=== PATIENT | male | born 1935 | race Caucasian/White ===

== ENCOUNTER → 2016-10-18 | Outpatient (CLI) | payer BC ==
[~2016-10-18] MED LIST: ALLO300T2 PO; ASPI-232 PO; ATOR-54 PO; CALC-220 PO; CHOL400C7 PO; CLOP1TAB15 PO; LISI-461 PO; METO25TA56 PO; NITR0.4S UT; OXYC-57 PO; SILD100T PO; TYLOTC500 PO; [UNRECOGNIZED DRUG - OTHER]
--- NOTE | 2016-10-18 16:36 | ECHOCARDIOGRAM REPORT ---
*NOTICE TO RECEIVING REPUBLICAN AGENCY This information is strictly Confidential and protected under [place] law. [place] law prohibits you from making any further disclosure of this information unless further disclosure is expressly permitted by the written consent of the person to whom it pertains or is authorized by law. A general authorization for the release of medical or other information is not sufficient for this purpose. Hospital accepts no responsibility if the information is made available to any other person, INCLUDING THE PATIENT. Interpretation Summary * Name: AURELIA GOOD Study Date: 10/18/2016 03:12 PM * Patient Location: [facility] HR: 68 * : 1935 (M/d/yyyy) Gender: Male Height: 71 in * Age: 81 yrs Ethnicity: [place] Weight: 200 lb * Ordering Physician: Gil Ambrose MD * Performed By: Autumn Snigh RCS * * Reason For Study: New heart murmur * BSA: 2.1 m2 * Normal biventricular systolic function. * Normal chamber dimensions. * No significant valvular abnormalities. * -- Conclusions -- * Aortic valve sclerosis mild, without significant aortic valvular stenosis. Procedure Details * A complete two-dimensional transthoracic echocardiogram was performed (2D, M-mode, Doppler and color flow Doppler). Left Ventricle * The left ventricle is normal in size. * There is normal left ventricular wall thickness. * Ejection Fraction = 60-65%. * Left ventricular systolic function is normal. * The left ventricular wall motion is normal. Right Ventricle * The right ventricle is normal in size and function. Atria * The left atrial size is normal. * Right atrial size is normal. * No ASD detected; PFO is not assessed. Mitral Valve * There is mild mitral annular calcification. * There is no mitral valve stenosis. * There is trace mitral regurgitation. Tricuspid Valve * The tricuspid valve is normal. * There is no tricuspid stenosis. * There is trace tricuspid regurgitation. Aortic Valve * The aortic valve is trileaflet. * The aortic valve opens well. * Aortic valve sclerosis mild, without significant aortic valvular stenosis. * Aortic stenosis is absent. * No aortic regurgitation is present. Pulmonic Valve * The pulmonic valve is not well visualized. * Trace pulmonic valvular regurgitation. Great Vessels * The aortic root is normal size. Pericardium/Pleural * There is no pericardial effusion. Great Vessels * Normal inferior vena cava diameter and respiratory variation suggests normal central venous pressure. MMode 2D Measurements and Calculations IVSd 1.1 cm LVIDd 4.6 cm LVIDs 3.0 cm LVPWd 1.1 cm IVS/LVPW 1.0 FS 34.3 % EDV(Teich) 95.8 ml ESV(Teich) 35.1 ml EF(Teich) 63.4 % EDV(cubed) 95.4 ml ESV(cubed) 27.1 ml EF(cubed) 71.6 % LV mass(C)d 181.8 grams LV mass(C)dI 86.2 grams/m\S\2 SV(Teich) 60.7 ml SI(Teich) 28.8 ml/m\S\2 SV(cubed) 68.3 ml SI(cubed) 32.4 ml/m\S\2 Ao root diam 3.0 cm Ao root area 7.0 cm\S\2 ACS 1.7 cm LA dimension 3.1 cm asc Aorta Diam 3.4 cm LA/Ao 1.0 LVAd ap4 25.5 cm\S\2 LVLd ap4 7.5 cm EDV(MOD-sp4) 74.1 ml EDV(sp4-el) 73.9 ml LVAs ap4 13.8 cm\S\2 LVLs ap4 6.1 cm ESV(MOD-sp4) 27.6 ml ESV(sp4-el) 26.4 ml EF(MOD-sp4) 62.7 % EF(sp4-el) 64.2 % LVAd ap2 26.4 cm\S\2 LVLd ap2 8.3 cm EDV(MOD-sp2) 70.6 ml EDV(sp2-el) 71.2 ml LVAs ap2 14.2 cm\S\2 LVLs ap2 6.6 cm ESV(MOD-sp2) 27.4 ml ESV(sp2-el) 26.1 ml EF(MOD-sp2) 61.1 % EF(sp2-el) 63.4 % LVLd %diff 10.0 % EDV(MOD-bp) 76.5 ml LVLs %diff 7.3 % ESV(MOD-bp) 28.7 ml EF(MOD-bp) 62.5 % SV(MOD-sp4) 46.5 ml SI(MOD-sp4) 22.1 ml/m\S\2 SV(MOD-sp2) 43.1 ml SI(MOD-sp2) 20.4 ml/m\S\2 SV(MOD-bp) 47.8 ml SI(MOD-bp) 22.7 ml/m\S\2 SV(sp4-el) 47.5 ml SI(sp4-el) 22.5 ml/m\S\2 SV(sp2-el) 45.1 ml SI(sp2-el) 21.4 ml/m\S\2 Doppler Measurements and Calculations MV E max farhan 83.0 cm/sec MV A max farhan 72.3 cm/sec MV E/A 1.1 MV dec time 0.23 sec Ao V2 max 150.7 cm/sec Ao max PG 9.1 mmHg Ao max PG (full) 6.7 mmHg LV V1 max PG 2.4 mmHg LV V1 max 77.6 cm/sec PA V2 max 144.8 cm/sec PA max PG 8.4 mmHg PA acc slope 375.7 cm/sec\S\2 PA acc time 0.14 sec PA pr(Accel) 14.4 mmHg
== END | disposition home or self-care (01) ==
LOC: C.CPL 13:42
PROVIDERS: ATTEND Family Medicine
DX: R01.1 Cardiac murmur, unspecified (principal)

== ENCOUNTER → 2017-05-20 | Outpatient (CLI) | payer BC ==
--- NOTE | 2017-05-20 15:23 | DIAGNOSTIC IMAGING REPORT ---
KUB HISTORY: N20.0 [id number] COMPARISON: KUB 03/17/2016. FINDINGS: The bowel gas pattern is non-obstructive. There is no organomegaly. Large bilateral extensive nephrolithiasis noted without significant change from comparison. No ureteral lithiasis identified. Multiple phleboliths are again seen within the pelvis. There are multiple surgical clips in the pelvis as well. Right hip arthroplasty noted. Moderate degenerative changes about the left hip. No pneumoperitoneum or pneumatosis. No fracture. IMPRESSION: 1. Bilateral nephrolithiasis redemonstrated. No ureteral lithiasis. 2. Nonobstructive bowel gas pattern. Electronically signed by: Stew Goetz M.D. 05/20/2017 3:21 PM Dictated Date/Time: 05/20/2017 3:20 PM
== END | disposition home or self-care (01) ==
LOC: C.RAD 14:35
PROVIDERS: ATTEND Urology
DX: C61 Malignant neoplasm of prostate (principal); N20.0 Calculus of kidney

== ENCOUNTER → 2017-06-28 | Outpatient (CLI) | payer BC ==
[2017-06-28 10:07] LABS: BASO % 0.3 %; BASO ABS # 0.02 K/uL (0-0.2); COMPLETE YES; EOS % 1.7 %; HEMATOCRIT 43.4 % (42-52); IG% 0.5 %; LYMPH % 16.6 %; LYMPH ABS # 1.29 K/uL (1.2-3.4); MEAN CORPUSCULAR HEMOGLOBIN 29.8 pg (25-34); MEAN CORPUSCULAR HGB CONC 32.7 g/dl (32-36); MEAN PLATELET VOLUME 10.2 fL (7.4-10.4); MONO % 11.7 %; NEUT % 69.2 %; PLATELET COUNT 234 K/uL (130-400); RED BLOOD COUNT 4.77 M/uL (4.7-6.1); WHITE BLOOD COUNT 7.77 K/uL (4.8-10.8)
[2017-06-28 10:25] LABS: ALT/SGPT 19 U/L (12-78); AST/SGOT 16 U/L (15-37); BLOOD UREA NITROGEN 14 mg/dl (7-18); BUN/CREATININE RATIO 11.9 (10-20); CALCIUM 9.7 mg/dl (8.5-10.1); CARBON DIOXIDE 29 mmol/L (21-32); CHLORIDE 106 mmol/L (98-107); CHOLESTEROL 84 mg/dl (0-200); GLUCOSE 120 mg/dl (70-99); POTASSIUM 4.2 mmol/L (3.5-5.1); SODIUM 140 mmol/L (136-145); TRIGLYCERIDES 77 mg/dl (0-150); VERY LOW DENSITY LIPOPROT CALC 15 mg/dl
[2017-06-28 10:28] LABS: HDL CHOLESTEROL 42 mg/dl
== END | disposition home or self-care (01) ==
LOC: C.LAB1850 09:03
PROVIDERS: ATTEND Internal Medicine Cardiovascular Disease
DX: E78.5 Hyperlipidemia, unspecified (principal); I25.10 Atherosclerotic heart disease of native coronary artery without angina pectoris; I10 Essential (primary) hypertension

== ENCOUNTER → 2017-08-31 | Outpatient (CLI) | payer BC ==
--- NOTE | 2017-08-31 09:39 | DIAGNOSTIC IMAGING REPORT ---
ABDOMEN COMPLETE (US) CLINICAL HISTORY: Blood in stool. Elevated LFTs. COMPARISON STUDY: Noncontrast CT scan performed June 2015 FINDINGS: There is a 15 mm right lobe hepatic cyst. There is intra and extrahepatic biliary ductal dilatation. The common bile duct measures 14 mm. There is a 3 cm hypoechoic lesion in the region the pancreatic head. This could represent a lymph node or pancreatic head mass. The gallbladder surgically absent The spleen measures 10.7 cm in length. The left kidney measures 10.4 cm in length. The right kidney measures 10 cm in length. There is bilateral nephrolithiasis. There is no evidence of abdominal aortic dilatation.. IMPRESSION: 1. Intra and extrahepatic biliary ductal dilatation. 2. Possible 3 cm mass in the pancreatic head region. CT scanning is recommended in follow-up. 3. Bilateral nephrolithiasis Electronically signed by: Loyd Valle M.D. 08/31/2017 9:38 AM Dictated Date/Time: 08/31/2017 9:34 AM
== END | disposition home or self-care (01) ==
LOC: C.ULTRBC 08:31
PROVIDERS: ATTEND Nurse Practitioner
DX: R79.89 Other specified abnormal findings of blood chemistry (principal); R19.7 Diarrhea, unspecified; K92.1 Melena

== ENCOUNTER → 2017-09-07 | Outpatient (CLI) | payer BC ==
[~2017-09-07] MED LIST changes: +OPTIRAY 320 IV PRN
--- NOTE | 2017-09-07 12:18 | DIAGNOSTIC IMAGING REPORT ---
CT OF THE ABDOMEN AND PELVIS WITH AND WITHOUT CONTRAST PANCREAS PROTOCOL CLINICAL HISTORY: JAUNDICE, PANCREATIC MASS. COMPARISON STUDY: CT of the abdomen and pelvis June 20, 2015 and abdominal ultrasound August 21, 2017. TECHNIQUE: Unenhanced, arterial and venous phase imaging was performed. Injection of 93 cc of Optiray 320 IV was uneventful. A dose lowering technique was utilized adhering to the principles of ALARA. Oral contrast was administered. FINDINGS: Visualized portions of the lung bases demonstrate multiple pulmonary nodules which are unchanged since CT of June 20, 2015. These are benign given stability. Several hepatic cysts are noted. No new hepatic lesions are present. Moderate pancreatic and biliary ductal dilatation is noted with abrupt cut off of the common bile duct and the main pancreatic duct. The main pancreatic duct cut off is within the pancreatic neck. There is a hypodense 4.4 x 2.3 cm pancreatic head and neck mass. There is pancreatic glandular atrophy. The mass results in severe narrowing of the portosplenic venous confluence. The main, left and right portal veins are patent. There is a minimally enlarged hepatic lymph node shown on axial image 104 of 511. This measures 1 cm in short axis diameter. A mildly enlarged portacaval lymph node measures 1.1 cm in short axis diameter. The superior mesenteric artery is patent. There is suspected narrowing of the gastroduodenal artery. There is no evidence for a bowel obstruction. Multiple bilateral renal calculi are noted. There are no ureteral calculi and there is no hydronephrosis. There are several renal cysts. The spleen and adrenal glands are unremarkable. No omental nodules are noted. The appendix is normal. Caliber and wall thickness of small and large bowel are normal. Prostate is surgically absent. There is a right hip arthroplasty. There are no suspicious osseous lesions. There is moderate atherosclerotic plaque of the abdominal aorta. IMPRESSION: 1. 4.4 x 2.3 cm pancreatic head and neck mass with resultant biliary and pancreatic ductal dilatation. 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 No involvement of the superior mesenteric artery. Mildly enlarged marika hepatis and aortocaval lymph nodes raise the possibility of shannon spread of disease. No evidence for distant metastatic disease within the abdomen or pelvis by CT. 2. Bilateral nephrolithiasis. 3. Several pulmonary nodules within the lung bases which are unchanged since CT of June 20, 2015 and are benign. Electronically signed by: Kevin Thomason M.D. 09/07/2017 12:17 PM Dictated Date/Time: 09/07/2017 11:31 AM
== END | disposition home or self-care (01) ==
LOC: C.CTS 11:03
PROVIDERS: ATTEND Family Medicine
DX: K86.9 Disease of pancreas, unspecified (principal); R17 Unspecified jaundice; N20.0 Calculus of kidney; R91.8 Other nonspecific abnormal finding of lung field; K83.8 Other specified diseases of biliary tract

== ENCOUNTER 2017-09-23 06:12 | Day surgery (SDC) | payer BC ==
[2017-09-22 15:10] VITALS: BMI 26.0
[~2017-09-23] VITALS: Ht 177.8 cm; Wt 80.5 kg
[~2017-09-23 06:12] MED LIST changes: -CALC-220 PO; +CALC600T9 PO; -NITR0.4S UT; +NTRGSL/4 UT; -OPTIRAY 320 IV PRN; -OXYC-57 PO; -SILD100T PO; -TYLOTC500 PO; -[UNRECOGNIZED DRUG - OTHER]
[2017-09-23] MEDS ORDERED: ZNTT/150 PO (06:41)
[2017-09-23] MEDS ORDERED: DIPH25CA65 PO (06:42)
[2017-09-23] MEDS ORDERED: KETO2SHA TOP (06:43)
[2017-09-23] MEDS ORDERED: ATOR-22 PO (06:44)
[2017-09-23] MEDS ORDERED: ACET-1311 PO (06:49)
[2017-09-23] MEDS ORDERED: PROPOFOL IV EMULSION 10 MG/ML 20 ML VIAL IV ONE (06:52)
[2017-09-23] MEDS ORDERED: LIDOCAINE HCL 2% 2 ML VIAL (20MG/ML) ONE (06:52)
[2017-09-23] MEDS ORDERED: FENTANYL CITRATE INJ 50 MCG/1 ML 2 ML VIAL ONE (06:52)
[2017-09-23] MEDS ORDERED: ONDANSETRON INJ 2 MG/ML 2 ML VIAL ONE (06:52)
[2017-09-23 06:58] VITALS: BP 100/56; PULSE 72; TEMP 36.6; O2SAT 95; Ht 177.8 cm; Wt 80.5 kg
[2017-09-23 07:18] LABS: BASO % 0.6 %; BASO ABS # 0.06 K/uL (0-0.2); EOS % 0.9 %; EOS ABS # 0.09 K/uL (0-0.5); HEMATOCRIT 32.7 % (42-52); HEMOGLOBIN 11.3 g/dL (14.0-18.0); IG# 0.22 K/uL (0.00-0.02); LYMPH % 13.2 %; LYMPH ABS # 1.29 K/uL (1.2-3.4); MEAN CELL VOLUME 86.3 fL (80-100); MEAN CORPUSCULAR HEMOGLOBIN 29.8 pg (25-34); MEAN PLATELET VOLUME 10.8 fL (7.4-10.4); MONO % 11.5 %; MONO ABS # 1.13 K/uL (0.11-0.59); NEUT % 71.6 %; NEUT ABS # 7.01 K/uL (1.4-6.5); PLATELET COUNT 282 K/uL (130-400); RED CELL DISTRIBUTION WIDTH CV 17.7 % (11.5-14.5); RED CELL DISTRIBUTION WIDTH SD 55.3 fL (36.4-46.3)
[2017-09-23 07:28] LABS: MEAN CORPUSCULAR HGB CONC 34.6 g/dl (32-36)
--- NOTE | 2017-09-23 07:36 | Endo History and Physical ---
History & Physical Date of Service: Sep 23, 2017. Chief Complaint: obstructive jaundice Referring Physician: Dr Ambrose History of Present Illness 1 month progressive painless jaundice Past Medical History Angioplasty/Stent, Arthritis, Male Genitourinary Prob., Cancer, High Cholesterol , Hypertension Past Surgical History Hx Cardiac Surgery: Yes (CARDIAC CATH WITH 2 STENTS-2008) Hx Abdominal Surgery: Yes (GALL BLADDER, LT INGUINAL HERNIA REPAIR) Hx Post-Op Nausea and Vomiting: No Hx Cancer Surgery: Yes (OPEN PROSTATECTOMY) Hx Thoracic Surgery: No Hx Orthopedic: Yes ( RT THR) Hx Urinary Tract Surgery: Yes (OPEN PROSTATECTOMY) Social History Smoking Status: Never Smoker Hx Substance Use: No Hx Alcohol Use: No Allergies Coded Allergies: Amoxicillin (Verified Allergy, Mild, ITCHINESS,RASH, 09/23/17) Penicillins (Verified Allergy, Mild, ITCHINESS, rash, 09/23/17) Current Medications Reported Home Medications Medications Dose Route/Sig Max Daily Dose Days Date Category Dose Instructions Tylenol (Acetaminophen) 325 Mg Tab 325 Mg PO Q6 PRN 09/23/17 Reported Ketoconazole (Ketoconazole (Topical)) 2 % Sha 1 Appln TOP 2XWK 30 09/23/17 Reported Benadryl Allergy (Diphenhydramine Hcl) 25 Mg Cap 1 Cap PO HS 30 09/23/17 Reported Zantac (Ranitidine HCl) 150 Mg Tab 75 Mg PO DAILY 09/23/17 Reported Nitrostat (Nitroglycerin) 0.4 Mg Tab 0.4 Mg UT PRN 09/22/17 Reported Calcium + D (Calcium Carbonate-Vitamin D) 1 Tab Tab 1 Tab PO QPM 09/22/17 Reported Vitamin D 400 Iu (Cholecalciferol) 400 Unit Cap 400 Inter.unit PO QAM 08/07/14 Reported Plavix (Clopidogrel Bisulfate) 75 Mg Tab 75 Mg PO QPM 07/26/14 Reported INSTRUCTED BY SURGEON PER DAUGHTER Lopressor (Metoprolol Tartrate) 25 Mg Tab 12.5 Mg PO BID 07/26/14 Reported Lipitor (Atorvastatin) 20 Mg Tab 20 Mg PO HS 04/27/13 Reported Aspir-81 (Aspirin) 81 Mg Tab 81 Mg PO QPM 04/27/13 Reported INSTRUCTED BY SURGEON PER DAUGHTER Zyloprim (Allopurinol) 300 Mg Tab 300 Mg PO QPM 04/27/13 Reported WITH SUPPER Zestril (Lisinopril) 10 Mg Tab 10 Mg PO QAM 04/27/13 Reported Vital Signs Weight (Kilograms): 80.5 Height (Feet): 5 Height (Inches): 10 Date Time Temp Pulse Resp B/P (MAP) Pulse Ox O2 Delivery O2 Flow Rate FiO2 09/23/17 06:58 36.6 72 18 100/56 (71) 95 Room Air Physical Exam General Appearance: WD/WN, no apparent distress Respiratory/Chest: Auscultation: breath sounds normal Cardiovascular: Heart Auscultation: RRR Abdomen: Bowel Sounds: normal Inspection & Palpation: soft, non-distended, no tenderness, guarding & rebound Assessment and Plan plan for EUS/FNA and ERCP with stent placement consent obtained pt agrees to proceed bart
[2017-09-23 07:39] LABS: BLOOD UREA NITROGEN 36 mg/dl (7-18); CARBON DIOXIDE 24 mmol/L (21-32); GLUCOSE 122 mg/dl (70-99); POTASSIUM 4.1 mmol/L (3.5-5.1); SODIUM 135 mmol/L (136-145)
[2017-09-23] MEDS ORDERED: EpHEDrine SULFATE INJ 50 MG/ML AMP IV PRN (07:45)
[2017-09-23] MEDS ORDERED: NALOXONE HCL 0.4 MG/1 ML VIAL/CARP IV PRN (07:45)
[2017-09-23] MEDS ORDERED: PHENYLEPHRINE 100MCG/ML 5ML SYR IV PRN (07:45)
[2017-09-23] MEDS ORDERED: HYDROmorphone INJ 1 MG/ML SYR IV PRN (07:45)
[2017-09-23] MEDS ORDERED: ONDANSETRON INJ 2 MG/ML 2 ML VIAL IV PRN (07:45)
[2017-09-23] MEDS ORDERED: FENTANYL CITRATE INJ 50 MCG/1 ML 2 ML VIAL IV PRN (07:45)
[2017-09-23] MEDS ORDERED: ATROPINE SULFATE 0.1 MG/ML 5ML SYR IV PRN (07:45)
[2017-09-23] MEDS ORDERED: FLUMAZENIL 0.1 MG/1 ML 10 ML VIAL IV PRN (07:45)
[2017-09-23] MEDS ORDERED: LABETALOL HCL IV 5 MG/ML 20ML IV PRN (07:45)
[2017-09-23] MEDS ORDERED: MEPERIDINE HCL 25 MG/ML CARP IV PRN (07:45)
[2017-09-23] MEDS ORDERED: SUCCINYLCHOLINE CHLORIDE 20 MG/ML 10 ML VIAL IV ONE (08:16)
[2017-09-23] MEDS ORDERED: EpHEDrine SULFATE 50MG/5ML SYR ONE (08:16)
[2017-09-23] MEDS ORDERED: PHENYLEPHRINE 100MCG/ML 5ML SYR ONE (09:09)
[2017-09-23] MEDS ORDERED: CIPROFLOXACIN / D5W 400 MG IV SCH (09:50)
[2017-09-23] MEDS ORDERED: CIPROFLOXACIN 400MG / 200ML D5W ONE (09:51)
--- NOTE | 2017-09-23 10:11 | DIAGNOSTIC IMAGING REPORT ---
ERCP BILIARY DUCTAL CLINICAL HISTORY: ERCP COMPARISON STUDY: CT abdomen and pelvis 09/07/2017 FLUOROSCOPY TIME: 3 minutes 53 seconds. FINDINGS: Dilatation of the biliary and most likely pancreatic ductal systems. This is followed by balloon sweeping of the common duct and placement of a common duct stent. Stent appears to be in good position. IMPRESSION: ERCP with stent placement of the common bile duct The above report was generated using voice recognition software. It may contain grammatical, syntax or spelling errors. Electronically signed by: Jose Marinelli M.D. 09/23/2017 10:10 AM Dictated Date/Time: 09/23/2017 10:08 AM
--- NOTE | 2017-09-23 10:14 | Discharge Instructions ---
Endoscopy Patient Instructions Date / Procedure(s) Performed Sep 23, 2017. ERCP, EGD, Other Allergy Information Coded Allergies: Amoxicillin (Verified Allergy, Mild, ITCHINESS,RASH, 09/23/17) Penicillins (Verified Allergy, Mild, ITCHINESS, rash, 09/23/17) Discharge Date / Findings Sep 23, 2017. Pancreatic mass CBD onstruction EUS with FNA- path pending EGD with bx- duodenitis ERC with stent placement Medication Instructions Restart Stopped Medication(s): Reported Home Medications Medications Dose Route/Sig Max Daily Dose Days Date Category Dose Instructions Tylenol (Acetaminophen) 325 Mg Tab 325 Mg PO Q6 PRN 09/23/17 Reported Ketoconazole (Ketoconazole (Topical)) 2 % Sha 1 Appln TOP 2XWK 30 09/23/17 Reported Benadryl Allergy (Diphenhydramine Hcl) 25 Mg Cap 1 Cap PO HS 30 09/23/17 Reported Zantac (Ranitidine HCl) 150 Mg Tab 75 Mg PO DAILY 09/23/17 Reported Nitrostat (Nitroglycerin) 0.4 Mg Tab 0.4 Mg UT PRN 09/22/17 Reported Calcium + D (Calcium Carbonate-Vitamin D) 1 Tab Tab 1 Tab PO QPM 09/22/17 Reported Vitamin D 400 Iu (Cholecalciferol) 400 Unit Cap 400 Inter.unit PO QAM 08/07/14 Reported Plavix (Clopidogrel Bisulfate) 75 Mg Tab 75 Mg PO QPM 07/26/14 Reported INSTRUCTED BY SURGEON PER DAUGHTER Lopressor (Metoprolol Tartrate) 25 Mg Tab 12.5 Mg PO BID 07/26/14 Reported Lipitor (Atorvastatin) 20 Mg Tab 20 Mg PO HS 04/27/13 Reported Aspir-81 (Aspirin) 81 Mg Tab 81 Mg PO QPM 04/27/13 Reported INSTRUCTED BY SURGEON PER DAUGHTER Zyloprim (Allopurinol) 300 Mg Tab 300 Mg PO QPM 04/27/13 Reported WITH SUPPER Zestril (Lisinopril) 10 Mg Tab 10 Mg PO QAM 04/27/13 Reported Cipro 500mg BID x 5 days Continue meds Oncology consult path pending Cipro 500mg BID x 5 days Continue meds Oncology consult path pending Reported Home Medications Medications Dose Route/Sig Max Daily Dose Days Date Category Dose Instructions Tylenol (Acetaminophen) 325 Mg Tab 325 Mg PO Q6 PRN 09/23/17 Reported Ketoconazole (Ketoconazole (Topical)) 2 % Sha 1 Appln TOP 2XWK 30 09/23/17 Reported Benadryl Allergy (Diphenhydramine Hcl) 25 Mg Cap 1 Cap PO HS 30 09/23/17 Reported Zantac (Ranitidine HCl) 150 Mg Tab 75 Mg PO DAILY 09/23/17 Reported Nitrostat (Nitroglycerin) 0.4 Mg Tab 0.4 Mg UT PRN 09/22/17 Reported Calcium + D (Calcium Carbonate-Vitamin D) 1 Tab Tab 1 Tab PO QPM 09/22/17 Reported Vitamin D 400 Iu (Cholecalciferol) 400 Unit Cap 400 Inter.unit PO QAM 08/07/14 Reported Plavix (Clopidogrel Bisulfate) 75 Mg Tab 75 Mg PO QPM 07/26/14 Reported INSTRUCTED BY SURGEON PER DAUGHTER Lopressor (Metoprolol Tartrate) 25 Mg Tab 12.5 Mg PO BID 07/26/14 Reported Lipitor (Atorvastatin) 20 Mg Tab 20 Mg PO HS 04/27/13 Reported Aspir-81 (Aspirin) 81 Mg Tab 81 Mg PO QPM 04/27/13 Reported INSTRUCTED BY SURGEON PER DAUGHTER Zyloprim (Allopurinol) 300 Mg Tab 300 Mg PO QPM 04/27/13 Reported WITH SUPPER Zestril (Lisinopril) 10 Mg Tab 10 Mg PO QAM 04/27/13 Reported Provider Instructions Activity Restrictions - No exercising or heavy lifting for 24 hours. - Do not drink alcohol the day of the procedure. - Do not drive a car or operate machinery until the day after the procedure. - Do not make any important decisions or sign important papers in 24 hours after the procedure. Following Day: - Return to full activity which may include returning to work/school. Diet Start your diet with liquids and light foods (jello, soup, juice, toast). Then eat your usual diet if not nauseated. Treatment For Common After Affects For mild abdominal pain, bloating, or excessive gas: - Rest - Eat lightly - Lie on right side Follow-Up Information Follow-up with as scheduled Anesthesia Information What You Should Know You have had a procedure that required some medicine to reduce anxiety and discomfort. This treatment is called moderate sedation. After receiving the treatment, you may be sleepy, but you will be able to breathe on your own. The effects of the treatment may last for several hours. Follow these instructions along with Activity/Diet recommendations noted above: * Do NOT do anything where dizziness or clumsiness would be dangerous. * Rest quietly at home today, then you can be up and about tomorrow. * Have a responsible person stay with you the rest of today. * You may have had an I.V. today. If so, you may take the dressing off later today. Recommendations Call your doctor if: * Trouble breathing * Continuous vomiting for more than 24 hours * Temperature above 101 degrees * Severe abdominal pain or bloating * Pain not relieved by pain medicine ordered * There is increased drainage or redness from any incision * A large amount of rectal bleeding greater than 2-3 tablespoons. (If you had a polyp/s removed or have hemorrhoids, a small amount of blood - from the rectum is to be expected.) * You have any unanswered questions or concerns. IN THE EVENT OF A SERIOUS EMERGENCY, GO TO THE NEAREST EMERGENCY ROOM Your discharge instructions were prepared by provider Wang Ordoñez. Patient Instructions Signature Page Francisco Desir Patient (or Guardian) Signature/Date: I have read and understand the instructions given to me by my caregivers. Caregiver/RN/Doctor Signature/Date: The above-named patient and/or guardian has received patient instructions on this date. + Original Patient Signature Page (only) stays with chart. Please make copy for patient.
--- NOTE | 2017-09-23 10:26 | GI REPORT ---
Procedure Date: 09/23/2017 7:57 AM Procedure: Upper GI endoscopy Indications: Abnormal CT of the GI tract, Weight loss Medicines: General Anesthesia Complications: No immediate complications. Estimated blood loss: Minimal. Estimated Blood Loss: Estimated blood loss was minimal. Procedure: Pre-Anesthesia Assessment: - Prior to the procedure, a History and Physical was performed, and patient medications and allergies were reviewed. The patient's tolerance of previous anesthesia was also reviewed. The risks and benefits of the procedure and the sedation options and risks were discussed with the patient. All questions were answered, and informed consent was obtained. Prior Anticoagulants: The patient has taken no previous anticoagulant or antiplatelet agents. ASA Grade Assessment: II - A patient with mild systemic disease. After reviewing the risks and benefits, the patient was deemed in satisfactory condition to undergo the procedure. After obtaining informed consent, the endoscope was passed under direct vision. Throughout the procedure, the patient's blood pressure, pulse, and oxygen saturations were monitored continuously. The scope was introduced through the mouth, and advanced to the second part of duodenum. The upper GI endoscopy was accomplished without difficulty. The patient tolerated the procedure well. Findings: The examined esophagus was normal. The entire examined stomach was normal. Retained gastric contents are not identified on this exam. Patchy moderate inflammation characterized by congestion (edema), erosions and erythema was found in the duodenal bulb. The ampulla, first portion of the duodenum, second portion of the duodenum and area of the papilla were normal. The cardia and gastric fundus were normal on retroflexion. The gastric body and gastric antrum were normal. Biopsies were taken with a cold forceps for histology. Estimated blood loss was minimal. Verification of patient identification for the specimen was done by the physician and graphic technician using the patient's name and medical record number. Impression: - Normal esophagus. - Normal stomach. - Duodenitis. - Normal ampulla, first portion of the duodenum, second portion of the duodenum and area of the papilla. - Normal gastric body and antrum. Biopsied. Recommendation: - Discharge patient to home (ambulatory). - Advance diet as tolerated. - Continue present medications. - Await pathology results. - Perform an ERCP today. - Perform an upper endoscopic ultrasound (UEUS) today. - Return to GI clinic as previously scheduled. - Return to referring physician as previously scheduled. MD Wang Valle MD 09/23/2017 10:26:47 AM This report has been signed electronically. Note Initiated On: 09/23/2017 7:57 AM I attest to the content of the Intraoperative Record and orders documented therein, exceptions below
--- NOTE | 2017-09-23 10:35 | GI REPORT ---
Procedure Date: 09/23/2017 7:58 AM Procedure: ERCP Indications: Abnormal abdominal CT, Jaundice, Elevated liver enzymes Medicines: General Anesthesia Complications: No immediate complications. Estimated blood loss: None Estimated Blood Loss: Estimated blood loss: none. Procedure: Pre-Anesthesia Assessment: - Prior to the procedure, a History and Physical was performed, and patient medications and allergies were reviewed. The patient's tolerance of previous anesthesia was also reviewed. The risks and benefits of the procedure and the sedation options and risks were discussed with the patient. All questions were answered, and informed consent was obtained. Prior Anticoagulants: The patient has taken no previous anticoagulant or antiplatelet agents. ASA Grade Assessment: II - A patient with mild systemic disease. After reviewing the risks and benefits, the patient was deemed in satisfactory condition to undergo the procedure. After obtaining informed consent, the scope was passed under direct vision. Throughout the procedure, the patient's blood pressure, pulse, and oxygen saturations were monitored continuously. The Scope was introduced through the mouth, and advanced to the duodenum and used to inject contrast into the bile duct. The ERCP was accomplished without difficulty. The patient tolerated the procedure well. Findings: A executive steward film of the abdomen was obtained. Surgical clips, consistent with a previous cholecystectomy, were seen in the area of the right upper quadrant of the abdomen. The esophagus was successfully intubated under direct vision. The scope was advanced to a normal major papilla in the descending duodenum without detailed examination of the pharynx, larynx and associated structures, and upper GI tract. The upper GI tract was grossly normal. A 0.035 inch straight standard wire was passed into the biliary tree. The short-nosed traction sphincterotome was passed over the guidewire and the bile duct was then deeply cannulated. Contrast was injected. I personally interpreted the bile duct images. Ductal flow of contrast was adequate. Image quality was adequate. Contrast extended to the entire biliary tree. Opacification of the entire biliary tree was successful. The maximum diameter of the ducts was 15 mm. The middle third of the main bile duct contained a single localized stenosis 20 mm in length. The upper third of the main bile duct, left main hepatic duct and right main hepatic duct were moderately dilated and diffusely dilated, secondary to a stricture. The largest diameter was 15 mm. A 3 mm biliary sphincterotomy was made with a traction (standard) sphincterotome using ERBE electrocautery. There was no post-sphincterotomy bleeding. One 10 Fr by 10 cm temporary plastic biliary stent with a single external flap and a single internal flap was placed 9 cm into the common bile duct. Bile flowed through the stent. The stent was in good position. 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 - The upper third of the main bile duct, left main hepatic duct and right main hepatic duct were moderately dilated, secondary to a stricture. - A biliary sphincterotomy was performed. - One temporary plastic biliary stent was placed into the common bile duct. Recommendation: - Discharge patient to home (ambulatory). - Advance diet as tolerated. - Cipro (ciprofloxacin) 500 mg PO BID for 5 days. - Refer to an oncologist. - Refer to a surgeon. - Return to GI clinic as previously scheduled. - Check liver enzymes (AST, ALT, alkaline phosphatase, bilirubin) in 5 days. MD Wang Valle MD 09/23/2017 10:34:48 AM This report has been signed electronically. Note Initiated On: 09/23/2017 7:58 AM I attest to the content of the Intraoperative Record and orders documented therein, exceptions below
--- NOTE | 2017-09-23 10:44 | Anesthesiology Progress Note ---
Anesthesia Post Op Note Date & Time Sep 23, 2017 at 10:44 Vital Signs Pain Intensity: 0 Vital Signs Past 12 Hours Date Time Temp Pulse Resp B/P (MAP) Pulse Ox O2 Delivery O2 Flow Rate FiO2 09/23/17 10:36 74 15 100 09/23/17 10:36 73 15 113/79 100 09/23/17 10:31 125/60 09/23/17 10:26 75 16 115/62 100 09/23/17 10:26 74 16 09/23/17 10:25 76 16 09/23/17 10:25 76 16 100 09/23/17 10:23 77 16 100 09/23/17 10:23 77 16 100 09/23/17 10:21 110/86 09/23/17 10:16 100/66 09/23/17 10:14 141/69 09/23/17 10:13 84 16 09/23/17 10:13 36.0 84 15 141/69 100 Oxymask 10 09/23/17 10:13 84 16 100 09/23/17 06:58 36.6 72 18 100/56 (71) 95 Room Air Notes Mental Status: alert / awake / arousable, participated in evaluation Pt Amnestic to Procedure: Yes Nausea / Vomiting: adequately controlled Pain: adequately controlled Airway Patency, RR, SpO2: stable & adequate BP & HR: stable & adequate Hydration State: stable & adequate Anesthetic Complications: no major complications apparent
--- NOTE | 2017-09-23 10:53 | GI REPORT ---
Procedure Date: 09/23/2017 7:58 AM Procedure: Upper EUS Indications: Common bile duct dilation (acquired) seen on CT scan, Suspected mass in pancreas on CT scan, Obstruction of bile duct on CT, Jaundice, Weight loss Medicines: General Anesthesia, Cipro 400 mg IV Complications: No immediate complications. Estimated blood loss: Minimal. Estimated Blood Loss: Estimated blood loss was minimal. Procedure: Pre-Anesthesia Assessment: - Prior to the procedure, a History and Physical was performed, and patient medications and allergies were reviewed. The patient's tolerance of previous anesthesia was also reviewed. The risks and benefits of the procedure and the sedation options and risks were discussed with the patient. All questions were answered, and informed consent was obtained. Prior Anticoagulants: The patient has taken Plavix (clopidogrel), last dose was 1 day prior to procedure. ASA Grade Assessment: II - A patient with mild systemic disease. After reviewing the risks and benefits, the patient was deemed in satisfactory condition to undergo the procedure. After obtaining informed consent, the endoscope was passed under direct vision. Throughout the procedure, the patient's blood pressure, pulse, and oxygen saturations were monitored continuously. The Endosonoscope was introduced through the mouth, and advanced to the duodenum for ultrasound examination from the esophagus, stomach and duodenum. The upper EUS was accomplished without difficulty. The patient tolerated the procedure well. Findings: Endoscopic Finding : The examined esophagus was normal. The entire examined stomach was normal. A single localized erosion without bleeding was found in the duodenal bulb. The second portion of the duodenum was normal. Endosonographic Finding : There was no sign of significant endosonographic abnormality in the ampulla. No pathologic lymphadenopathy and no masses were identified. There was dilation in the middle third of the main bile duct and in the upper third of the main bile duct which measured up to 15 mm. There was no sign of significant endosonographic abnormality in the entire examined liver. Homogeneous parenchyma, no focal pathology, no pathologic lymphadenopathy and no masses were identified. A round mass was identified in the pancreatic head and pancreatic neck. The mass was hypoechoic and heterogenous. The mass measured 30 mm by 26 mm in maximal cross-sectional diameter. The endosonographic borders were poorly-defined. There was sonographic evidence suggesting invasion into the splenic vein (manifested by abutment). The remainder of the pancreas was examined. The endosonographic appearance of parenchyma and the upstream pancreatic duct indicated duct dilation. Fine needle aspiration for cytology was performed. Color Doppler imaging was utilized prior to needle puncture to confirm a lack of significant vascular structures within the needle path. Four passes were made with the 22 gauge needle using a transduodenal approach. A stylet was used. A band log mill and carriage operator was present to evaluate the adequacy of the specimen. The cellularity of the specimen was adequate. Final cytology results are pending. Verification of patient identification for the specimen was done by the physician and biometric technician using the patient's name and medical record number. An irregular mass was identified in the pancreatic body and pancreatic neck. The mass was hypoechoic and heterogenous. The mass measured 22 mm by 24 mm in maximal cross-sectional diameter. The endosonographic borders were poorly-defined. Fine needle aspiration for cytology was performed. Color Doppler imaging was utilized prior to needle puncture to confirm a lack of significant vascular structures within the needle path. Two passes were made with the 22 gauge needle using a transgastric approach. A stylet was used. A band log mill and carriage operator was present to evaluate the adequacy of the specimen. Final cytology results are pending. No lymphadenopathy seen. Impression: - Normal esophagus. - Normal stomach. - Duodenal erosion without bleeding. - Normal second portion of the duodenum. - There was no sign of significant pathology in the ampulla. - There was dilation in the middle third of the main bile duct and in the upper third of the main bile duct which measured up to 15 mm. - There was no evidence of significant pathology in the entire examined liver. - A mass was identified in the pancreatic head and pancreatic neck. Fine needle aspiration performed. - A mass was identified in the pancreatic body and pancreatic neck. Fine needle aspiration performed. Recommendation: - Discharge patient to home (ambulatory). - Advance diet as tolerated. - Perform an ERCP today. - Await cytology results. - Return to GI clinic as previously scheduled. - Refer to an oncologist. - Refer to a surgeon. - Return to referring physician as previously scheduled. - Cipro (ciprofloxacin) 500 mg PO BID for 5 weeks. - Resume aspirin in 3 days and Plavix (clopidogrel) in 3 days at prior doses. MD Wang Valle MD 09/23/2017 10:52:50 AM This report has been signed electronically. Note Initiated On: 09/23/2017 7:58 AM I attest to the content of the Intraoperative Record and orders documented therein, exceptions below
[2017-09-23 11:00] VITALS: BP 116/63; PULSE 72; TEMP 36.4; O2SAT 100
[2017-09-23 11:30] VITALS: BP 118/67; PULSE 69; TEMP 36.4; O2SAT 100
[2017-09-23 12:00] VITALS: BP 112/64; PULSE 70; TEMP 36.4; O2SAT 100
== END 2017-09-23 12:31 | disposition home or self-care (01) ==
LOC: C.ACU 06:12
PROVIDERS: ATTEND Internal Medicine Gastroenterology
DX: K29.50 Unspecified chronic gastritis without bleeding (principal); C25.9 Malignant neoplasm of pancreas, unspecified; K83.1 Obstruction of bile duct; R93.3 Abnormal findings on diagnostic imaging of other parts of digestive tract; R63.4 Abnormal weight loss; K29.80 Duodenitis without bleeding; Z88.0 Allergy status to penicillin; Z88.1 Allergy status to other antibiotic agents; I10 Essential (primary) hypertension; E78.00 Pure hypercholesterolemia, unspecified; Z90.89 Acquired absence of other organs; Z96.641 Presence of right artificial hip joint; Z79.01 Long term (current) use of anticoagulants; Z79.899 Other long term (current) drug therapy; Z79.82 Long term (current) use of aspirin; Z90.49 Acquired absence of other specified parts of digestive tract

== ENCOUNTER 2017-10-10 14:21 | Day surgery (SDC) | payer BC ==
[2017-10-03 16:02] VITALS: BMI 26.0
[~2017-10-10] VITALS: Ht 177.8 cm; Wt 83.0 kg
[~2017-10-10 14:21] MED LIST changes: +ACET-1311 PO; +DIPH25CA65 PO; +KETO2SHA TOP; +LACTATED RINGER'S 1000ML 1,000 ML IV SCH; +ZNTT/150 PO
[2017-10-10] MEDS ORDERED: PRED-301 PO (15:07)
[2017-10-10] MEDS ORDERED: CHOL4POW11 PO (15:08)
[2017-10-10 15:09] VITALS: BP 127/61; PULSE 64; TEMP 36.8; O2SAT 100; Ht 177.8 cm; Wt 83.0 kg
[2017-10-10] MEDS ORDERED: ONDA4TAB46 PO (15:37)
[2017-10-10] MEDS ORDERED: GEMC1INJ IV (15:37)
[2017-10-10] MEDS ORDERED: PROPOFOL IV EMULSION 10 MG/ML 20 ML VIAL IV ONE (16:16)
[2017-10-10] MEDS ORDERED: NEOSTIGMINE METHYLSULFATE 5 MG/5 ML SYR ONE (16:16)
[2017-10-10] MEDS ORDERED: LIDOCAINE HCL 2% 2 ML VIAL (20MG/ML) ONE (16:16)
[2017-10-10] MEDS ORDERED: ONDANSETRON INJ 2 MG/ML 2 ML VIAL ONE (16:16)
[2017-10-10] MEDS ORDERED: GLYCOPYRROLATE INJ 0.2 MG/ML VIAL ONE (16:16)
[2017-10-10] MEDS ORDERED: FENTANYL CITRATE INJ 50 MCG/1 ML 2 ML VIAL ONE ×2 (16:16→17:46)
[2017-10-10] MEDS ORDERED: DEXAMETHASONE SOD INJ 4 MG/ML VIAL ONE (16:16)
[2017-10-10] MEDS ORDERED: SUCCINYLCHOLINE CHLORIDE 20 MG/ML 10 ML VIAL IV ONE (16:20)
[2017-10-10] MEDS ORDERED: PROMETHAZINE HCL INJ 6.25 MG in SODIUM CHLORIDE 0.9% 50ML 50 ML IV PRN (16:45)
[2017-10-10] MEDS ORDERED: ATROPINE SULFATE 0.1 MG/ML 5ML SYR IV PRN (16:45)
[2017-10-10] MEDS ORDERED: EpHEDrine SULFATE INJ 50 MG/ML AMP IV PRN (16:45)
[2017-10-10] MEDS ORDERED: FENTANYL CITRATE INJ 50 MCG/1 ML 2 ML VIAL IV PRN (16:45)
[2017-10-10] MEDS ORDERED: ONDANSETRON INJ 2 MG/ML 2 ML VIAL IV PRN (16:45)
--- NOTE | 2017-10-10 17:08 | Endo History and Physical ---
History & Physical Date of Service: Oct 10, 2017. Chief Complaint: obstructive jaundice Referring Physician: History of Present Illness stent change/ jaundice Past Medical History Angioplasty/Stent, Arthritis, Male Genitourinary Prob., Cancer, High Cholesterol , Hypertension Past Surgical History Hx Cardiac Surgery: Yes (CARDIAC CATH WITH 2 STENTS-2008) Hx Abdominal Surgery: Yes (GALL BLADDER, LT INGUINAL HERNIA REPAIR) Hx Post-Op Nausea and Vomiting: No Hx Cancer Surgery: Yes (OPEN PROSTATECTOMY) Hx Thoracic Surgery: No Hx Orthopedic: Yes ( RT THR) Hx Urinary Tract Surgery: Yes (OPEN PROSTATECTOMY) Social History Smoking Status: Never Smoker Hx Substance Use: No Hx Alcohol Use: No Allergies Coded Allergies: Amoxicillin (Verified Allergy, Mild, ITCHINESS,RASH, 10/10/17) Penicillins (Verified Allergy, Mild, ITCHINESS, rash, 10/10/17) Current Medications Reported Home Medications Medications Dose Route/Sig Max Daily Dose Days Date Category Dose Instructions Zofran (Ondansetron HCl) 4 Mg Tab Unknown Dose PO Q8 PRN 10/10/17 Reported Gemzar (Gemcitabine Hcl) 1 Gm Inj Unknown Dose IV WK 10/10/17 Reported Questran (Cholestyramine) 4 Gm Pow 4 Gm PO DAILY 10/10/17 Reported Prednisone 5 Mg Tab 5 Mg PO QAM 10/10/17 Reported Tylenol (Acetaminophen) 325 Mg Tab 325 Mg PO Q6 PRN 09/23/17 Reported Ketoconazole (Ketoconazole (Topical)) 2 % Sha 1 Appln TOP 2XWK 30 09/23/17 Reported Nitrostat (Nitroglycerin) 0.4 Mg Tab 0.4 Mg UT PRN 09/22/17 Reported Calcium + D (Calcium Carbonate-Vitamin D) 1 Tab Tab 1 Tab PO QAM 09/22/17 Reported Vitamin D 400 Iu (Cholecalciferol) 400 Unit Cap 400 Inter.unit PO QAM 08/07/14 Reported Plavix (Clopidogrel Bisulfate) 75 Mg Tab 75 Mg PO QPM 07/26/14 Reported INSTRUCTED BY SURGEON PER DAUGHTER Lopressor (Metoprolol Tartrate) 25 Mg Tab 12.5 Mg PO QPM 07/26/14 Reported Lipitor (Atorvastatin) 20 Mg Tab 20 Mg PO HS 04/27/13 Reported Aspir-81 (Aspirin) 81 Mg Tab 81 Mg PO QAM 04/27/13 Reported INSTRUCTED BY SURGEON PER DAUGHTER Zyloprim (Allopurinol) 300 Mg Tab 300 Mg PO QPM 04/27/13 Reported WITH SUPPER Vital Signs Weight (Kilograms): 83.01 Height (Feet): 5 Height (Inches): 10 Date Time Temp Pulse Resp B/P (MAP) Pulse Ox O2 Delivery O2 Flow Rate FiO2 10/10/17 15:09 36.8 64 20 127/61 (83) 100 Room Air Physical Exam General Appearance: WD/WN, no apparent distress Respiratory/Chest: Auscultation: breath sounds normal Cardiovascular: Heart Auscultation: RRR Abdomen: Bowel Sounds: normal Inspection & Palpation: soft, non-distended, no tenderness, guarding & rebound Assessment and Plan ERCP for stent change consent obtained risk/benefit alternaitve d/w pt including 55 pancreatitis pt/daughter agrees to proceed
[2017-10-10] MEDS ORDERED: SODIUM CHLORIDE 0.9% 500ML 500 ML IV ONE (17:15)
[2017-10-10] MEDS ORDERED: NURSING VERBAL MED ORDER ONE (17:15)
[2017-10-10] MEDS ORDERED: CIPROFLOXACIN / D5W 400 MG IV SCH (17:15)
[2017-10-10] MEDS ORDERED: EpHEDrine SULFATE 50MG/5ML SYR ONE (17:53)
--- NOTE | 2017-10-10 18:30 | GI REPORT ---
Procedure Date: 10/10/2017 4:25 PM Procedure: ERCP Indications: Jaundice, Stent change Medicines: General Anesthesia Complications: No immediate complications. Estimated blood loss: None Estimated Blood Loss: Estimated blood loss: none. Procedure: Pre-Anesthesia Assessment: - Prior to the procedure, a History and Physical was performed, and patient medications and allergies were reviewed. The patient's tolerance of previous anesthesia was also reviewed. The risks and benefits of the procedure and the sedation options and risks were discussed with the patient. All questions were answered, and informed consent was obtained. Prior Anticoagulants: The patient has taken no previous anticoagulant or antiplatelet agents. ASA Grade Assessment: II - A patient with mild systemic disease. After reviewing the risks and benefits, the patient was deemed in satisfactory condition to undergo the procedure. After obtaining informed consent, the scope was passed under direct vision. Throughout the procedure, the patient's blood pressure, pulse, and oxygen saturations were monitored continuously. The Scope was introduced through the mouth, and advanced to the duodenum and used to inject contrast into the bile duct. The ERCP was accomplished without difficulty. The patient tolerated the procedure well. Findings: A music therapy specialist film of the abdomen was obtained. Surgical clips, consistent with a previous cholecystectomy, were seen in the area of the right upper quadrant of the abdomen. A biliary stent was visible on the music therapy specialist film. One stent was removed from the biliary tree using a snare. The esophagus was successfully intubated under direct vision. The scope was advanced to a normal major papilla in the descending duodenum without detailed examination of the pharynx, larynx and associated structures, and upper GI tract. The upper GI tract was grossly normal. A 0.035 inch straight standard wire was passed into the biliary tree. The 12 mm balloon was passed over the guidewire and the bile duct was then deeply cannulated. Contrast was injected. I personally interpreted the bile duct images. Ductal flow of contrast was adequate. Image quality was adequate. Contrast extended to the entire biliary tree. Opacification of the middle third of the main bile duct was successful. The maximum diameter of the ducts was 11 mm. The middle third of the main bile duct contained a single moderate stenosis 10 mm in length. One 10 mm by 6 cm covered metal stent was placed 5.5 cm into the common bile duct. Bile flowed through the stent. The stent was in good position. Occlusion cholangiogram before and after metal stent placement reveals only an extrahepatic stricture. The intrahepatic are mildly prominent, however no focal stenosis is identified in the left or right main ducts. -Following stent replacement there is prompt drainage of all contrast from the biliary system -The PD was neither instrumented nor opacified. No samples taken. Bile was noted in the duodenum prior to removal of previously placed stent. Upon removal, plastic stent was inspected and is intact. Impression: - A moderate biliary stricture was found. The stricture was malignant appearing. - One stent was removed from the biliary tree. - One covered metal stent was placed into the common bile duct. Recommendation: - Discharge patient to home (ambulatory). - Advance diet as tolerated. - Cipro (ciprofloxacin) 500 mg PO BID for 5 days. - Check liver enzymes (AST, ALT, alkaline phosphatase, bilirubin) in 1 week. - Return to GI clinic as previously scheduled. - Repeat ERCP to be determined based on CTX response and/or plans for surgery. This should be removed no longer than 4 months. MD Wang Valle MD 10/10/2017 6:30:09 PM This report has been signed electronically. Note Initiated On: 10/10/2017 4:25 PM I attest to the content of the Intraoperative Record and orders documented therein, exceptions below
--- NOTE | 2017-10-10 18:33 | Discharge Instructions ---
Endoscopy Patient Instructions Date / Procedure(s) Performed Oct 10, 2017. ERCP Allergy Information Coded Allergies: Amoxicillin (Verified Allergy, Mild, ITCHINESS,RASH, 10/10/17) Penicillins (Verified Allergy, Mild, ITCHINESS, rash, 10/10/17) Discharge Date / Findings Oct 10, 2017. stent replaced with metal stent Medication Instructions Restart Stopped Medication(s): Reported Home Medications Medications Dose Route/Sig Max Daily Dose Days Date Category Dose Instructions Zofran (Ondansetron HCl) 4 Mg Tab Unknown Dose PO Q8 PRN 10/10/17 Reported Gemzar (Gemcitabine Hcl) 1 Gm Inj Unknown Dose IV WK 10/10/17 Reported Questran (Cholestyramine) 4 Gm Pow 4 Gm PO DAILY 10/10/17 Reported Prednisone 5 Mg Tab 5 Mg PO QAM 10/10/17 Reported Tylenol (Acetaminophen) 325 Mg Tab 325 Mg PO Q6 PRN 09/23/17 Reported Ketoconazole (Ketoconazole (Topical)) 2 % Sha 1 Appln TOP 2XWK 30 09/23/17 Reported Nitrostat (Nitroglycerin) 0.4 Mg Tab 0.4 Mg UT PRN 09/22/17 Reported Calcium + D (Calcium Carbonate-Vitamin D) 1 Tab Tab 1 Tab PO QAM 09/22/17 Reported Vitamin D 400 Iu (Cholecalciferol) 400 Unit Cap 400 Inter.unit PO QAM 08/07/14 Reported Plavix (Clopidogrel Bisulfate) 75 Mg Tab 75 Mg PO QPM 07/26/14 Reported INSTRUCTED BY SURGEON PER DAUGHTER Lopressor (Metoprolol Tartrate) 25 Mg Tab 12.5 Mg PO QPM 07/26/14 Reported Lipitor (Atorvastatin) 20 Mg Tab 20 Mg PO HS 04/27/13 Reported Aspir-81 (Aspirin) 81 Mg Tab 81 Mg PO QAM 04/27/13 Reported INSTRUCTED BY SURGEON PER DAUGHTER Zyloprim (Allopurinol) 300 Mg Tab 300 Mg PO QPM 04/27/13 Reported WITH SUPPER Cipro 500mg twice daily x 5 days Provider Instructions Activity Restrictions - No exercising or heavy lifting for 24 hours. - Do not drink alcohol the day of the procedure. - Do not drive a car or operate machinery until the day after the procedure. - Do not make any important decisions or sign important papers in 24 hours after the procedure. Following Day: - Return to full activity which may include returning to work/school. Diet Start your diet with liquids and light foods (jello, soup, juice, toast). Then eat your usual diet if not nauseated. Treatment For Common After Affects For mild abdominal pain, bloating, or excessive gas: - Rest - Eat lightly - Lie on right side Reported Home Medications Medications Dose Route/Sig Max Daily Dose Days Date Category Dose Instructions Zofran (Ondansetron HCl) 4 Mg Tab Unknown Dose PO Q8 PRN 10/10/17 Reported Gemzar (Gemcitabine Hcl) 1 Gm Inj Unknown Dose IV WK 10/10/17 Reported Questran (Cholestyramine) 4 Gm Pow 4 Gm PO DAILY 10/10/17 Reported Prednisone 5 Mg Tab 5 Mg PO QAM 10/10/17 Reported Tylenol (Acetaminophen) 325 Mg Tab 325 Mg PO Q6 PRN 09/23/17 Reported Ketoconazole (Ketoconazole (Topical)) 2 % Sha 1 Appln TOP 2XWK 30 09/23/17 Reported Nitrostat (Nitroglycerin) 0.4 Mg Tab 0.4 Mg UT PRN 09/22/17 Reported Calcium + D (Calcium Carbonate-Vitamin D) 1 Tab Tab 1 Tab PO QAM 09/22/17 Reported Vitamin D 400 Iu (Cholecalciferol) 400 Unit Cap 400 Inter.unit PO QAM 08/07/14 Reported Plavix (Clopidogrel Bisulfate) 75 Mg Tab 75 Mg PO QPM 07/26/14 Reported INSTRUCTED BY SURGEON PER DAUGHTER Lopressor (Metoprolol Tartrate) 25 Mg Tab 12.5 Mg PO QPM 07/26/14 Reported Lipitor (Atorvastatin) 20 Mg Tab 20 Mg PO HS 04/27/13 Reported Aspir-81 (Aspirin) 81 Mg Tab 81 Mg PO QAM 04/27/13 Reported INSTRUCTED BY SURGEON PER DAUGHTER Zyloprim (Allopurinol) 300 Mg Tab 300 Mg PO QPM 04/27/13 Reported WITH SUPPER Cipro 500mg twice daily x 5 days Follow-Up Information Follow-up with as scheduled Anesthesia Information What You Should Know You have had a procedure that required some medicine to reduce anxiety and discomfort. This treatment is called moderate sedation. After receiving the treatment, you may be sleepy, but you will be able to breathe on your own. The effects of the treatment may last for several hours. Follow these instructions along with Activity/Diet recommendations noted above: * Do NOT do anything where dizziness or clumsiness would be dangerous. * Rest quietly at home today, then you can be up and about tomorrow. * Have a responsible person stay with you the rest of today. * You may have had an I.V. today. If so, you may take the dressing off later today. Recommendations Call your doctor if: * Trouble breathing * Continuous vomiting for more than 24 hours * Temperature above 101 degrees * Severe abdominal pain or bloating * Pain not relieved by pain medicine ordered * There is increased drainage or redness from any incision * A large amount of rectal bleeding greater than 2-3 tablespoons. (If you had a polyp/s removed or have hemorrhoids, a small amount of blood - from the rectum is to be expected.) * You have any unanswered questions or concerns. IN THE EVENT OF A SERIOUS EMERGENCY, GO TO THE NEAREST EMERGENCY ROOM Your discharge instructions were prepared by provider Wang Ordoñez. Patient Instructions Signature Page Francisco Desir Patient (or Guardian) Signature/Date: I have read and understand the instructions given to me by my caregivers. Caregiver/RN/Doctor Signature/Date: The above-named patient and/or guardian has received patient instructions on this date. + Original Patient Signature Page (only) stays with chart. Please make copy for patient.
--- NOTE | 2017-10-10 18:35 | DIAGNOSTIC IMAGING REPORT ---
ERCP BILIARY DUCTAL CLINICAL HISTORY: ERCP IN OR COMPARISON STUDY: 09/23/2017 FLUOROSCOPY TIME: 2 minutes 30 seconds. FINDINGS: Persistent distention of the biliary duct system. This is followed by stent removal and placement of a wire mesh stent. IMPRESSION: Successful placement of a wire mesh stent. The above report was generated using voice recognition software. It may contain grammatical, syntax or spelling errors. Electronically signed by: Jose Marinelli M.D. 10/10/2017 6:34 PM Dictated Date/Time: 10/10/2017 6:32 PM
--- NOTE | 2017-10-10 19:06 | Anesthesiology Progress Note ---
Anesthesia Post Op Note Date & Time Oct 10, 2017 at 19:06 Vital Signs Pain Intensity: 0 Vital Signs Past 12 Hours Date Time Temp Pulse Resp B/P (MAP) Pulse Ox O2 Delivery O2 Flow Rate FiO2 10/10/17 19:00 36.2 70 12 155/81 99 Room Air 10/10/17 18:50 77 17 158/88 100 Oxymask 10 10/10/17 18:40 72 12 161/84 100 Oxymask 10 10/10/17 18:30 36.0 81 12 168/80 100 Oxymask 10 10/10/17 15:09 36.8 64 20 127/61 (83) 100 Room Air Notes Mental Status: alert / awake / arousable, participated in evaluation Pt Amnestic to Procedure: Yes Nausea / Vomiting: adequately controlled Pain: adequately controlled Airway Patency, RR, SpO2: stable & adequate BP & HR: stable & adequate Hydration State: stable & adequate Anesthetic Complications: no major complications apparent
[2017-10-10 19:12] VITALS: BP 157/78; PULSE 84; TEMP 36.6; O2SAT 100
[2017-10-10 19:45] VITALS: BP 143/72; PULSE 98; TEMP 36.7; O2SAT 96
== END 2017-10-10 19:55 | disposition home or self-care (01) ==
LOC: C.ACU 14:21
PROVIDERS: ATTEND Internal Medicine Gastroenterology
DX: K83.1 Obstruction of bile duct (principal); I25.10 Atherosclerotic heart disease of native coronary artery without angina pectoris; I10 Essential (primary) hypertension; M19.90 Unspecified osteoarthritis, unspecified site; E78.00 Pure hypercholesterolemia, unspecified; Z79.52 Long term (current) use of systemic steroids; Z79.82 Long term (current) use of aspirin; Z98.61 Coronary angioplasty status; Z90.49 Acquired absence of other specified parts of digestive tract; Z90.79 Acquired absence of other genital organ(s); Z96.641 Presence of right artificial hip joint; Z85.07 Personal history of malignant neoplasm of pancreas

== ENCOUNTER → 2017-11-02 | Outpatient (CLI) | payer BC ==
[~2017-11-02] MED LIST changes: +ABRI INJ; +ALLO100T PO; +CHOL4POW11 PO; -DIPH25CA65 PO; +GEMC1INJ IV; +HYDR-5688 PO; -LACTATED RINGER'S 1000ML 1,000 ML IV SCH; -LISI-461 PO; +ONDA4TAB46 PO; +PRED-301 PO; -ZNTT/150 PO
== END | disposition home or self-care (01) ==
LOC: C.LAB 09:46
PROVIDERS: ATTEND Internal Medicine Hematology & Oncology
DX: C25.9 Malignant neoplasm of pancreas, unspecified (principal)

== ENCOUNTER 2017-12-19 06:28 | Day surgery (SDC) | payer BC ==
[2017-12-15 15:59] VITALS: Ht 177.8 cm; Wt 79.5 kg
[~2017-12-19] VITALS: Ht 177.8 cm; Wt 79.5 kg
[~2017-12-19 06:28] MED LIST changes: -ALLO300T2 PO; -ATOR-54 PO; -CHOL4POW11 PO; +CLINDAMYCIN IV 900 MG in DEXTROSE 5% 50ML IV SCH; -CLOP1TAB15 PO; -HYDR-5688 PO; +LACTATED RINGER'S 1000ML 1,000 ML IV SCH
[2017-12-19] MEDS ORDERED: LABETALOL HCL IV 5 MG/ML 20ML IV PRN (06:30)
[2017-12-19] MEDS ORDERED: PHENYLEPHRINE 100MCG/ML 5ML SYR IV PRN (06:30)
[2017-12-19] MEDS ORDERED: FENTANYL CITRATE INJ 50 MCG/1 ML 2 ML VIAL IV PRN (06:30)
[2017-12-19] MEDS ORDERED: EpHEDrine SULFATE INJ 50 MG/ML AMP IV PRN (06:30)
[2017-12-19] MEDS ORDERED: ONDANSETRON INJ 2 MG/ML 2 ML VIAL IV PRN ×2 (06:30→08:45)
[2017-12-19] MEDS ORDERED: ATROPINE SULFATE 0.1 MG/ML 5ML SYR IV PRN (06:30)
[2017-12-19 07:03] VITALS: BP 153/78; PULSE 93; TEMP 36.6; O2SAT 99
[2017-12-19] MEDS ORDERED: LIDOCAINE HCL 2% 2 ML VIAL (20MG/ML) ONE (07:29)
[2017-12-19] MEDS ORDERED: MIDAZOLAM HCL 1 MG/ML 2ML VIAL ONE (07:29)
[2017-12-19] MEDS ORDERED: PROPOFOL IV EMULSION 10 MG/ML 20 ML VIAL IV ONE ×2 (07:29→08:43)
[2017-12-19] MEDS ORDERED: THROMBIN FOR SOLN 20000 UNIT KIT ONE (07:41)
[2017-12-19] MEDS ORDERED: CEFAZOLIN SOD 1 GM VIAL ONE (07:42)
[2017-12-19] MEDS ORDERED: HEPARIN SOD (PORCINE) 1000 UNIT/ML 10 ML VIAL ONE (07:42)
[2017-12-19] MEDS ORDERED: LIDOCAINE HCL 1% 20 ML VIAL ONE (07:42)
--- NOTE | 2017-12-19 07:46 | History & Physical Bridge Note ---
H&P Re-Evaluation Bridge Note: I have examined the patient, reviewed the History & Physical and in the interval since the performance of the History & Physical I have noted the following changes of clinical significance: No changes noted
[2017-12-19] MEDS ORDERED: FENTANYL CITRATE INJ 50 MCG/1 ML 2 ML VIAL ONE (08:05)
[2017-12-19] MEDS ORDERED: HYDR-5688 PO (08:42)
--- NOTE | 2017-12-19 08:43 | Discharge Instructions ---
Discharge Instructions Date of Service Dec 19, 2017. Visit Reason for Visit: Pancreatic Cancer Discharge Discharge Diagnosis / Problem: A-port Discharge Goals Goal(s): Therapeutic intervention Activity Recommendations Activity Limitations: resume your previous activity Shower/Bathe: keep incision dry (for 2 days) Anesthesia . Post Anesthesia Instructions: If you have had General Anesthesia or IV Sedation: * Do not drive today. * Resume driving when surgeon permits. * Do not make important decisions or sign legal documents today. * Call surgeon for: 1. Temperature elevations greater than 101 degrees F. 2. Uncontrollable pain. 3. Excessive bleeding. 4. Persistent nausea and vomiting. 5. Medication intolerance (nausea, vomiting or rash). * For nausea and vomiting use only clear liquids such as: tea, soda, bouillon until nausea subsides, then gradually increase diet as tolerated. * If you have any concerns or questions, call your surgeon's office. If physician is unavailable and it is an emergency, call 911 or go to the nearest emergency room. . Instructions / Follow-Up Instructions / Follow-Up Dr. Berry in 2 weeks as planned, call [phone] for any questions OK for port to be used Diet Recommendations Recommended Home Diet: no limitations Procedures Procedures Performed: Insertion of A-Port into left cephalic vein Pending Studies Studies pending at discharge: no Medical Emergencies . Who to Call and When: Medical Emergencies: If at any time you feel your situation is an emergency, please call 911 immediately. . Non-Emergent Contact Non-Emergency issues call your: Surgeon Call Non-Emergent contact if: you have a fever, temperature is above 101.5, your pain is not controlled, wound has increased redness, you have any medication questions . . "Provider Documentation" section prepared by Justo Evans. .
--- NOTE | 2017-12-19 08:43 | [facility] Operative Report ---
Operative Report Operative Date Dec 19, 2017. Pre-Operative Diagnosis Pancreatic cancer, need for IV access Post-Operative Diagnosis Same as preop Procedure(s) Performed Insertion of A-Port into left cephalic vein Surgeon Dr. Berry Scale Agent Surgeon(s) none Estimated Blood Loss 5 cc Specimens none, as per surgeon Drains None Anesthesia Type MAC Complication(s) none Disposition Recovery Room / PACU I attest to the content of the Intraoperative Record and any orders documented therein. Any exceptions are noted below.
--- NOTE | 2017-12-19 08:43 | [facility] Operative Report ---
Operative Report Operative Date Dec 19, 2017. Pre-Operative Diagnosis Pancreatic cancer, need for IV access Post-Operative Diagnosis Same as preop Procedure(s) Performed Insertion of A-Port into left cephalic vein Surgeon Dr. Berry Manual Arts Therapist Surgeon(s) none Estimated Blood Loss 5 cc Findings placed via Lt cephalic vein Specimens none, as per surgeon Drains None Anesthesia Type MAC Complication(s) none Disposition Recovery Room / PACU I attest to the content of the Intraoperative Record and any orders documented therein. Any exceptions are noted below.
[2017-12-19] MEDS ORDERED: HYDROCODONE/ACETAMIN 5/325MG TAB PO PRN ×2 (08:45)
[2017-12-19 09:15] VITALS: BP 114/62; PULSE 70; TEMP 36.8; O2SAT 100
--- NOTE | 2017-12-19 09:20 | DIAGNOSTIC IMAGING REPORT ---
CHEST ONE VIEW PORTABLE CLINICAL HISTORY: 82 years-old Male presenting with port placement. TECHNIQUE: Portable upright AP view of the chest was obtained. COMPARISON: 03/28/2013. FINDINGS: Interval placement of a left subclavian Mediport, which terminates in the lower SVC. Atherosclerosis of aortic arch. Cardiac silhouette normal in size. No focal opacity. No large effusion or pneumothorax. Degenerative changes of the thoracic spine. Upper abdomen normal. IMPRESSION: 1. Appropriately positioned left subclavian Mediport. No pneumothorax. Electronically signed by: Jaret Garcia M.D. 12/19/2017 9:19 AM Dictated Date/Time: 12/19/2017 9:17 AM
--- NOTE | 2017-12-19 09:23 | Anesthesiology Progress Note ---
Anesthesia Post Op Note Date & Time Dec 19, 2017 at 09:23 Vital Signs Pain Intensity: 0 Vital Signs Past 12 Hours Date Time Temp Pulse Resp B/P (MAP) Pulse Ox O2 Delivery O2 Flow Rate FiO2 12/19/17 09:10 36.7 68 16 120/69 100 Room Air 12/19/17 09:00 74 16 114/68 98 Room Air 12/19/17 08:51 36.4 78 16 116/70 99 Room Air 12/19/17 07:03 36.6 93 18 153/78 (103) 99 Room Air Notes Mental Status: alert / awake / arousable, participated in evaluation Pt Amnestic to Procedure: Yes Nausea / Vomiting: adequately controlled Pain: adequately controlled Airway Patency, RR, SpO2: stable & adequate BP & HR: stable & adequate Hydration State: stable & adequate Anesthetic Complications: no major complications apparent
--- NOTE | 2017-12-19 09:25 | OPERATIVE REPORT ---
DATE OF OPERATION: 12/19/2017 NAME OF OPERATION: Access port placement. PREOPERATIVE DIAGNOSIS: Pancreatic cancer. POSTOPERATIVE DIAGNOSIS: Same. STAFF SURGEON: Jean Paul Berry MD. ANESTHESIA: 1% plain lidocaine with sedation. DESCRIPTION OF THE PROCEDURE: The patient was brought in the operating room and placed on the operating table in supine position. His chest was prepped and draped in usual fashion. Skin and subcutaneous tissue over the left deltopectoral groove were anesthetized. Incision made carrying dissection down identifying the cephalic vein in the left side. The vein was ligated distally using 2-0 silk suture then opened. Under fluoroscopy, a catheter was passed into the superior vena cava. It was aspirated and flushed with heparinized solution. A pocket was fashioned in the chest wall. The port was attached to the catheter, placed into the pocket and secured to the chest wall using 3-0 Prolene suture. Port was aspirated and flushed with heparinized solution. At this point, the wound was irrigated. Then the subcutaneous tissue reapproximated using 2-0 chromic suture and the skin reapproximated using 4-0 nylon suture. Dressing applied and patient transferred to recovery room in stable condition. I attest to the content of the Intraoperative Record and any orders documented therein. Any exception s are noted below.
[2017-12-19 09:45] VITALS: BP 127/65; PULSE 72; TEMP 36.5; O2SAT 99
== END 2017-12-19 10:10 | disposition home or self-care (01) ==
LOC: C.ACU 06:28
PROVIDERS: ATTEND Surgery
DX: C25.9 Malignant neoplasm of pancreas, unspecified (principal); E78.5 Hyperlipidemia, unspecified; Z88.0 Allergy status to penicillin; Z88.1 Allergy status to other antibiotic agents; Z79.82 Long term (current) use of aspirin; Z90.49 Acquired absence of other specified parts of digestive tract; Z85.46 Personal history of malignant neoplasm of prostate; Z90.79 Acquired absence of other genital organ(s); Z85.828 Personal history of other malignant neoplasm of skin; Z96.649 Presence of unspecified artificial hip joint; Z82.49 Family history of ischemic heart disease and other diseases of the circulatory system; Z82.5 Family history of asthma and other chronic lower respiratory diseases

== ENCOUNTER → 2018-01-12 | Outpatient (CLI) | payer BC ==
[~2018-01-12] MED LIST changes: -CLINDAMYCIN IV 900 MG in DEXTROSE 5% 50ML IV SCH; +HYDR-5688 PO; -LACTATED RINGER'S 1000ML 1,000 ML IV SCH
== END | disposition home or self-care (01) ==
LOC: C.PATHSPEC 16:18
PROVIDERS: ATTEND Urology
DX: C61 Malignant neoplasm of prostate (principal); N30.40 Irradiation cystitis without hematuria; N20.0 Calculus of kidney

== ENCOUNTER → 2018-01-24 | Outpatient (CLI) | payer BC ==
--- NOTE | 2018-01-24 10:24 | DIAGNOSTIC IMAGING REPORT ---
KUB HISTORY: N20.0 [id number] COMPARISON: [facility]UB 05/20/2017. FINDINGS: The bowel gas pattern is unremarkable. There are no dilated loops of small bowel to suggest an obstruction. Common bile duct stent appears be in good position. There are surgical clips within the right upper quadrant. Multiple bilateral renal calculi are again noted. Dominant stone within the lower pole of the left kidney measures 11 mm. Dominant right renal calculus measures 13 mm. No ureteral calculi identified. Stable calcifications within the pelvis likely represent phlebolith. Surgical within the deep pelvis. Right hip prosthesis. No pneumoperitoneum or pneumatosis. IMPRESSION: 1. Bilateral nephrolithiasis is again noted. 2. No ureteral calculi identified. Electronically signed by: Jose Angel Simmons M.D. 01/24/2018 10:22 AM Dictated Date/Time: 01/24/2018 10:21 AM
== END | disposition home or self-care (01) ==
LOC: C.RAD 10:00
PROVIDERS: ATTEND Urology
DX: N20.0 Calculus of kidney (principal)

== ENCOUNTER → 2018-02-02 | Outpatient (CLI) | payer BC ==
[2018-02-02 14:43] LABS: BASO % 0.5 %; BASO ABS # 0.04 K/uL (0-0.2); EOS % 0.5 %; EOS ABS # 0.04 K/uL (0-0.5); HEMATOCRIT 33.2 % (42-52); HEMOGLOBIN 10.6 g/dL (14.0-18.0); IG# 0.04 K/uL (0.00-0.02); LYMPH % 11.3 %; LYMPH ABS # 0.86 K/uL (1.2-3.4); MEAN CELL VOLUME 93.3 fL (80-100); MEAN CORPUSCULAR HEMOGLOBIN 29.8 pg (25-34); MEAN CORPUSCULAR HGB CONC 31.9 g/dl (32-36); MONO % 2.8 %; MONO ABS # 0.21 K/uL (0.11-0.59); NEUT % 84.4 %; NEUT ABS # 6.41 K/uL (1.4-6.5); PLATELET COUNT 175 K/uL (130-400); RED CELL DISTRIBUTION WIDTH CV 17.4 % (11.5-14.5); RED CELL DISTRIBUTION WIDTH SD 59.1 fL (36.4-46.3)
[2018-02-02 15:04] LABS: ALBUMIN 3.4 gm/dl (3.4-5.0); ALKALINE PHOSPHATASE 64 U/L (45-117); ALT/SGPT 28 U/L (12-78); AST/SGOT 24 U/L (15-37); BLOOD UREA NITROGEN 18 mg/dl (7-18); CALCIUM 9.1 mg/dl (8.5-10.1); CARBON DIOXIDE 29 mmol/L (21-32); CREATININE 0.99 mg/dl (0.60-1.40); GLUCOSE 195 mg/dl (70-99); POTASSIUM 4.2 mmol/L (3.5-5.1); SODIUM 139 mmol/L (136-145); TOTAL PROTEIN 6.7 gm/dl (6.4-8.2)
== END | disposition home or self-care (01) ==
LOC: C.LABCP 14:19
PROVIDERS: ATTEND Internal Medicine Hematology & Oncology
DX: C25.9 Malignant neoplasm of pancreas, unspecified (principal)

== ENCOUNTER 2019-03-28 21:38 | Inpatient (IN) ==
[2019-03-28] MEDS ORDERED: SODIUM CHLORIDE 0.9% 1000ML 1,000 ML IV ONE (22:10)
[2019-03-28] MEDS ORDERED: ACETAMINOPHEN 500 MG TAB PO STA (22:10)
--- NOTE | 2019-03-28 22:35 | XRay Report ---
XR chest 1V portable CLINICAL HISTORY: 83 years-old Male presenting with Sepsis. TECHNIQUE: Portable upright AP view of the chest was obtained. COMPARISON: 12/19/2017. FINDINGS: Left subclavian Mediport terminates at the superior cavoatrial junction. Atherosclerosis of the aorti c arch. Cardiac silhouette normal in size. Mildly low lung volumes. No focal opacity. No large effusi on or pneumothorax. Degenerative changes of the thoracic spine. Cholecystectomy clips noted. IMPRESSION: 1. No acute cardiopulmonary disease. Electronically signed by: Jaret Garcia M.D. 03/28/2019 10:33 PM
--- NOTE | 2019-03-28 23:00 | Emergency Department Note ---
Entered by Emilia Sellers acting as a scribe for Gil Wu DO History of Present Illness General Chief complaint: Dehydration Stated complaint: DEHYDRATED, CHEMO PT Time Seen by Provider: 03/28/19 22:01 Source: patient History of Present Illness Provider complaint: fatigue Onset (ago): day(s) (several days) Location: head Pain Consistency: + constant Associated symptoms: + cough, + fever/chills (+fever) and + other (+abdominal pain, +back pain, -diarrhea, -rectal bleeding); no chest pain, no nausea/vomitin g, no rash and no shortness of breath The patient is a 83 year old male who presents to the Emergency Room with complaints of constant fatigue in the past several days. He reports that he has abdominal pain, back pain, fever, and cough. He denies any nausea, vomiting, chest pain, shortness of breath, diarrhea, rash, or rectal bleeding. The patient states that he has pancreatic cancer and he had a chemotherapy treatment yesterday. The patients daughter states that he has not been thinking and speaking normally today. The patient denies any tobacco use. Home Medications Home Medications Medication Instructions Recorded Confirmed Type acetaminophen 325 mg PO Q4H PRN 03/29/19 03/29/19 History allopurinol 100 mg PO DAILY 03/29/19 03/29/19 History aspirin 81 mg PO DAILY 03/29/19 03/29/19 History atorvastatin 10 mg PO DAILY 03/29/19 03/29/19 History calcium carbonate-vit D3-min 1 tab PO DAILY 03/29/19 03/29/19 History cetirizine [Zyrtec] 10 mg PO DAILY PRN 03/29/19 03/29/19 History cholecalciferol (vitamin D3) 0 unit PO DAILY 03/29/19 03/29/19 History [Vitamin D3] insulin glargine [Lantus U-100 10 unit SUBCUT HS 03/29/19 03/29/19 History Insulin] insulin lispro [Humalog KwikPen 5 unit SUBCUT AC 03/29/19 03/29/19 History Insulin] ketoconazole 2 % TOPICAL DIRECTED 03/29/19 03/29/19 History metformin 1,000 mg PO BID 03/29/19 03/29/19 History metoprolol succinate 25 mg PO DAILY 03/29/19 03/29/19 History nitroglycerin 0.4 mg SUBLINGUAL DIRECTED 03/29/19 03/29/19 History ondansetron HCl [Zofran] 8 mg PO Q8H PRN 03/29/19 03/29/19 History prednisone 5 mg PO DAILY 03/29/19 03/29/19 History sennosides [senna] 8.6 mg PO HS PRN 03/29/19 03/29/19 History Allergies Allergy/AdvReac Type Severity Reaction Status Date / Time amoxicillin Allergy Intermediate ITCHINESS,R Verified 03/29/19 00:08 JORGE L Penicillins Allergy Intermediate ITCHINESS, Verified 03/29/19 00:08 rash Past Med/Surg History Medical History Pancreatic cancer (Chronic) Social History Feels Safe at Home: Yes Smoking Status: Never smoker Review of Systems See HPI for pertinent positives & negatives. and A total of 10 systems reviewed and were otherwise negative Physical Exam Vital Signs Vital Signs - 24 hr 03/28/19 21:44 03/28/19 23:28 03/29/19 00:20 Temperature 38.7 C H Temperature Source Oral Sepsis Recent Fever Within 48 Hours Yes Sepsis Action Taken by Nursing No Action Required Pulse Rate 84 Pulse Rate [Finger] 72 70 Respiratory Rate 18 18 18 Respiratory Effort / Characteristics Non-Labored Spontaneous Respiratory Depth Normal Respiratory Pattern Regular Blood Pressure 91/60 L Blood Pressure [Right Arm] 100/51 L 127/60 Blood Pressure Mean 70 Blood Pressure Mean [Right Arm] 67 82 Blood Pressure Position Sitting Pulse Oximetry 94 93 94 Oxygen Delivery Method Room Air Room Air Room Air GENERAL: Patient is awake alert in no acute distress patient is resting comfortably and showing no signs of anxiety EYES: The conjunctivae are clear. The pupils are round and reactive. EARS, NOSE, MOUTH AND THROAT: The nose is without any evidence of any deformity. Mucous membranes are moist tongue is midline NECK: The neck is nontender and supple. RESPIRATORY: Normal respiratory effort is noted there is no evidence of wheezing rhonchi or rales CARDIOVASCULAR: Regular rate and rhythm noted there no murmurs rubs or gallops normal S1 normal S2 GASTROINTESTINAL: The abdomen is mildly distended but soft. There is no guarding noted. There is diffuse tenderness noted. MUSCULOSKELETAL/EXTREMITIES: There is no evidence of gross deformity full range of motion is noted in the hips and shoulders SKIN: There is no obvious evidence of any rash. Trace pedal edema was noted bilaterally. NEUROLOGIC: Patient is awake alert and oriented to person place and situation. He is slow to answer questions but appears appropriate. Course 2208: The patient was evaluated in room C5, and a complete history and physical examination were performed. 0053: I reevaluated the patient and updated him on his results, he is resting comfortably. 0115: I reevaluated the patient and updated the patient's daughter on his results. 0201: I reviewed the patient's case with Dr. Kennedy [facility] Hospitalist. He will evaluate the patient for further management. Consultations Consultation #1: Dr. Kennedy [facility] Hospitalist Time: 02:01 Administered Medications Ioversol (Optiray 320 100ml) 100 ml IV ONCE PRN PRN Reason: Interaction Checking Stop: 04/02/19 00:14 Last Admin: 03/29/19 00:15 Dose: 92 ml Documented by: [id number] Discontinued Medications Acetaminophen (Tylenol) 1,000 mg PO NOW STA Stop: 03/28/19 22:11 Last Admin: 03/28/19 22:25 Dose: 1,000 mg Documented by: [id number] Sodium Chloride (Nss 1000ml) 1,000 mls @ 999 mls/hr IV .Q1H1M ONE Stop: 03/28/19 23:10 Last Infusion: 03/29/19 00:30 Dose: 0 mls/hr Documented by: [id number] Admin: 03/28/19 23:27 Dose: 999 mls/hr Documented by: [id number] Magnesium Sulfate/Dextrose (Magnesium Sulfate / D5w) 1 gm in 100 mls @ 100 mls/hr IV Q1H SHIRA Stop: 03/29/19 01:44 Last Admin: 03/29/19 01:24 Dose: 100 mls/hr Documented by: [id number] Infusion: 03/29/19 01:24 Dose: 0 mls/hr Documented by: [id number] Admin: 03/29/19 00:20 Dose: 100 mls/hr Documented by: [id number] Medical Decision Making Differential Diagnosis Differential diagnosis: Etiologies such as metabolic, infection, hypo/hyperglycemia, electrolyte abnormalities, cardiac sources, intracerebral event, toxicologic, neurologic, as well as others were entertained. Medical Records Attestation: I reviewed the patient's medical records. Home Medications Current Medication List: was personally reviewed by me Laboratory Data Attestation: I reviewed the patient's lab results. Result diagrams: 03/28/19 22:59 03/28/19 22:59 Lab Results 03/28/19 03/28/19 03/28/19 Range/Units 22:59 22:59 22:59 WBC 7.79 (4.8-10.8) K/uL RBC 3.25 L (4.7-6.1) M/uL Hgb 10.0 L (14.0-18.0) g/dL POC Hgb (14.0-18.0) g/dl Hct 30.9 L (42-52) % POC Hct (42-52) % MCV 95.1 (80-100) fL MCH 30.8 (25-34) pg MCHC 32.4 (32-36) g/dL RDW Std Deviation 65.4 H (36.4-46.3) fL RDW Coeff of Lefty 19.1 H (11.5-14.5) % Plt Count 74 L (130-400) K/uL MPV 10.7 H (7.4-10.4) fL Immature Gran % (Auto) 0.1 % Neut % (Auto) 87.8 % Lymph % (Auto) 3.2 % [place] % (Auto) 8.9 % Eos % (Auto) 0.0 % Baso % (Auto) 0.0 % Immature Gran # (Auto) 0.01 (0.00-0.02) K/uL Neut # (Auto) 6.84 H (1.4-6.5) K/uL Lymph # (Auto) 0.25 L (1.2-3.4) K/uL [place] # (Auto) 0.69 H (0.11-0.59) K/uL Eos # (Auto) 0.00 (0-0.5) K/uL Baso # (Auto) 0.00 (0-0.2) K/uL Tear Drop Cells 1+ Ovalocytes 1+ ESR 6 (0-14) mm/hr PT 12.8 H (9.0-12.0) Seconds INR 1.3 H (0.9-1.1) APTT 30.2 (21.0-31.0) Seconds PTT Ratio 1.1 POC Sodium (135-144) mEq/L Sodium (136-145) mmol/L POC Potassium (3.3-5.0) mEq/L Potassium (3.5-5.1) mmol/L POC Chloride (101-112) mEq/L Chloride (98-107) mmol/L Carbon Dioxide (21-32) mmol/L POC Total CO2 (24-31) mEq/l Anion Gap (3-11) POC Anion Gap (16-25) mmol/L POC BUN (7-18) mg/dl BUN (7-18) mg/dl Creatinine (0.6-1.4) mg/dl POC Creatinine (0.6-1.3) mg/dl Est Cr Clr Drug Dosing ml/min Est GFR ( Amer) Est GFR (Non-Af Amer) BUN/Creatinine Ratio (10-20) Glucose (70-99) mg/dl POC Glucose (other) (70-99) mg/dl Lactate (0.4-2.0) mmol/L Calcium (8.5-10.1) mg/dl POC Ioniz Calcium [place] (1.12-1.32) mmol/l Magnesium (1.8-2.4) mg/dl Total Bilirubin (0.2-1) mg/dl AST (15-37) U/L ALT (12-78) U/L Alkaline Phosphatase (45-117) U/L Troponin I (0-0.045) ng/ml C-Reactive Protein (0-0.29) mg/dl Total Protein (6.4-8.2) gm/dl Albumin (3.4-5.0) gm/dl Globulin (2.5-4.0) gm/dl Albumin/Globulin Ratio (0.9-2) Procalcitonin (0-0.5) ng/ml Urine Color Urine Appearance (Clear) Urine pH (4.5-7.5) Ur Specific Devens (1.000-1.030) Urine Protein (Negative) Urine Glucose (UA) (Negative) Urine Ketones (Negative) Urine Blood (Negative) Urine Nitrite (Negative) Urine Bilirubin (Negative) Urine Urobilinogen (Negative) Ur Leukocyte Esterase (Negative) 03/28/19 03/28/19 03/28/19 Range/Units 22:59 22:59 22:59 WBC (4.8-10.8) K/uL RBC (4.7-6.1) M/uL Hgb (14.0-18.0) g/dL POC Hgb (14.0-18.0) g/dl Hct (42-52) % POC Hct (42-52) % MCV (80-100) fL MCH (25-34) pg MCHC (32-36) g/dL RDW Std Deviation (36.4-46.3) fL RDW Coeff of Lefty (11.5-14.5) % Plt Count (130-400) K/uL MPV (7.4-10.4) fL Immature Gran % (Auto) % Neut % (Auto) % Lymph % (Auto) % [place] % (Auto) % Eos % (Auto) % Baso % (Auto) % Immature Gran # (Auto) (0.00-0.02) K/uL Neut # (Auto) (1.4-6.5) K/uL Lymph # (Auto) (1.2-3.4) K/uL [place]y # (Auto) (0.11-0.59) K/uL Eos # (Auto) (0-0.5) K/uL Baso # (Auto) (0-0.2) K/uL Tear Drop Cells Ovalocytes ESR (0-14) mm/hr PT (9.0-12.0) Seconds INR (0.9-1.1) APTT (21.0-31.0) Seconds PTT Ratio POC Sodium (135-144) mEq/L Sodium 138 (136-145) mmol/L POC Potassium (3.3-5.0) mEq/L Potassium 4.4 (3.5-5.1) mmol/L POC Chloride (101-112) mEq/L Chloride 105 (98-107) mmol/L Carbon Dioxide 25 (21-32) mmol/L POC Total CO2 (24-31) mEq/l Anion Gap 7.0 (3-11) POC Anion Gap (16-25) mmol/L POC BUN (7-18) mg/dl BUN 25 H D (7-18) mg/dl Creatinine 1.22 D (0.6-1.4) mg/dl POC Creatinine (0.6-1.3) mg/dl Est Cr Clr Drug Dosing 49.0 ml/min Est GFR ( Amer) 64.0 Est GFR (Non-Af Amer) 55.3 BUN/Creatinine Ratio 20.8 H (10-20) Glucose 155 H (70-99) mg/dl POC Glucose (other) (70-99) mg/dl Lactate 1.3 (0.4-2.0) mmol/L Calcium 9.1 (8.5-10.1) mg/dl POC Ioniz Calcium [place] (1.12-1.32) mmol/l Magnesium 1.6 L (1.8-2.4) mg/dl Total Bilirubin 2.0 H D (0.2-1) mg/dl AST 36 (15-37) U/L ALT 37 (12-78) U/L Alkaline Phosphatase 63 (45-117) U/L Troponin I < 0.015 (0-0.045) ng/ml C-Reactive Protein 6.44 H (0-0.29) mg/dl Total Protein 5.9 L (6.4-8.2) gm/dl Albumin 3.0 L (3.4-5.0) gm/dl Globulin 2.9 (2.5-4.0) gm/dl Albumin/Globulin Ratio 1.0 (0.9-2) Procalcitonin 0.44 (0-0.5) ng/ml Urine Color Urine Appearance (Clear) Urine pH (4.5-7.5) Ur Specific Devens (1.000-1.030) Urine Protein (Negative) Urine Glucose (UA) (Negative) Urine Ketones (Negative) Urine Blood (Negative) Urine Nitrite (Negative) Urine Bilirubin (Negative) Urine Urobilinogen (Negative) Ur Leukocyte Esterase (Negative) 03/28/19 03/29/19 Range/Units 23:37 Unknown WBC (4.8-10.8) K/uL RBC (4.7-6.1) M/uL Hgb (14.0-18.0) g/dL POC Hgb 10.2 L (14.0-18.0) g/dl Hct (42-52) % POC Hct 30 L (42-52) % MCV (80-100) fL MCH (25-34) pg MCHC (32-36) g/dL RDW Std Deviation (36.4-46.3) fL RDW Coeff of Lefty (11.5-14.5) % Plt Count (130-400) K/uL MPV (7.4-10.4) fL Immature Gran % (Auto) % Neut % (Auto) % Lymph % (Auto) % [place] % (Auto) % Eos % (Auto) % Baso % (Auto) % Immature Gran # (Auto) (0.00-0.02) K/uL Neut # (Auto) (1.4-6.5) K/uL Lymph # (Auto) (1.2-3.4) K/uL [place] # (Auto) (0.11-0.59) K/uL Eos # (Auto) (0-0.5) K/uL Baso # (Auto) (0-0.2) K/uL Tear Drop Cells Ovalocytes ESR (0-14) mm/hr PT (9.0-12.0) Seconds INR (0.9-1.1) APTT (21.0-31.0) Seconds PTT Ratio POC Sodium 137 (135-144) mEq/L Sodium (136-145) mmol/L POC Potassium 4.3 (3.3-5.0) mEq/L Potassium (3.5-5.1) mmol/L POC Chloride 101 (101-112) mEq/L Chloride (98-107) mmol/L Carbon Dioxide (21-32) mmol/L POC Total CO2 22 L (24-31) mEq/l Anion Gap (3-11) POC Anion Gap 20.0 (16-25) mmol/L POC BUN 24 H (7-18) mg/dl BUN (7-18) mg/dl Creatinine (0.6-1.4) mg/dl POC Creatinine 1.3 (0.6-1.3) mg/dl Est Cr Clr Drug Dosing ml/min Est GFR ( Amer) Est GFR (Non-Af Amer) BUN/Creatinine Ratio (10-20) Glucose (70-99) mg/dl POC Glucose (other) 160 H (70-99) mg/dl Lactate (0.4-2.0) mmol/L Calcium (8.5-10.1) mg/dl POC Ioniz Calcium [place] 1.18 (1.12-1.32) mmol/l Magnesium (1.8-2.4) mg/dl Total Bilirubin (0.2-1) mg/dl AST (15-37) U/L ALT (12-78) U/L Alkaline Phosphatase (45-117) U/L Troponin I (0-0.045) ng/ml C-Reactive Protein (0-0.29) mg/dl Total Protein (6.4-8.2) gm/dl Albumin (3.4-5.0) gm/dl Globulin (2.5-4.0) gm/dl Albumin/Globulin Ratio (0.9-2) Procalcitonin (0-0.5) ng/ml Urine Color Dark Yellow Urine Appearance Clear (Clear) Urine pH 5.0 (4.5-7.5) Ur Specific Devens > 1.045 H (1.000-1.030) Urine Protein Negative (Negative) Urine Glucose (UA) Negative (Negative) Urine Ketones Trace H (Negative) Urine Blood Negative (Negative) Urine Nitrite Negative (Negative) Urine Bilirubin Negative (Negative) Urine Urobilinogen Negative (Negative) Ur Leukocyte Esterase Negative (Negative) Imaging Data Radiologist's Impression: CT the abdomen and pelvis was obtained in the emergency department. The stat read report is reviewed. Preliminary Findings Only See Final Report For Complete Findings CT ABDOMEN & PELVIS With Contrast: There is scarring/atelectasis in the right middle lobe and posterior lower lobes. Cholecystectomy. Metallic common bile duct stent in place. Mild intrahepatic biliary dilatation and pneumobilia. Subcentimeter hypodensity near the liver dome, too small to characterize. Bulky appearance of the pancreatic head without discrete mass visualized. Atrophy of the pancreatic body and tail with pancreatic duct dilatation. Lymphadenopathy about the pancreatic head. Spleen and adrenal glands are unremarkable. Bilateral nonobstructing kidney stones. Left kidney cyst. No hydronephrosis. Normal appendix. No obstructive or inflammatory changes of the bowel. Urinary bladder is unremarkable. Query prior prostatectomy. Mild pelvic ascites. Right total hip arthroplasty. No acute osseous findings. Radiologist: Judy Joseph M.D. Study ready at 00:16 and initial results transmitted at 00:41 CT the head was obtained in the emergency department. The stat read report was reviewed. Preliminary Findings Only See Final Report For Complete Findings CT HEAD: Comparison: CT head 11/06/13. No ICH, mass effect, or edema. No skull fracture. Sinuses and mastoid air cells are clear. Radiologist: Judy Joseph M.D. Study ready at 00:04 and initial results transmitted at 00:41 XR chest 1V portable CLINICAL HISTORY: 83 years-old Male presenting with Sepsis. TECHNIQUE: Portable upright AP view of the chest was obtained. COMPARISON: 12/19/2017. FINDINGS: Left subclavian Mediport terminates at the superior cavoatrial junction. Atherosclerosis of the aortic arch. Cardiac silhouette normal in size. Mildly low lung volumes. No focal opacity. No large effusion or pneumothorax. Degenerative changes of the thoracic spine. Cholecystectomy clips noted. IMPRESSION: 1. No acute cardiopulmonary disease. Electronically signed by: Jaret Garcia M.D. 03/28/2019 10:33 PM ECG Data Attestation: I personally reviewed and interpreted this ECG as follows: Indication: weakness Rate (beats per minute): 78 Rhythm: normal sinus Findings: + other (no acute ST segments); no ectopy Comparison ECG Date: from (09/23/17) Change: no significant change Blood Pressure Blood Pressure Findings: Normal blood pressure Blood Pressure Disposition: did not require urgent referral MDM Narrative The patient is an 83-year-old male who presented to the emergency department with family members for an evaluation. The patient was in the bathroom when he had an episode that was not witnessed. It is unclear if the patient fell or had a syncopal episode. He came to the emergency department he was found to have a fever as well as hypotension. He was treated with IV fluids. The patient has a history of pancreatic cancer and was recently treated with chemotherapy. The patient did not know that he had a fever until he presented to the emergency department. He was also having episodes of confusion according to his family members. I discussed the patient's laboratory and radiographic studies with him and his family members. I also discussed his case with the on-call [facility] hospitalist group. The patient was started on IV antibiotics for empiric treatment. CAT scan of the brain did not show any acute disease. The patient was reevaluated multiple times. Impression & Plan Fever, Altered mental status, Thrombocytopenia, Hypomagnesemia The scribe's documentation has been prepared under my direction and personally r eviewed by me in its entirety. I confirm that the note above accurately reflects all work, treatment, procedures, and medical decision making performed by me.
[2019-03-28 23:27] LABS: Hematocrit (blood only) 30.9 % (42-52); Mean Corpuscular Hgb Conc 32.4 g/dL (32-36); Mean Corpuscular Volume 95.1 fL (80-100); RDW Coefficient of Variation 19.1 % (11.5-14.5); RDW Standard Deviation 65.4 fL (36.4-46.3); Red Blood Count 3.25 M/uL (4.7-6.1); White Blood Count 7.79 K/uL (4.8-10.8)
[2019-03-28 23:43] LABS: INR 1.3 (0.9-1.1); Mean Platelet Volume 10.7 fL (7.4-10.4); Partial Thromboplastin Ratio 1.1; Partial Thromboplastin Time 30.2 Seconds (21.0-31.0); Platelet Count 74 K/uL (130-400); Prothrombin Time 12.8 Seconds (9.0-12.0)
[2019-03-28 23:45] LABS: Alanine Aminotransferase 37 U/L (12-78); Aspartate Aminotransferase 36 U/L (15-37); BUN Creatinine Ratio 20.8 (10-20); Blood Urea Nitrogen 25 mg/dl (7-18); C Reactive Protein 6.44 mg/dl (0-0.29); Calcium 9.1 mg/dl (8.5-10.1); Carbon Dioxide 25 mmol/L (21-32); Chloride 105 mmol/L (98-107); Est GFR (Non-African American) 55.3; Glucose 155 mg/dl (70-99); Magnesium 1.6 mg/dl (1.8-2.4); Potassium 4.4 mmol/L (3.5-5.1); Sodium 138 mmol/L (136-145)
[2019-03-28 23:48] LABS: iSTAT Creatinine 1.3 mg/dl (0.6-1.3); iSTAT Hemoglobin 10.2 g/dl (14.0-18.0); iSTAT Ionized Calcium 1.18 mmol/l (1.12-1.32); iSTAT Potassium 4.3 mEq/L (3.3-5.0)
[2019-03-28 23:53] LABS: Immature Granulocytes # (auto) 0.01 K/uL (0.00-0.02); Immature Granulocytes % (auto) 0.1 %; Lymphocytes # (auto) 0.25 K/uL (1.2-3.4); Lymphocytes % (auto) 3.2 %; Monocytes # (auto) 0.69 K/uL (0.11-0.59); Monocytes % (auto) 8.9 %; Neutrophils # (auto) 6.84 K/uL (1.4-6.5); Neutrophils % (auto) 87.8 %; Ovalocytes 1+; Tear Drop Cells 1+
[2019-03-28 23:55] LABS: Alkaline Phosphatase 63 U/L (45-117); Globulin 2.9 gm/dl (2.5-4.0); Total Protein 5.9 gm/dl (6.4-8.2); Troponin I < 0.015 ng/ml (0-0.045)
[2019-03-29] MEDS ORDERED: IOVERSOL 100ml IV PRN (00:15)
[2019-03-29] MEDS: MAGNESIUM SULFATE / D5W 1 GM/100 ML BAG IV SCH ×2 (00:20→01:24)
[2019-03-29 01:44] LABS: Appearance Urine Clear (Clear); Bilirubin Urine Negative (Negative); Blood Urine Negative (Negative); Color Urine Dark Yellow; Glucose Urine UA Negative (Negative); Ketones Urine Trace (Negative); Leukocyte Esterase Urine Negative (Negative); Nitrite Urine Negative (Negative); Protein Urine Negative (Negative); Specific Gravity Urine > 1.045 (1.000-1.030); Urobilinogen Urine Negative (Negative)
[2019-03-29] MEDS ORDERED: VANCOMYCIN CONSULT ACTIVE PRN ×2 (02:00→03:47)
[2019-03-29] MEDS ORDERED: CEFEPIME 2,000 MG/20 ML VIAL IV STA (02:00)
[2019-03-29] MEDS ORDERED: VANCOMYCIN HCL 1,750 MG in SODIUM CHLORIDE 0.9% 500 ML IV ONE (02:00)
[2019-03-29] MEDS ORDERED: NITROGLYCERIN SL 0.4 MG/TAB TAB SL PRN (03:47)
[2019-03-29] MEDS ORDERED: ACETAMINOPHEN 325 MG TAB PO PRN (03:47)
[2019-03-29] MEDS ORDERED: CARBOHYDRATES FOR HYPOGLYCEMIA PO PRN (03:47)
[2019-03-29] MEDS ORDERED: VANCOMYCIN HCL 1,000 MG in SODIUM CHLORIDE 0.9% 250 ML IV SCH (03:47)
[2019-03-29] MEDS ORDERED: GLUCAGON FOR INJ 1 MG VIAL SQ PRN (03:47)
[2019-03-29] MEDS ORDERED: DEXTROSE 50% 50 ML SYRINGE IV PRN (03:47)
[2019-03-29] MEDS ORDERED: MAGNESIUM HYDROXIDE SUSP 30 ML UDC PO PRN (03:47)
[2019-03-29] MEDS ORDERED: ALUMINUM/MAGNESIUM SUSP 30 ML UDC PO PRN (03:47)
[2019-03-29] MEDS ORDERED: GLUCOSE 40% GEL 15 GM TUBE PO PRN (03:47)
[2019-03-29] MEDS ORDERED: HYDROCORTISONE SOD SUCCINATE 100 MG/2 ML VIAL IV SCH (03:47)
[2019-03-29] MEDS ORDERED: GLUCOSE 10 TABS/TUBE PO PRN (03:47)
[2019-03-29] MEDS: HYDROCORTISONE SOD 100 MG in SYRINGE 0 ML IV SCH ×3 (04:29→21:04)
[2019-03-29] MEDS: HEPARIN 100 UNIT/ML 5ML FLUSH IV PRN ×2 (05:45→09:48)
--- NOTE | 2019-03-29 06:22 | History & Physical Report ---
Date of Service March 29, 2019 Assessment & Plan (1) Altered mental status: Altered mental status/acute febrile illness/undergoing chemotherapy for metastatic pancreatic cancer- Continue empiric treatment with vancomycin IV and Zosyn IV begun in the ED. Patient has no overt symptoms at this point. Follow port cultures, peripheral cultures and urine cultures. Placed on stress dose hydrocortisone 100 mg IV every [address] Jo from oncology. Consult Dr. Romero from infectious disease. Present on Admission?: Yes (2) Acute febrile illness: See above Present on Admission?: Yes (3) Pancreatic cancer: See above Present on Admission?: Yes (4) Diabetes mellitus: Hold Lantus insulin 10 units subcu at bedtime, and current standing order of Humalog 5 units subcu with meals. Placed on Accu-Cheks before meals and at bedtime with NovoLog coverage per scale. Present on Admission?: Yes (5) Hypertension: Patient was mildly hypotensive with blood pressure 91/60 upon arrival. Significant improvement to normal range with hydration. Will continue metoprolol succinate with hold parameters. Present on Admission?: Yes (6) Hyperlipidemia: Continue atorvastatin 10 mg daily. Present on Admission?: Yes (7) Chronic anemia: Hemoglobin 10.0 on admission laboratories. Range has been 10.0-11.1. Follow serially Present on Admission?: Yes (8) Hypomagnesemia: Magnesium level 1.6 on ED laboratories. Received IV replacement Follow serially Present on Admission?: Yes (9) Thrombocytopenia: Platelets upon admission was 74, likely associated with chemotherapy. Follow serially Present on Admission?: Yes (10) Gout: Continue allopurinol Present on Admission?: Yes History of Present Illness Chief Complaint: The patient presents to the emergency department due to family noticing him becoming more disoriented, and not acting himself. Primary Care Provider: Gil Ambrose MD The patient is a 83-year-old male who presents to the emergency department along with his family, who have noted him to be more confused and not acting himself over the past few days. He presently is being treated for metastatic pancreatic cancer, with his last chemo treatment yesterday. The patient himself has no complaints at this time, and the family notes that he appears to have improved somewhat after being given some IV fluids while in the ED. He was not ed to have a temperature of 101.7 F upon arrival in the ED. The family does note that the patient's memory is failing, and cannot always report when he is not feeling well. Allergies Allergy/AdvReac Type Severity Reaction Status Date / Time amoxicillin Allergy Intermediate ITCHINESS,R Verified 03/29/19 00:08 JORGE L Penicillins Allergy Intermediate ITCHINESS, Verified 03/29/19 00:08 rash Home Medications Home Medications Medication Instructions Recorded Confirmed Type acetaminophen 325 mg PO Q4H PRN 03/29/19 03/29/19 History allopurinol 100 mg PO DAILY 03/29/19 03/29/19 History aspirin 81 mg PO DAILY 03/29/19 03/29/19 History atorvastatin 10 mg PO DAILY 03/29/19 03/29/19 History calcium carbonate-vit D3-min 1 tab PO DAILY 03/29/19 03/29/19 History cetirizine [Zyrtec] 10 mg PO DAILY PRN 03/29/19 03/29/19 History cholecalciferol (vitamin D3) 0 unit PO DAILY 03/29/19 03/29/19 History [Vitamin D3] insulin glargine [Lantus U-100 10 unit SUBCUT HS 03/29/19 03/29/19 History Insulin] insulin lispro [Humalog KwikPen 5 unit SUBCUT AC 03/29/19 03/29/19 History Insulin] ketoconazole 2 % TOPICAL DIRECTED 03/29/19 03/29/19 History metformin 1,000 mg PO BID 03/29/19 03/29/19 History metoprolol succinate 25 mg PO DAILY 03/29/19 03/29/19 History nitroglycerin 0.4 mg SUBLINGUAL DIRECTED 03/29/19 03/29/19 History ondansetron HCl [Zofran] 8 mg PO Q8H PRN 03/29/19 03/29/19 History prednisone 5 mg PO DAILY 03/29/19 03/29/19 History sennosides [senna] 8.6 mg PO HS PRN 03/29/19 03/29/19 History Past Med/Surg History Medical History Pancreatic cancer (Chronic) Social History Preferred Language: Lithuanian Communication Ability: Effective Clinical Liaison Required: No Beliefs That Will Affect Care: None Current Living Situation: Family Other Information That Helps Us Care for You: Yes (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[employer], at home does not take insulin if BSG <130) Feels Safe at Home: Yes Safety Concerns: Feels Safe At This Time Smoking Status: Never smoker Do You Dip or Chew Tobacco: No Second Hand Exposure: No Hx Alcohol Use: No Hx Substance Use: No Review of Systems Review of Systems: The patient denies chest pain, palpitations, shortness of breath, dyspnea on exertion, cough, lower extremity swelling, sore throat, fevers, chills, sweats, weight change, fatigue, nausea, vomiting, diarrhea , constipation, abdominal pain, pelvic pain, blood in urine or stool, dysuria, urinary frequency or urgency, lightheadedness, dizziness, headache, loss of consciousness, rash, abnormal bruising or bleeding, imbalance, focal or generalized weakness, numbness or tingling in arms or legs, generalized arthralgias or myalgias, back or neck pain, or night sweats. The review of systems is otherwise negative other than for that already noted above, and at least 10 systems have been reviewed. Physical Exam Physical Exam: The patient is awake, alert and oriented 3, well developed and well nourished, normocephalic and atraumatic, lying in bed and in no acute distress. HEENT--PERRL, EOMI, mucous membranes and oropharynx normal. Neck--supple. No JVD. No bruits. Thyroid normal, trachea midline, no adenopathy. Heart--normal S1 and S2. No murmurs, rubs or gallops. Lungs--clear bilaterally, no respiratory distress, no accessory muscle use. Abdomen--normal bowel sounds and soft. Nontender. Nondistended, no hernias or masses, no organomegaly. Extremities--no cyanosis or clubbing. No edema. There are good distal pulses b/l. Dermatologic--normal skin turgor, normal color, no abnormal lymph nodes, no rash. Neurologic--cranial nerves II through XII grossly intact. Rheumatologic--normal range of motion. Psychiatric--normal affect. Results & Data Vital Signs (Past 12 Hours) Vital Signs Temp Pulse Pulse Resp BP BP Pulse Ox 03/29/19 03:52 97.9 F 65 18 119/68 97 07/11/19 02:11 97.9 F 65 18 138/57 L 94 03/29/19 00:20 70 18 127/60 94 03/28/19 23:28 72 18 100/51 L 93 03/28/19 21:44 101.7 F H 84 18 91/60 L 94 Laboratory Results Laboratory Results WBC 7.79 K/uL (4.8-10.8) 03/28/19 22:59 RBC 3.25 M/uL (4.7-6.1) L 03/28/19 22:59 Hgb 10.0 g/dL (14.0-18.0) L 03/28/19 22:59 POC Hgb 10.2 g/dl (14.0-18.0) L 03/28/19 23:37 Hct 30.9 % (42-52) L 03/28/19 22:59 POC Hct 30 % (42-52) L 03/28/19 23:37 MCV 95.1 fL (80-100) 03/28/19 22:59 MCH 30.8 pg (25-34) 03/28/19 22:59 MCHC 32.4 g/dL (32-36) 03/28/19 22:59 RDW Std Deviation 65.4 fL (36.4-46.3) H 03/28/19 22:59 RDW Coeff of Lefty 19.1 % (11.5-14.5) H 03/28/19 22:59 Plt Count 74 K/uL (130-400) L 03/28/19 22:59 MPV 10.7 fL (7.4-10.4) H 03/28/19 22:59 Immature Gran % (Auto) 0.1 % 03/28/19 22:59 Neut % (Auto) 87.8 % 03/28/19 22:59 Lymph % (Auto) 3.2 % 03/28/19 22:59 [place] % (Auto) 8.9 % 03/28/19 22:59 Eos % (Auto) 0.0 % 03/28/19 22:59 Baso % (Auto) 0.0 % 03/28/19 22:59 Immature Gran # (Auto) 0.01 K/uL (0.00-0.02) 03/28/19 22:59 Neut # (Auto) 6.84 K/uL (1.4-6.5) H 03/28/19 22:59 Lymph # (Auto) 0.25 K/uL (1.2-3.4) L 03/28/19 22:59 [place] # (Auto) 0.69 K/uL (0.11-0.59) H 03/28/19 22:59 Eos # (Auto) 0.00 K/uL (0-0.5) 03/28/19 22:59 Baso # (Auto) 0.00 K/uL (0-0.2) 03/28/19 22:59 Tear Drop Cells 1+ 03/28/19 22:59 Ovalocytes 1+ 03/28/19 22:59 ESR 6 mm/hr (0-14) 03/28/19 22:59 PT 12.8 Seconds (9.0-12.0) H 03/28/19 22:59 INR 1.3 (0.9-1.1) H 03/28/19 22:59 APTT 30.2 Seconds (21.0-31.0) 03/28/19 22:59 PTT Ratio 1.1 03/28/19 22:59 POC Sodium 137 mEq/L (135-144) 03/28/19 23:37 Sodium 138 mmol/L (136-145) 03/28/19 22:59 POC Potassium 4.3 mEq/L (3.3-5.0) 03/28/19 23:37 Potassium 4.4 mmol/L (3.5-5.1) 03/28/19 22:59 POC Chloride 101 mEq/L (101-112) 03/28/19 23:37 Chloride 105 mmol/L (98-107) 03/28/19 22:59 Carbon Dioxide 25 mmol/L (21-32) 03/28/19 22:59 POC Total CO2 22 mEq/l (24-31) L 03/28/19 23:37 Anion Gap 7.0 (3-11) 03/28/19 22:59 POC Anion Gap 20.0 mmol/L (16-25) 03/28/19 23:37 POC BUN 24 mg/dl (7-18) H 03/28/19 23:37 BUN 25 mg/dl (7-18) H D 03/28/19 22:59 Creatinine 1.22 mg/dl (0.6-1.4) D 03/28/19 22:59 POC Creatinine 1.3 mg/dl (0.6-1.3) 03/28/19 23:37 Est Cr Clr Drug Dosing 49.0 ml/min 03/28/19 22:59 Est GFR ( Amer) 64.0 03/28/19 22:59 Est GFR (Non-Af Amer) 55.3 03/28/19 22:59 BUN/Creatinine Ratio 20.8 (10-20) H 03/28/19 22:59 Glucose 155 mg/dl (70-99) H 03/28/19 22:59 POC Glucose (other) 160 mg/dl (70-99) H 03/28/19 23:37 Lactate 1.3 mmol/L (0.4-2.0) 03/28/19 22:59 Calcium 9.1 mg/dl (8.5-10.1) 03/28/19 22:59 POC Ioniz Calcium [place] 1.18 mmol/l (1.12-1.32) 03/28/19 23:37 Magnesium 1.6 mg/dl (1.8-2.4) L 03/28/19 22:59 Total Bilirubin 2.0 mg/dl (0.2-1) H D 03/28/19 22:59 AST 36 U/L (15-37) 03/28/19 22:59 ALT 37 U/L (12-78) 03/28/19 22:59 Alkaline Phosphatase 63 U/L (45-117) 03/28/19 22:59 Troponin I < 0.015 ng/ml (0-0.045) 03/28/19 22:59 C-Reactive Protein 6.44 mg/dl (0-0.29) H 03/28/19 22:59 Total Protein 5.9 gm/dl (6.4-8.2) L 03/28/19 22:59 Albumin 3.0 gm/dl (3.4-5.0) L 03/28/19 22:59 Globulin 2.9 gm/dl (2.5-4.0) 03/28/19 22:59 Albumin/Globulin Ratio 1.0 (0.9-2) 03/28/19 22:59 Procalcitonin 0.44 ng/ml (0-0.5) 03/28/19 22:59 Urine Color Dark Yellow 03/29/19 Unknown Urine Appearance Clear (Clear) 03/29/19 Unknown Urine pH 5.0 (4.5-7.5) 03/29/19 Unknown Ur Specific [place] > 1.045 (1.000-1.030) H 03/29/19 Unknown Urine Protein Negative (Negative) 03/29/19 Unknown Urine Glucose (UA) Negative (Negative) 03/29/19 Unknown Urine Ketones Trace (Negative) H 03/29/19 Unknown Urine Blood Negative (Negative) 03/29/19 Unknown Urine Nitrite Negative (Negative) 03/29/19 Unknown Urine Bilirubin Negative (Negative) 03/29/19 Unknown Urine Urobilinogen Negative (Negative) 03/29/19 Unknown Ur Leukocyte Esterase Negative (Negative) 03/29/19 Unknown Diagnostic Findings [place], [place] [phone] XRay Report Patient: AURELIA GOOD Date: 03/28/19 MR#: [id number] Acct ID:[id number]: Date: 1935City Zip: [place] [address] Age: 83Location: ED Sex: M Room/Bed: Att Phy: Diagnosis: DEHYDRATED, CHEMO PT Mary Ann Phy: Gil Ambrose MDService Date: 03/28/19 Fam Phy: Interpreting Phy: Jaret Garcia MD Admit Phy: Ordering Phy: Gil Wu DO cc: ~ XR chest 1V portable CLINICAL HISTORY: 83 years-old Male presenting with Sepsis. TECHNIQUE: Portable upright AP view of the chest was obtained. COMPARISON: 12/19/2017. FINDINGS: Left subclavian Mediport terminates at the superior cavoatrial junction. Atherosclerosis of the aortic arch. Cardiac silhouette normal in size. Mildly low lung volumes. No focal opacity. No large effusion or pneumothorax. Degenerative changes of the thoracic spine. Cholecystectomy clips noted. IMPRESSION: 1. No acute cardiopulmonary disease. Electronically signed by: Jaret Garcia M.D. 03/28/2019 10:33 PM Dictated: 03/28/192231 Transcribed: 03/28/192231 Code Status & VTE Plan Code Status Full code VTE Prophylaxis Plan VTE Prophylaxis will be ordered: Yes PG Care Time/CCT Total # of Minutes Spent Total Time Spent with Patient: Total time spent is greater than 50% in coordination of care (as documented) at patient's floor/unit and/or counseling patient: (1) Altered mental status Altered mental status type: unspecified Qualified Code(s): R41.82 - Altered mental status, unspecified
--- NOTE | 2019-03-29 06:34 | CT Scan Report ---
CT head/brain wo con CLINICAL HISTORY: 83 years-old Male with confused. Acutely altered mental status TECHNIQUE: Multiple axial CT images of the head were obtained without contrast. A dose lowering tech nique was utilized adhering to the principles of ALARA. CT DOSE: 537.48 mGy.cm COMPARISON: CT head 11/06/2013. FINDINGS: No acute intracranial hemorrhage, midline shift, intracranial mass, hydrocephalus, territorial ischem ia or abnormal extra-axial collection. Age-related involutional changes with ex vacuo ventriculomegal y. Mild degree of patchy white matter hypodensities are suggestive of chronic microvascular ischemic disease. Cerebral vascular calcifications noted. The calvarium is intact. Mild polypoid mucosal thickening of the left maxillary sinus. Mastoid air c ells are clear. The soft tissues and orbits are within normal limits. IMPRESSION: No acute intracranial abnormality. The above report was generated using voice recognition software. It may contain grammatical, syntax o r spelling errors. Electronically signed by: Stew Goetz M.D. 03/29/2019 6:33 AM
--- NOTE | 2019-03-29 06:51 | CT Scan Report ---
CT OF THE ABDOMEN AND PELVIS WITH CONTRAST CLINICAL HISTORY: Abdominal pain and fever. Pancreatic cancer. COMPARISON STUDY: CT of the abdomen and pelvis December 11, 2018. TECHNIQUE: Following IV administration of 92 mL of Optiray-320, axial images of the abdomen and pelvi s were obtained from the lung bases to the proximal femurs. Images were reviewed in the axial, sagitt al, and coronal planes. IV contrast was administered without complication. Automated exposure contro l was utilized for the study. A dose lowering technique was utilized adhering to the principles of A SIGIFREDO. CT DOSE: 443.16 mGy.cm FINDINGS: There are trace bilateral pleural effusions. Extensive coronary artery calcification is not ed. A few nodules within the lower lungs are unchanged from earlier exams. These are benign given sta bility. No pneumatosis, free air or portal venous gas is present. Pneumobilia is again noted. The com mon bile duct stent is in place. Mild biliary ductal dilatation is unchanged. A few hypodense hepatic lesions are unchanged from earlier exams. These are benign given stability. There are no new hepatic lesions. The spleen and adrenal glands are unremarkable. Pancreatic ductal dilatation is unchanged. Fullness within the region of the pancreatic head as site of previously described mass is similar to CT of December 11, 2018. Prominent adjacent lymph nodes are unchanged in size. Severe narrowing of the p ortosplenic confluence with collaterals is unchanged. Multiple bilateral renal calculi are noted. The re are no ureteral calculi. There is no hydronephrosis. A cyst within the lower pole the left kidney is noted. A few smaller lesions likely reflect cysts. The appendix is normal. There is no evidence fo r a bowel obstruction. Right hip arthroplasty is noted. Prostate is surgically absent. There is no pe lvic lymphadenopathy. There is trace ascites within the pelvis. The caliber and wall thickness of sma ll and large bowel are normal. The findings suggest of a previous left inguinal hernia repair with me sh. IMPRESSION: 1. No change since CT of December 11, 2018. 2. Stable fullness within the pancreatic head is a previous described mass with stable pancreatic samson racheal dilatation and prominent adjacent lymph nodes. No evidence for progressive metastatic disease. 3. Trace ascites within the pelvis. 4. No bowel obstruction. Normal appendix. 5. Extensive bilateral nephrolithiasis. No ureteral calculi or hydronephrosis. Electronically signed by: Kevin Thomason M.D. 03/29/2019 6:50 AM
[2019-03-29 08:16] LABS: Hemoglobin 9.7 g/dL (14.0-18.0); Mean Corpuscular Hgb Conc 32.3 g/dL (32-36); Mean Corpuscular Volume 95.2 fL (80-100); RDW Coefficient of Variation 19.2 % (11.5-14.5); RDW Standard Deviation 65.9 fL (36.4-46.3); Red Blood Count 3.15 M/uL (4.7-6.1); White Blood Count 5.32 K/uL (4.8-10.8)
[2019-03-29 08:30] LABS: BUN Creatinine Ratio 24.3 (10-20); Calcium 8.6 mg/dl (8.5-10.1); Creatinine Clr Calc Pharmacy 65.7 ml/min; Est GFR (African American) 91.3; Est GFR (Non-African American) 78.8; Potassium 4.1 mmol/L (3.5-5.1)
[2019-03-29] MEDS: ATORVASTATIN 10 MG TAB PO SCH (08:36)
[2019-03-29] MEDS: METOPROLOL SUCC 25MG EXT REL TAB PO SCH (08:36)
[2019-03-29] MEDS: ASPIRIN 81 MG ECTAB PO SCH (08:36)
[2019-03-29] MEDS: ALLOPURINOL 100 MG TAB PO SCH (08:37)
[2019-03-29] MEDS: INSULIN ASPART 100 UNITS/ML 3 ML PEN SC SCH ×4 (08:38→21:06)
[2019-03-29 08:48] LABS: Mean Platelet Volume 10.4 fL (7.4-10.4); Platelet Count 59 K/uL (130-400)
[2019-03-29 08:51] LABS: Eosinophils # (auto) 0.02 K/uL (0-0.5); Eosinophils % (auto) 0.4 %; Immature Granulocytes # (auto) 0.02 K/uL (0.00-0.02); Immature Granulocytes % (auto) 0.4 %; Lymphocytes # (auto) 0.32 K/uL (1.2-3.4); Monocytes # (auto) 0.15 K/uL (0.11-0.59); Monocytes % (auto) 2.8 %; Neutrophils # (auto) 4.81 K/uL (1.4-6.5); Neutrophils % (auto) 90.4 %; Ovalocytes 1+; Platelet Estimate Decreased (Normal)
[2019-03-29 08:53] LABS: Estimated Average Glucose 134 mg/dl; Hemoglobin A1C 6.3 % (4.5-5.6)
--- NOTE | 2019-03-29 09:19 | Oncology Consultation ---
Date of Consultation March 29, 2019 Assessment & Plan (1) Acute febrile illness: The source of his fever is unclear at present. He has no localizing symptoms of infection. His UA and CXR are not consistent with infections. Blood cultures are pending. He may have experienced a transient bacteremia secondary to his recent infusion. Also, gemcitabine sometimes causes drug fevers. He is not neutropenic, so we do not need to broaden his coverage. Present on Admission?: Yes (2) Pancreatic cancer: He is doing very well, with stable disease on scans. He has been on treatment now for 18 months and has a stable primary mass with no evidence of metastatic disease. He will likely continue with current therapy and is due again for treatment in 2 weeks. Present on Admission?: Yes History of Present Illness Reason for Consultation: Fevers Pancreatic cancer Attending Physician: Mateo Del Valle, DO History of Present Illness Mr. Desir is an 83 year old man with a history of diabetes, hypertension, and gout. He also has a locally advanced, unresectable pancreatic cancer. He has been on chemotherapy now since September,, initially with gemcitabine and Abraxane and now with single-agent gemcitabine. His most recent scans revealed largely stable disease and he tolerates treatment well. His last infusion was Tuesday. He was not feeling well yesterday. He was more tired and weak than venita ortega. He had a near syncopal event in his bathroom and needed assistance getting to his feet. His family called EMS and he came to the ER. There, he was febrile to 101.7. He felt better with hydration and was started on broad-spectrum IV antibiotics. He has no localizing signs or symptoms of infection. He is looking well this morning and is anxious to go home. Allergies Allergy/AdvReac Type Severity Reaction Status Date / Time amoxicillin Allergy Intermediate ITCHINESS,R Verified 03/29/19 00:08 JORGE L Penicillins Allergy Intermediate ITCHINESS, Verified 03/29/19 00:08 rash Home Medications Home Medications Medication Instructions Recorded Confirmed Type acetaminophen 325 mg PO Q4H PRN 03/29/19 03/29/19 History allopurinol 100 mg PO DAILY 03/29/19 03/29/19 History aspirin 81 mg PO DAILY 03/29/19 03/29/19 History atorvastatin 10 mg PO DAILY 03/29/19 03/29/19 History calcium carbonate-vit D3-min 1 tab PO DAILY 03/29/19 03/29/19 History cetirizine [Zyrtec] 10 mg PO DAILY PRN 03/29/19 03/29/19 History cholecalciferol (vitamin D3) 0 unit PO DAILY 03/29/19 03/29/19 History [Vitamin D3] insulin glargine [Lantus U-100 10 unit SUBCUT HS 03/29/19 03/29/19 History Insulin] insulin lispro [Humalog KwikPen 5 unit SUBCUT AC 03/29/19 03/29/19 History Insulin] ketoconazole 2 % TOPICAL DIRECTED 03/29/19 03/29/19 History metformin 1,000 mg PO BID 03/29/19 03/29/19 History metoprolol succinate 25 mg PO DAILY 03/29/19 03/29/19 History nitroglycerin 0.4 mg SUBLINGUAL DIRECTED 03/29/19 03/29/19 History ondansetron HCl [Zofran] 8 mg PO Q8H PRN 03/29/19 03/29/19 History prednisone 5 mg PO DAILY 03/29/19 03/29/19 History sennosides [senna] 8.6 mg PO HS PRN 03/29/19 03/29/19 History Patient History Medical History Pancreatic cancer (Chronic) Social History Preferred Language: Colombian Communication Ability: Effective Flux Core Welder Required: No Beliefs That Will Affect Care: None Current Living Situation: Family Other Information That Helps Us Care for You: Yes (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, at home does not take insulin if BSG <130) Feels Safe at Home: Yes Safety Concerns: Feels Safe At This Time Smoking Status: Never smoker Do You Dip or Chew Tobacco: No Second Hand Exposure: No Hx Alcohol Use: No Hx Substance Use: No Review of Systems Constitutional: + fever and + weakness; no sweats Eyes: no worsening vision Ear, Nose, Mouth, Throat: no nasal congestion and no sinus pain/pressure Respiratory: no cough and no dyspnea Cardiovascular: no chest pain, no palpitations and no edema Gastrointestinal: no abdominal pain, no nausea and no diarrhea/loose stools Genitourinary: no dysuria and no urinary frequency Integumentary: no rash Neurologic: no dizziness and no headache(s) Physical Exam Constitutional: healthy appearing and comfortable; no acute distress Eyes: + anicteric sclerae and EOM intact bilaterally ENMT: external ear and nose normal, oropharynx normal Respiratory: normal respiratory effort, lungs clear to auscultation Cardiovascular: RRR, no murmur, no edema Gastrointestinal (Abdomen): Inspection/Auscultation: normal bowel sounds; abdomen not distended Percussion/Palpation: abdomen soft; abdomen nontender Musculoskeletal: Extremities: + lower leg abnormality (His right ankle is very slightly mottled in color, no warmth or tenderness) Right Skin: no rashes, warm and dry Psychiatric: A+Ox3, euthymic affect Results & Data Vital Signs (Past 12 Hours) Vital Signs Temp Pulse Pulse Resp BP BP Pulse Ox 03/29/19 07:21 36.3 C L 61 20 127/69 98 03/29/19 03:52 36.6 C 65 18 119/68 97 03/29/19 02:11 36.6 C 65 18 138/57 L 94 03/29/19 00:20 70 18 127/60 94 03/28/19 23:28 72 18 100/51 L 93 03/28/19 21:44 38.7 C H 84 18 91/60 L 94 Laboratory Results Abnormal lab results 03/28/19 03/28/19 03/28/19 Range/Units 22:59 22:59 22:59 RBC 3.25 L (4.7-6.1) M/uL Hgb 10.0 L (14.0-18.0) g/dL POC Hgb (14.0-18.0) g/dl Hct 30.9 L (42-52) % POC Hct (42-52) % RDW Std Deviation 65.4 H (36.4-46.3) fL RDW Coeff of Lefty 19.1 H (11.5-14.5) % Plt Count 74 L (130-400) K/uL MPV 10.7 H (7.4-10.4) fL Neut # (Auto) 6.84 H (1.4-6.5) K/uL Lymph # (Auto) 0.25 L (1.2-3.4) K/uL [place] # (Auto) 0.69 H (0.11-0.59) K/uL Platelet Estimate (Normal) PT 12.8 H (9.0-12.0) Seconds INR 1.3 H (0.9-1.1) Chloride (98-107) mmol/L POC Total CO2 (24-31) mEq/l POC BUN (7-18) mg/dl BUN 25 H D (7-18) mg/dl BUN/Creatinine Ratio 20.8 H (10-20) Glucose 155 H (70-99) mg/dl POC Glucose (70-99) POC Glucose (other) (70-99) mg/dl Hemoglobin A1c (4.5-5.6) % Magnesium 1.6 L (1.8-2.4) mg/dl Total Bilirubin 2.0 H D (0.2-1) mg/dl C-Reactive Protein 6.44 H (0-0.29) mg/dl Total Protein 5.9 L (6.4-8.2) gm/dl Albumin 3.0 L (3.4-5.0) gm/dl Ur Specific [place] (1.000-1.030) Urine Ketones (Negative) 03/28/19 03/29/19 03/29/19 Range/Units 23:37 07:31 07:33 RBC 3.15 L (4.7-6.1) M/uL Hgb 9.7 L (14.0-18.0) g/dL POC Hgb 10.2 L (14.0-18.0) g/dl Hct 30.0 L (42-52) % POC Hct 30 L (42-52) % RDW Std Deviation 65.9 H (36.4-46.3) fL RDW Coeff of Lefty 19.2 H (11.5-14.5) % Plt Count 59 L (130-400) K/uL MPV (7.4-10.4) fL Neut # (Auto) (1.4-6.5) K/uL Lymph # (Auto) 0.32 L (1.2-3.4) K/uL [place] # (Auto) (0.11-0.59) K/uL Platelet Estimate Decreased L (Normal) PT (9.0-12.0) Seconds INR (0.9-1.1) Chloride (98-107) mmol/L POC Total CO2 22 L (24-31) mEq/l POC BUN 24 H (7-18) mg/dl BUN (7-18) mg/dl BUN/Creatinine Ratio (10-20) Glucose (70-99) mg/dl POC Glucose (70-99) POC Glucose (other) 160 H (70-99) mg/dl Hemoglobin A1c 6.3 H (4.5-5.6) % Magnesium (1.8-2.4) mg/dl Total Bilirubin (0.2-1) mg/dl C-Reactive Protein (0-0.29) mg/dl Total Protein (6.4-8.2) gm/dl Albumin (3.4-5.0) gm/dl Ur Specific [place] (1.000-1.030) Urine Ketones (Negative) 03/29/19 03/29/19 03/29/19 Range/Units 07:33 07:57 Unknown RBC (4.7-6.1) M/uL Hgb (14.0-18.0) g/dL POC Hgb (14.0-18.0) g/dl Hct (42-52) % POC Hct (42-52) % RDW Std Deviation (36.4-46.3) fL RDW Coeff of [place]efty (11.5-14.5) % Plt Count (130-400) K/uL MPV (7.4-10.4) fL Neut # (Auto) (1.4-6.5) K/uL Lymph # (Auto) (1.2-3.4) K/uL [place] # (Auto) (0.11-0.59) K/uL Platelet Estimate (Normal) PT (9.0-12.0) Seconds INR (0.9-1.1) Chloride 110 H (98-107) mmol/L POC Total CO2 (24-31) mEq/l POC BUN (7-18) mg/dl BUN 22 H (7-18) mg/dl BUN/Creatinine Ratio 24.3 H (10-20) Glucose 143 H (70-99) mg/dl POC Glucose 154 H (70-99) POC Glucose (other) (70-99) mg/dl Hemoglobin A1c (4.5-5.6) % Magnesium (1.8-2.4) mg/dl Total Bilirubin (0.2-1) mg/dl C-Reactive Protein (0-0.29) mg/dl Total Protein (6.4-8.2) gm/dl Albumin (3.4-5.0) gm/dl Ur Specific [place] > 1.045 H (1.000-1.030) Urine Ketones Trace H (Negative) Diagnostic Findings I reviewed reports of his recent CT A/P, chest x-ray, and Head CT. The latter two studies were unremarkable. The CT A/P showed a stable pancreatic mass and no other acute findings. (1) Pancreatic cancer Pancreatic malignancy location: head of pancreas Qualified Code(s): C25.0 - Malignant neoplasm of head of pancreas
[2019-03-29] MEDS: CEFEPIME 1,000 MG in SYRINGE 0 ML IV SCH ×2 (09:48→18:46)
--- NOTE | 2019-03-29 10:12 | Pharmacy Report ---
Pharmacy Abx Initial Consult - Date of Service March 29, 2019 - Pharmacy Dosing Scope Date of Consult: 03/29 Consultation requested by: Dr. Tafoya Pharmacy is consulted to initiate vancomycin IV/PO dosing therapy, order appropriate labs and adjust drug dose/frequency. - Subjective The patient is a 83 year old M admitted on 03/29/19 02:51. - Objective Height: 5 ft 10 in Weight: 81.9 kg Vital Signs (Past 12hrs): Vital Signs Temp Pulse Resp BP Pulse Ox 03/29/19 07:21 36.3 C L 61 20 127/69 98 03/29/19 03:52 36.6 C 65 18 119/68 97 03/29/19 02:11 36.6 C 65 18 138/57 L 94 03/29/19 00:20 70 18 127/60 94 03/28/19 23:28 72 18 100/51 L 93 Lab Results (24hrs): Laboratory Tests (24 Hours) 03/29/19 03/29/19 03/28/19 07:33 07:33 22:59 WBC 5.32 Neut # (Auto) 4.81 ESR Creatinine 0.91 D Est Cr Clr Drug Dosing 65.7 C-Reactive Protein Procalcitonin 0.44 Micro Results: 03/28/19 23:15 Aerobic Blood Culture - Pending Blood Anaerobic Blood Culture - Pending 03/28/19 22:59 Aerobic Blood Culture - Pending Blood Anaerobic Blood Culture - Pending - Risk Factors for Resistance * Immunocompromised ( chemotherapy) - Assessment & Plan Assessment 83 year old male started on vancomycin and cefepime after being admitted with altered mental status, febrile illness and concern for infection. Patient undergoing chemotherapy for metastatic pancreatic cancer. Hematology also consulted, unclear if fevers related to medication per their note. Did have fever on admission, but has been afebrile since then. No leukocytosis noted. UA not suggestive of infection. Plan Vancomycin IV * Received loading dose of 1750 mg (~21 mg/kg) in the ED * Will start maintenance dose of vancomycin 1250 mg (~15 mg/kg) iv q 14 hrs to achieve an estimated trough ~15-20 mcg/ml * Estimated kinetics: t1/2~12 hrs, ke~0.05 hr-1, CrCl ~65 ml/min - baseline Scr appears to be ~1.0 mg/dL * Ordered as empiric x 48 hrs - if plan is to continue, will order trough as ap propriate * Blood cultures x 2 are pending at this time Pharmacy will continue to follow and will adjust dose/frequency as necessary. Thank you.
--- NOTE | 2019-03-29 10:42 | Family Medicine Progress Note ---
Date of Service March 29, 2019 Assessment & Plan (1) Altered mental status: Pt is a 83yo M PMH metastatic pancreatic cancer (last chemo 03/27), anemia, gout, HLD, DM, HTN admitted for AMS and fever 24 hours after last chemo session. Altered mental status, resolved -In setting of acute fever, recent chemo for metastatic pancreatic cancer -Pending zapien-cultures; wait at least for prelim read 24-48 hrs prior to DC home -Continue empiric vancomycin IV and Zosyn IV; consider completing PO course of abx upon DC -Continue stress dose hydrocortisone 100 mg IV every 8 hours. -No s/s of pna, UTI, skin/soft tissue infx, mucositis. Pending blood cultures -Appreciate oncology and ID consults Acute febrile illness -Possibly related to gemcitabine per oncology (drug fever, transient bacteremia) -Will be 24 hours fever free at 10pm on 03/30 -No overt signs of infx as noted above Pancreatic cancer -Appears stable over past 18 months, due for scans in April 2019 -No plans to change chemo regimen at this time Diabetes mellitus -Hold Lantus insulin 10 units subcu HS and current standing order of Humalog 5 units subcu with meals. -BSG ACHS -NovoLog coverage per scale. Hypertension -Patient was mildly hypotensive with blood pressure 91/60 upon arrival. -Significant improvement to normal range with hydration. -C/W metoprolol succinate with hold parameters. Hyperlipidemia -Continue atorvastatin 10 mg daily. Chronic anemia -Hemoglobin 10.0 on admission laboratories. Stable from historical visits (- ) -Monitor Hypomagnesemia -Magnesium level 1.6 on ED laboratories. -Repleted, will monitor Thrombocytopenia -Likely associated with chemotherapy; monitor Gout -Continue allopurinol DVTP: ambulation Dispo: med surg; await at least prelim read of cultures CODE: DNR/I (2) Acute febrile illness: (3) Fever: (4) Hypertension: (5) Hyperlipidemia: (6) Gout: (7) Chronic anemia: (8) Pancreatic cancer: (9) Diabetes mellitus: (10) Hypomagnesemia: (11) Thrombocytopenia: Supervising Physician Co-Signing Physician Notes I personally examined the patient and verified all sawyer points of history and exam, discussed case, and agree with decision making with Dr Dow. Feeling much better. No fevers. No new complaints at all. Vitals noted, in general he is awake and alert pleasant no distress. HEENT normocephalic atraumatic mucous members moist. Breathing unlabored no accessory muscle use good effort. Skin shows no rashes no pallor or icterus. Neuro shows no focal deficits. Fever in the context of chemotherapyhe is much improved - follow blood cultures, continue empiric abx for now. hopefully home tomorrow. otherwise as above Subjective Patient feels well this AM. Does recall events from yesterday, but states he thinks he was just tired and dehydrated after his chemo session 2 days ago. He is eager to return to home. Review of Systems Review of Systems: All systems reviewed & are unremarkable except as noted in HPI & below Constitutional: no fever, no chills and no body aches Ear, Nose, Mouth, Throat: + hearing loss Respiratory: no cough, no chest congestion, no dyspnea and no sputum production Cardiovascular: no chest pain, no radiating jaw, neck or arm pain, no palpitations, no lightheadedness and no edema Gastrointestinal: + cramping (occasional gas cramps, not current); no abdominal pain, no nausea, no vomiting, no change in stools and no blood in stools Genitourinary: no dysuria and no urinary hesitancy Musculoskeletal: no back pain and no myalgia Integumentary: + change in skin color (some purpling to RLE) Neurologic: + memory loss Physical Exam Constitutional: WD/WN, vitals as above Eyes: PERRL, conjunctivae normal, anicteric sclerae ENMT: external ear and nose normal, oropharynx normal Neck: trachea midline, no thyromegaly Respiratory: normal respiratory effort, lungs clear to auscultation Cardiovascular: RRR, no murmur, no edema Gastrointestinal (Abdomen): normal bowel sounds, soft, nontender, no hepatosplenomegaly Musculoskeletal: no cyanosis or clubbing, extremities motor strength 5/5 Skin: no rashes, warm and dry Neurologic: PERRL, EOMI, accommodation nl, no face palsy, no dysarthria Psychiatric: A+Ox3, euthymic affect Results & Data Vital Signs (Past 12 Hours) Vital Signs Temp Pulse Resp BP Pulse Ox 03/29/19 07:21 36.3 C L 61 20 127/69 98 03/29/19 03:52 36.6 C 65 18 119/68 97 03/29/19 02:11 36.6 C 65 18 138/57 L 94 03/29/19 00:20 70 18 127/60 94 03/28/19 23:28 72 18 100/51 L 93 Laboratory Results 03/29/19 03/29/19 03/29/19 Range/Units Unknown 07:57 07:33 WBC (4.8-10.8) K/uL RBC (4.7-6.1) M/uL Hgb (14.0-18.0) g/dL POC Hgb (14.0-18.0) g/dl Hct (42-52) % POC Hct (42-52) % MCV (80-100) fL MCH (25-34) pg MCHC (32-36) g/dL RDW Std Deviation (36.4-46.3) fL RDW Coeff of [place]efty (11.5-14.5) % Plt Count (130-400) K/uL MPV (7.4-10.4) fL Immature Gran % (Auto) % Neut % (Auto) % Lymph % (Auto) % [place] % (Auto) % Eos % (Auto) % Baso % (Auto) % Immature Gran # (Auto) (0.00-0.02) K/uL Neut # (Auto) (1.4-6.5) K/uL Lymph # (Auto) (1.2-3.4) K/uL [place] # (Auto) (0.11-0.59) K/uL Eos # (Auto) (0-0.5) K/uL Baso # (Auto) (0-0.2) K/uL Platelet Estimate (Normal) Tear Drop Cells Ovalocytes ESR (0-14) mm/hr PT (9.0-12.0) Seconds INR (0.9-1.1) APTT (21.0-31.0) Seconds PTT Ratio POC Sodium (135-144) mEq/L Sodium 141 (136-145) mmol/L POC Potassium (3.3-5.0) mEq/L Potassium 4.1 (3.5-5.1) mmol/L POC Chloride (101-112) mEq/L Chloride 110 H (98-107) mmol/L Carbon Dioxide 26 (21-32) mmol/L POC Total CO2 (24-31) mEq/l Anion Gap 5.0 (3-11) POC Anion Gap (16-25) mmol/L POC BUN (7-18) mg/dl BUN 22 H (7-18) mg/dl Creatinine 0.91 D (0.6-1.4) mg/dl POC Creatinine (0.6-1.3) mg/dl Est Cr Clr Drug Dosing 65.7 ml/min Est GFR ( Amer) 91.3 Est GFR (Non-Af Amer) 78.8 BUN/Creatinine Ratio 24.3 H (10-20) Glucose 143 H (70-99) mg/dl POC Glucose 154 H (70-99) POC Glucose (other) (70-99) mg/dl Estimat Average Glucose mg/dl Hemoglobin A1c (4.5-5.6) % Lactate (0.4-2.0) mmol/L Calcium 8.6 (8.5-10.1) mg/dl POC Ioniz Calcium [place] (1.12-1.32) mmol/l Magnesium (1.8-2.4) mg/dl Total Bilirubin (0.2-1) mg/dl AST (15-37) U/L ALT (12-78) U/L Alkaline Phosphatase (45-117) U/L Troponin I (0-0.045) ng/ml C-Reactive Protein (0-0.29) mg/dl Total Protein (6.4-8.2) gm/dl Albumin (3.4-5.0) gm/dl Globulin (2.5-4.0) gm/dl Albumin/Globulin Ratio (0.9-2) Procalcitonin (0-0.5) ng/ml Urine Color Dark Yellow Urine Appearance Clear (Clear) Urine pH 5.0 (4.5-7.5) Ur Specific [place] > 1.045 H (1.000-1.030) Urine Protein Negative (Negative) Urine Glucose (UA) Negative (Negative) Urine Ketones Trace H (Negative) Urine Blood Negative (Negative) Urine Nitrite Negative (Negative) Urine Bilirubin Negative (Negative) Urine Urobilinogen Negative (Negative) Ur Leukocyte Esterase Negative (Negative) 03/29/19 03/29/19 03/28/19 Range/Units 07:33 07:31 23:37 WBC 5.32 (4.8-10.8) K/uL RBC 3.15 L (4.7-6.1) M/uL Hgb 9.7 L (14.0-18.0) g/dL POC Hgb 10.2 L (14.0-18.0) g/dl Hct 30.0 L (42-52) % POC Hct 30 L (42-52) % MCV 95.2 (80-100) fL MCH 30.8 (25-34) pg MCHC 32.3 (32-36) g/dL RDW Std Deviation 65.9 H (36.4-46.3) fL RDW Coeff of [place]efty 19.2 H (11.5-14.5) % Plt Count 59 L (130-400) K/uL MPV 10.4 (7.4-10.4) fL Immature Gran % (Auto) 0.4 % Neut % (Auto) 90.4 % Lymph % (Auto) 6.0 % [place] % (Auto) 2.8 % Eos % (Auto) 0.4 % Baso % (Auto) 0.0 % Immature Gran # (Auto) 0.02 (0.00-0.02) K/uL Neut # (Auto) 4.81 (1.4-6.5) K/uL Lymph # (Auto) 0.32 L (1.2-3.4) K/uL [place] # (Auto) 0.15 (0.11-0.59) K/uL Eos # (Auto) 0.02 (0-0.5) K/uL Baso # (Auto) 0.00 (0-0.2) K/uL Platelet Estimate Decreased L (Normal) Tear Drop Cells Ovalocytes 1+ ESR (0-14) mm/hr PT (9.0-12.0) Seconds INR (0.9-1.1) APTT (21.0-31.0) Seconds PTT Ratio POC Sodium 137 (135-144) mEq/L Sodium (136-145) mmol/L POC Potassium 4.3 (3.3-5.0) mEq/L Potassium (3.5-5.1) mmol/L POC Chloride 101 (101-112) mEq/L Chloride (98-107) mmol/L Carbon Dioxide (21-32) mmol/L POC Total CO2 22 L (24-31) mEq/l Anion Gap (3-11) POC Anion Gap 20.0 (16-25) mmol/L POC BUN 24 H (7-18) mg/dl BUN (7-18) mg/dl Creatinine (0.6-1.4) mg/dl POC Creatinine 1.3 (0.6-1.3) mg/dl Est Cr Clr Drug Dosing ml/min Est GFR ( Amer) Est GFR (Non-Af Amer) BUN/Creatinine Ratio (10-20) Glucose (70-99) mg/dl POC Glucose (70-99) POC Glucose (other) 160 H (70-99) mg/dl Estimat Average Glucose 134 mg/dl Hemoglobin A1c 6.3 H (4.5-5.6) % Lactate (0.4-2.0) mmol/L Calcium (8.5-10.1) mg/dl POC Ioniz Calcium [place] 1.18 (1.12-1.32) mmol/l Magnesium (1.8-2.4) mg/dl Total Bilirubin (0.2-1) mg/dl AST (15-37) U/L ALT (12-78) U/L Alkaline Phosphatase (45-117) U/L Troponin I (0-0.045) ng/ml C-Reactive Protein (0-0.29) mg/dl Total Protein (6.4-8.2) gm/dl Albumin (3.4-5.0) gm/dl Globulin (2.5-4.0) gm/dl Albumin/Globulin Ratio (0.9-2) Procalcitonin (0-0.5) ng/ml Urine Color Urine Appearance (Clear) Urine pH (4.5-7.5) Ur Specific [place] (1.000-1.030) Urine Protein (Negative) Urine Glucose (UA) (Negative) Urine Ketones (Negative) Urine Blood (Negative) Urine Nitrite (Negative) Urine Bilirubin (Negative) Urine Urobilinogen (Negative) Ur Leukocyte Esterase (Negative) 03/28/19 03/28/19 03/28/19 Range/Units 22:59 22:59 22:59 WBC (4.8-10.8) K/uL RBC (4.7-6.1) M/uL Hgb (14.0-18.0) g/dL POC Hgb (14.0-18.0) g/dl Hct (42-52) % POC Hct (42-52) % MCV (80-100) fL MCH (25-34) pg MCHC (32-36) g/dL RDW Std Deviation (36.4-46.3) fL RDW Coeff of [place]efty (11.5-14.5) % Plt Count (130-400) K/uL MPV (7.4-10.4) fL Immature Gran % (Auto) % Neut % (Auto) % Lymph % (Auto) % [place] % (Auto) % Eos % (Auto) % Baso % (Auto) % Immature Gran # (Auto) (0.00-0.02) K/uL Neut # (Auto) (1.4-6.5) K/uL Lymph # (Auto) (1.2-3.4) K/uL [place] # (Auto) (0.11-0.59) K/uL Eos # (Auto) (0-0.5) K/uL Baso # (Auto) (0-0.2) K/uL Platelet Estimate (Normal) Tear Drop Cells Ovalocytes ESR (0-14) mm/hr PT (9.0-12.0) Seconds INR (0.9-1.1) APTT (21.0-31.0) Seconds PTT Ratio POC Sodium (135-144) mEq/L Sodium 138 (136-145) mmol/L POC Potassium (3.3-5.0) mEq/L Potassium 4.4 (3.5-5.1) mmol/L POC Chloride (101-112) mEq/L Chloride 105 (98-107) mmol/L Carbon Dioxide 25 (21-32) mmol/L POC Total CO2 (24-31) mEq/l Anion Gap 7.0 (3-11) POC Anion Gap (16-25) mmol/L POC BUN (7-18) mg/dl BUN 25 H D (7-18) mg/dl Creatinine 1.22 D (0.6-1.4) mg/dl POC Creatinine (0.6-1.3) mg/dl Est Cr Clr Drug Dosing 49.0 ml/min Est GFR ( Amer) 64.0 Est GFR (Non-Af Amer) 55.3 BUN/Creatinine Ratio 20.8 H (10-20) Glucose 155 H (70-99) mg/dl POC Glucose (70-99) POC Glucose (other) (70-99) mg/dl Estimat Average Glucose mg/dl Hemoglobin A1c (4.5-5.6) % Lactate 1.3 (0.4-2.0) mmol/L Calcium 9.1 (8.5-10.1) mg/dl POC Ioniz Calcium [place] (1.12-1.32) mmol/l Magnesium 1.6 L (1.8-2.4) mg/dl Total Bilirubin 2.0 H D (0.2-1) mg/dl AST 36 (15-37) U/L ALT 37 (12-78) U/L Alkaline Phosphatase 63 (45-117) U/L Troponin I < 0.015 (0-0.045) ng/ml C-Reactive Protein 6.44 H (0-0.29) mg/dl Total Protein 5.9 L (6.4-8.2) gm/dl Albumin 3.0 L (3.4-5.0) gm/dl Globulin 2.9 (2.5-4.0) gm/dl Albumin/Globulin Ratio 1.0 (0.9-2) Procalcitonin 0.44 (0-0.5) ng/ml Urine Color Urine Appearance (Clear) Urine pH (4.5-7.5) Ur Specific [place] (1.000-1.030) Urine Protein (Negative) Urine Glucose (UA) (Negative) Urine Ketones (Negative) Urine Blood (Negative) Urine Nitrite (Negative) Urine Bilirubin (Negative) Urine Urobilinogen (Negative) Ur Leukocyte Esterase (Negative) 03/28/19 03/28/19 03/28/19 Range/Units 22:59 22:59 22:59 WBC 7.79 (4.8-10.8) K/uL RBC 3.25 L (4.7-6.1) M/uL Hgb 10.0 L (14.0-18.0) g/dL POC Hgb (14.0-18.0) g/dl Hct 30.9 L (42-52) % POC Hct (42-52) % MCV 95.1 (80-100) fL MCH 30.8 (25-34) pg MCHC 32.4 (32-36) g/dL RDW Std Deviation 65.4 H (36.4-46.3) fL RDW Coeff of Lefty 19.1 H (11.5-14.5) % Plt Count 74 L (130-400) K/uL MPV 10.7 H (7.4-10.4) fL Immature Gran % (Auto) 0.1 % Neut % (Auto) 87.8 % Lymph % (Auto) 3.2 % [place] % (Auto) 8.9 % Eos % (Auto) 0.0 % Baso % (Auto) 0.0 % Immature Gran # (Auto) 0.01 (0.00-0.02) K/uL Neut # (Auto) 6.84 H (1.4-6.5) K/uL Lymph # (Auto) 0.25 L (1.2-3.4) K/uL [place] # (Auto) 0.69 H (0.11-0.59) K/uL Eos # (Auto) 0.00 (0-0.5) K/uL Baso # (Auto) 0.00 (0-0.2) K/uL Platelet Estimate (Normal) Tear Drop Cells 1+ Ovalocytes 1+ ESR 6 (0-14) mm/hr PT 12.8 H (9.0-12.0) Seconds INR 1.3 H (0.9-1.1) APTT 30.2 (21.0-31.0) Seconds PTT Ratio 1.1 POC Sodium (135-144) mEq/L Sodium (136-145) mmol/L POC Potassium (3.3-5.0) mEq/L Potassium (3.5-5.1) mmol/L POC Chloride (101-112) mEq/L Chloride (98-107) mmol/L Carbon Dioxide (21-32) mmol/L POC Total CO2 (24-31) mEq/l Anion Gap (3-11) POC Anion Gap (16-25) mmol/L POC BUN (7-18) mg/dl BUN (7-18) mg/dl Creatinine (0.6-1.4) mg/dl POC Creatinine (0.6-1.3) mg/dl Est Cr Clr Drug Dosing ml/min Est GFR ( Amer) Est GFR (Non-Af Amer) BUN/Creatinine Ratio (10-20) Glucose (70-99) mg/dl POC Glucose (70-99) POC Glucose (other) (70-99) mg/dl Estimat Average Glucose mg/dl Hemoglobin A1c (4.5-5.6) % Lactate (0.4-2.0) mmol/L Calcium (8.5-10.1) mg/dl POC Ioniz Calcium [place] (1.12-1.32) mmol/l Magnesium (1.8-2.4) mg/dl Total Bilirubin (0.2-1) mg/dl AST (15-37) U/L ALT (12-78) U/L Alkaline Phosphatase (45-117) U/L Troponin I (0-0.045) ng/ml C-Reactive Protein (0-0.29) mg/dl Total Protein (6.4-8.2) gm/dl Albumin (3.4-5.0) gm/dl Globulin (2.5-4.0) gm/dl Albumin/Globulin Ratio (0.9-2) Procalcitonin (0-0.5) ng/ml Urine Color Urine Appearance (Clear) Urine pH (4.5-7.5) Ur Specific [place] (1.000-1.030) Urine Protein (Negative) Urine Glucose (UA) (Negative) Urine Ketones (Negative) Urine Blood (Negative) Urine Nitrite (Negative) Urine Bilirubin (Negative) Urine Urobilinogen (Negative) Ur Leukocyte Esterase (Negative) Medications Administered Current Inpatient Medications Acetaminophen (Tylenol) 650 mg PO Q4H PRN PRN Reason: pain/fever Stop: 04/28/19 03:46 Al Hydrox/Mg Hydrox/Simethicone (Maalox) 30 ml PO Q6H PRN PRN Reason: Dyspepsia Stop: 04/28/19 03:46 Allopurinol (Zyloprim) 100 mg PO DAILY [facility] Stop: 04/28/19 08:59 Last Admin: 03/29/19 08:37 Dose: 100 mg Documented by: Aspirin (Ecotrin Ectab) 81 mg PO DAILY [facility] Stop: 04/28/19 08:59 Last Admin: 03/29/19 08:36 Dose: 81 mg Documented by: Atorvastatin Calcium (Lipitor) 10 mg PO DAILY [facility] Stop: 04/28/19 08:59 Last Admin: 03/29/19 08:36 Dose: 10 mg Documented by: Dextrose (Dextrose 50%) 25 - 50 ml IV UD PRN; Protocol PRN Reason: Hypoglycemia Protocol Stop: 04/28/19 03:46 Glucagon (Glucagen) 1 mg SQ UD PRN; Protocol PRN Reason: Hypoglycemia Protocol Stop: 04/28/19 03:46 Glucose (Glucose 40%) 15 - 30 gm PO UD PRN; Protocol PRN Reason: Hypoglycemia Protocol Stop: 04/28/19 03:46 Glucose (Dex4 Glucose) 4 - 8 tabs PO UD PRN; Protocol PRN Reason: Hypoglycemia Protocol Stop: 04/28/19 03:46 Heparin Sodium (Porcine) (Heparin Sod 100 Unit/Ml Flush) 5 ml IV PRN PRN PRN Reason: Flush Stop: 04/28/19 05:44 Last Admin: 03/29/19 09:48 Dose: 5 ml Documented by: Cefepime HCl 1,000 mg/ Syringe 11.3 mls @ 5.5 mls/min IV Q8H [facility]; Protocol Stop: 03/31/19 09:59 Last Admin: 03/29/19 09:48 Dose: 5.5 mls/min Documented by: Hydrocortisone Sodium (Succinate 100 mg/ Syringe) 2 mls @ 4 mls/min IV Q8H [facility] Stop: 04/28/19 03:59 Last Admin: 03/29/19 04:29 Dose: 4 mls/min Documented by: Vancomycin HCl 1,250 mg/ (Sodium Chloride) 275 mls @ 125 mls/hr IV Q14H [facility] Stop: 03/31/19 15:59 Insulin Aspart (Novolog Flexpen) 0 units SC ACHS [facility] Stop: 04/28/19 07:29 Last Admin: 03/29/19 08:38 Dose: 5 units Documented by: Ioversol (Optiray 320 100ml) 100 ml IV ONCE PRN PRN Reason: Interaction Checking Stop: 04/02/19 00:14 Last Admin: 03/29/19 00:15 Dose: 92 ml Documented by: Magnesium Hydroxide (Milk Of Magnesia) 30 ml PO Q6H PRN PRN Reason: Constipation Stop: 04/28/19 03:46 Metoprolol Succinate (Toprol Xl) 25 mg PO DAILY [facility] Stop: 04/28/19 08:59 Last Admin: 03/29/19 08:36 Dose: 25 mg Documented by: Miscellaneous (Carbohydrates For Hypoglycemia) 15 - 30 gm PO UD PRN PRN Reason: Hypoglycemia Treatment Stop: 04/28/19 03:46 Miscellaneous Information (Consult) 1 ea N/A UD PRN PRN Reason: Consult Stop: 04/28/19 03:46 Nitroglycerin (Nitrostat) 0.4 mg SL UD PRN PRN Reason: Chest Pain Stop: 04/28/19 03:46 PG Care Time/CCT Total # of Minutes Spent Total Time Spent with Patient: Total time spent is greater than 50% in coordination of care (as documented) at patient's floor/unit and/or counseling patient: Resident Activity Tracking Resident Involvement: Resident Care Provided Care Provided: Adult Hospital Medicine (1) Fever Fever type: unspecified Qualified Code(s): R50.9 - Fever, unspecified (2) Pancreatic cancer Pancreatic malignancy location: head of pancreas Qualified Code(s): C25.0 - Malignant neoplasm of head of pancreas (3) Altered mental status Altered mental status type: unspecified Qualified Code(s): R41.82 - Altered mental status, unspecified
[2019-03-29] MEDS: VANCOMYCIN HCL 1,250 MG in SODIUM CHLORIDE 0.9% 250 ML IV SCH (16:31)
[2019-03-30] MEDS: CEFEPIME 1,000 MG in SYRINGE 0 ML IV SCH ×2 (02:08→10:46)
[2019-03-30] MEDS: HYDROCORTISONE SOD 100 MG in SYRINGE 0 ML IV SCH (04:02)
[2019-03-30] MEDS: VANCOMYCIN HCL 1,250 MG in SODIUM CHLORIDE 0.9% 250 ML IV SCH (05:59)
[2019-03-30 06:24] LABS: Hemoglobin 9.9 g/dL (14.0-18.0); Mean Corpuscular Volume 94.6 fL (80-100); RDW Coefficient of Variation 18.5 % (11.5-14.5); RDW Standard Deviation 63.3 fL (36.4-46.3); Red Blood Count 3.17 M/uL (4.7-6.1); White Blood Count 8.18 K/uL (4.8-10.8)
[2019-03-30 06:37] LABS: Mean Platelet Volume 11.3 fL (7.4-10.4); Platelet Count 82 K/uL (130-400)
[2019-03-30 06:49] LABS: Creatinine Clr Calc Pharmacy 62.3 ml/min; Est GFR (African American) 85.6; Est GFR (Non-African American) 73.8; Magnesium 2.3 mg/dl (1.8-2.4)
[2019-03-30 07:00] LABS: Eosinophils # (auto) 0.01 K/uL (0-0.5); Eosinophils % (auto) 0.1 %; Immature Granulocytes # (auto) 0.02 K/uL (0.00-0.02); Immature Granulocytes % (auto) 0.2 %; Lymphocytes # (auto) 0.35 K/uL (1.2-3.4); Lymphocytes % (auto) 4.3 %; Monocytes # (auto) 0.12 K/uL (0.11-0.59); Monocytes % (auto) 1.5 %; Neutrophils # (auto) 7.68 K/uL (1.4-6.5); Neutrophils % (auto) 93.9 %; Ovalocytes 1+; Tear Drop Cells 1+
[2019-03-30] MEDS: ASPIRIN 81 MG ECTAB PO SCH (08:24)
[2019-03-30] MEDS: METOPROLOL SUCC 25MG EXT REL TAB PO SCH (08:24)
[2019-03-30] MEDS: ATORVASTATIN 10 MG TAB PO SCH (08:24)
[2019-03-30] MEDS: ALLOPURINOL 100 MG TAB PO SCH (08:24)
[2019-03-30] MEDS: INSULIN ASPART 100 UNITS/ML 3 ML PEN SC SCH ×2 (08:26→13:16)
[2019-03-30] MEDS ORDERED: predniSONE 5 MG TAB PO SCH (09:00)
--- NOTE | 2019-03-30 12:13 | Discharge Summary ---
Date of Service March 30, 2019 Admission HPI Per Admitting Provider The patient is a 83-year-old male who presents to the emergency department along with his family, who have noted him to be more confused and not acting himself over the past few days. He presently is being treated for metastatic pancreatic cancer, with his last chemo treatment yesterday. The patient himself has no complaints at this time, and the family notes that he appears to have improved somewhat after being given some IV fluids while in the ED. He was noted to have a temperature of 101.7 F upon arrival in the ED. The family does note that the patient's memory is failing, and cannot always report when he is not feeling well. Admission Exam Per Admitting Provider Physical Exam: The patient is awake, alert and oriented 3, well developed and well nourished, normocephalic and atraumatic, lying in bed and in no acute distress. HEENT--PERRL, EOMI, mucous membranes and oropharynx normal. Neck--supple. No JVD. No bruits. Thyroid normal, trachea midline, no adenopathy. Heart--normal S1 and S2. No murmurs, rubs or gallops. Lungs--clear bilaterally, no respiratory distress, no accessory muscle use. Abdomen--normal bowel sounds and soft. Nontender. Nondistended, no hernias or masses, no organomegaly. Extremities--no cyanosis or clubbing. No edema. There are good distal pulses b/l. Dermatologic--normal skin turgor, normal color, no abnormal lymph nodes, no rash. Neurologic--cranial nerves II through XII grossly intact. Rheumatologic--normal range of motion. Psychiatric--normal affect. Principal Diagnosis Fever Discharge Exam Constitutional WD/WN, vitals as above healthy appearing and comfortable; no acute distress Eyes PERRL, conjunctivae normal, anicteric sclerae ENMT external ear and nose normal, oropharynx normal Neck central line in place. Dressing C/D/I. Respiratory normal respiratory effort, lungs clear to auscultation Cardiovascular RRR, no murmur, no edema Gastrointestinal (Abdomen) normal bowel sounds, soft, nontender, no hepatosplenomegaly Musculoskeletal no cyanosis or clubbing, extremities motor strength 5/5 Skin no rashes, warm and dry Psychiatric A+Ox3, euthymic affect Discharge Data Allergies Allergy/AdvReac Type Severity Reaction Status Date / Time amoxicillin Allergy Intermediate ITCHINESS,R Verified 03/29/19 00:08 JORGE L Penicillins Allergy Intermediate ITCHINESS, Verified 03/29/19 00:08 rash Consultations 03/29/19 01:53 ED Decision to Admit Stat 03/29/19 03:47 Consult Case Management - Discharge Planning Routine Consult Hematology Routine Ordered Studies 03/28/19 22:10 CT abd pelvis IV con only Urgent CT head/brain wo con Urgent Hospital Course (1) Altered mental status: Mr. Desir is a 83 year old male with a past medical history of metastatic pancreatic cancer (last chemo 03/27), anemia, gout, HLD, DM, HTN who was admitted for AMS and fever 24 hours after last chemo session. Altered mental status, resolved -In setting of acute fever, recent chemo for metastatic pancreatic cancer and dehydration -was initially treating with IV cefepime and IV Vancomycin empirically -preliminary bcx negative after 48h -given chronic prednisone use since September 2017, he was also stress dosed with hydrocortisone 100 mg IV every 8 hours. -No s/s of pna, UTI, skin/soft tissue infx, mucositis -afebrile since initial admission temp -oncology consulted -> Possibly related to gemcitabine (drug fever, transient bacteremia) -will d/c patient home w/out abx - will call and f/u if bcx become positive but do not suspect that this will occur Pancreatic cancer -Appears stable over past 18 months, due for scans in April 2019 -No plans to change chemo regimen at this time Diabetes mellitus -continue home regimen Hypertension -Patient was mildly hypotensive with blood pressure 91/60 upon arrival -Significant improvement to normal range with hydration. -C/W metoprolol succinate Hyperlipidemia -Continue atorvastatin 10 mg daily. Chronic anemia -Hemoglobin 9.9 on d/c. Stable from historical visits (-11) Thrombocytopenia -Likely associated with chemotherapy -Platelet level on d/c was 82 Gout -Continue allopurinol (2) Acute febrile illness: (3) Fever: (4) Hypertension: (5) Hyperlipidemia: (6) Gout: (7) Chronic anemia: (8) Pancreatic cancer: (9) Diabetes mellitus: (10) Hypomagnesemia: (11) Thrombocytopenia: Total Time Total Time Spent Total Time Spent (In Minutes): <30 Discharge Plan Discharge Items Patient Disposition: Home - Self-Care Reason For Visit: FEBRILE ILLNESS,CHEMOTHERAPY,DISORIENTATION Discharge Diagnosis: Fever Discharge Goals: Decrease discomfort and Prevent disease Activity: Resume your previous activity Non-emergency contact: Primary Care Provider Call non-emergency contact if: you have any medication questions, your symptoms worsen and your temperature is above 100.5 Follow-up/Referrals: Gil Ambrose MD [Primary Care Provider] - Diet: Carb Consistent or DM2 Addtl Provider Instructions: Mr. Desir, saira were admitted to [facility] due to a fever. You were treated with IV antibiotics. We earl blood cultures to check for infection in your bloodstream. These were negative after 48 hours. Given the fact that you seem to be doing well, has not had any more fevers, do not have any signs of infection, we feel that it is safe to discharge you home. We are not making any changes to your home medications. Please continue to take them as prescribed. If you have a recurrent fever, chills, or develop any new symptoms you are co ncerned about, please seek medical attention. As we discussed, there is a very small chance of your blood cultures becoming positive over the next few days. If this is the case, we will call you to let you know. Prescriptions: Continued sennosides [senna] 8.6 mg Tablet 8.6 mg PO HS PRN (Reason: Constipation) RF: 0 prednisone 5 mg Tablet 5 mg PO DAILY RF: 0 ondansetron HCl [Zofran] 8 mg Tablet 8 mg PO Q8H PRN (Reason: Nausea) RF: 0 nitroglycerin 0.4 mg Tablet, Sublingual 0.4 mg sublingual DIRECTED RF: 0 metoprolol succinate 25 mg Tablet Extended Release 24 Hr 25 mg PO DAILY RF: 0 metformin 1,000 mg Tablet 1,000 mg PO BID RF: 0 ketoconazole 2 % Shampoo 2 % TOPICAL DIRECTED RF: 0 cholecalciferol (vitamin D3) [Vitamin D3] 1,000 unit Capsule PO DAILY RF: 0 cetirizine [Zyrtec] 10 mg Tablet 10 mg PO DAILY PRN (Reason: Allergy Symptoms) RF: 0 calcium carbonate-vit D3-min 600 mg calcium- 200 unit Tablet 1 tab PO DAILY RF: 0 atorvastatin 10 mg Tablet 10 mg PO DAILY RF: 0 aspirin 81 mg Tablet,Delayed Release (Dr/Ec) 81 mg PO DAILY RF: 0 allopurinol 100 mg Tablet 100 mg PO DAILY RF: 0 acetaminophen 325 mg Tablet 325 mg PO Q4H PRN (Reason: Pain) RF: 0 Lantus U-100 Insulin 100 unit/mL Solution 10 unit SUBCUT HS RF: 0 insulin lispro [Humalog KwikPen Insulin] 100 unit/mL Insulin Pen 5 unit SUBCUT AC RF: 0 Stand-Alone Forms: My [facility]/Other Patient Handouts: Oncology Infecs Prevent Discharge Orders: Discharge Order (Routine); Ordered 03/30/19 Ordered By: Roberta Burch Admission Data Admit Date/Time: 03/29/19 02:51 Attending Provider: Mateo Del Valle Admit Provider: Dom Tafoya Primary Care Provider: Gil Ambrose Other Providers: Dom Tafoya ; Riley Jo V Service: Medical Other Interventions: Discharge Summary Assessment (RN) Last Done: 03/30/19 12:22 DC Date/Time DO NOT enter until pt leaves facility: 03/30/19 13:54 Supervising Physician Co-Signing Physician Notes I personally examined the patient and verified all sawyer points of history and exam, discussed case, and agree with decision making with Dr Burch. continues to feel much better. no evolution of sx to suggest bacterial infection, cultures still negative Vitals noted, in general he is awake and alert pleasant no distress. HEENT normocephalic atraumatic mucous members moist. Breathing unlabored no accessory muscle use good effort. Skin shows no rashes no pallor or icterus. Neuro shows no focal deficits. Fever in the context of chemotherapyhe is much improved and stable for home. on review of literature as well as in his context, abx do not appear necessary or warranted. possible metabolic encephalopathy present on admission now resolved related to chemo vs dehydration vs transient bacteremia (as discussed by heme/onc - who also noted no treatment necessary for this) now resolved. safe for home. red flags outlined. dtr present as well and all questions answered to the best of my ability. handwashing discussed. otherwise as above Resident Activity Tracking Resident Involvement: Resident Care Provided Care Provided: Adult Hospital Medicine
== END 2019-03-30 13:54 | disposition home or self-care (01) | DRG 871 ==
LOC: ED 21:38 → SUATTDRO 03-29 02:51 → 4E 03-29 02:51

== ENCOUNTER 2019-04-26 19:21 | Inpatient (IN) ==
[2019-04-26] MEDS ORDERED: SODIUM CHLORIDE 0.9% 1000ML 1,000 ML IV ONE ×2 (19:33→20:47)
[2019-04-26] MEDS ORDERED: ACETAMINOPHEN 325 MG TAB PO STA (19:36)
[2019-04-26] MEDS ORDERED: CEFEPIME 2,000 MG in SYRINGE 7.5 ML IV STA (19:38)
[2019-04-26 19:48] LABS: Hematocrit (blood only) 32.1 % (42-52); Hemoglobin 10.3 g/dL (14.0-18.0); Mean Corpuscular Hgb Conc 32.1 g/dL (32-36); Mean Corpuscular Volume 93.6 fL (80-100); RDW Coefficient of Variation 19.5 % (11.5-14.5); RDW Standard Deviation 66.2 fL (36.4-46.3); Red Blood Count 3.43 M/uL (4.7-6.1); White Blood Count 6.24 K/uL (4.8-10.8)
--- NOTE | 2019-04-26 19:48 | Emergency Department Note ---
Entered by Isabel Alas acting as a scribe for Andrew Allen MD History of Present Illness General Chief complaint: Fever Stated complaint: CONFUSION, WEAKNESS, FEVER Time Seen by Provider: 04/26/19 19:25 Source: patient and other (nurse) History of Present Illness Provider complaint: fever Pain Consistency: + other (episode) Quality: + other (fever 102 F) Associated symptoms: + denies other symptoms (dysuris, hematuria, pain and swelling in legs); no cough and no headaches The patient is an 83 year old male with PMHx of pancreatic cancer who presents to the ED with complaints of an episode of a fever. Per EMS, the patient was confused upon arrival and had a fever of 102 F. The patient denies cough, headache, dysuria, hematuria, as well as pain and swelling in his legs. HPI and ROS limited secondary to altered mental status. Home Medications Home Medications Medication Instructions Recorded Confirmed Type Lantus U-100 Insulin 10 unit SUBCUT HS 03/29/19 04/26/19 History acetaminophen 325 mg PO Q4H PRN 03/29/19 04/26/19 History allopurinol 100 mg PO DAILY 03/29/19 04/26/19 History aspirin 81 mg PO DAILY 03/29/19 04/26/19 History atorvastatin 10 mg PO DAILY 03/29/19 04/26/19 History calcium carbonate-vit D3-min 1 tab PO DAILY 03/29/19 04/26/19 History cetirizine [Zyrtec] 10 mg PO DAILY PRN 03/29/19 04/26/19 History cholecalciferol (vitamin D3) 0 unit PO DAILY 03/29/19 04/26/19 History [Vitamin D3] insulin lispro [Humalog KwikPen 5 unit SUBCUT AC 03/29/19 04/26/19 History Insulin] ketoconazole 2 % TOPICAL DIRECTED 03/29/19 04/26/19 History metformin 1,000 mg PO BID 03/29/19 04/26/19 History metoprolol succinate 12.5 mg PO DAILY 03/29/19 04/26/19 History nitroglycerin 0.4 mg SUBLINGUAL DIRECTED PRN 03/29/19 04/26/19 History ondansetron HCl [Zofran] 8 mg PO Q8H PRN 03/29/19 04/26/19 History prednisone 5 mg PO DAILY 03/29/19 04/26/19 History sennosides [senna] 8.6 mg PO HS PRN 03/29/19 04/26/19 History ibuprofen 100 mg PO DAILY PRN 04/26/19 04/26/19 History Allergies Allergy/AdvReac Type Severity Reaction Status Date / Time amoxicillin Allergy Intermediate ITCHINESS,R Verified 04/26/19 20:11 JORGE L Penicillins Allergy Intermediate ITCHINESS, Verified 04/26/19 20:11 rash Past Med/Surg History Medical History Pancreatic cancer (Chronic) Social History Preferred Language: Polish Communication Ability: Effective Social Work Program Coordinator Required: No Beliefs That Will Affect Care: None Current Living Situation: Family Other Information That Helps Us Care for You: No Feels Safe at Home: Yes Safety Concerns: Feels Safe At This Time Smoking Status: Never smoker Second Hand Exposure: No ; Hx Alcohol Use: No Hx Substance Use: No Review of Systems See HPI for pertinent positives & negatives. HPI and ROS limited secondary to altered mental status. Physical Exam Vital Signs Vital Signs - 24 hr 04/26/19 19:24 04/26/19 19:28 04/26/19 19:30 Temperature 38.4 C H Temperature Source Oral Sepsis Recent Fever Within 48 Hours Yes Sepsis New/Unexplained Change in Mental Status Yes Sepsis Action Taken by Nursing No Action Required Pulse Rate 111 H 110 H Pulse Rate from SpO2 Sensor 111 H 110 H Respiratory Rate 20 25 H 35 H Respiratory Effort / Characteristics Non-Labored Respiratory Depth Normal Blood Pressure 149/79 H 149/79 H Blood Pressure Mean 102 102 Pulse Oximetry 93 93 92 Oxygen Delivery Method Room Air 04/26/19 20:00 04/26/19 20:30 04/26/19 21:00 Temperature 37.0 C Temperature Source Sepsis Recent Fever Within 48 Hours Sepsis New/Unexplained Change in Mental Status Sepsis Action Taken by Nursing Pulse Rate 106 H 100 H 96 H Pulse Rate from SpO2 Sensor 106 H 101 H 96 H Respiratory Rate 26 H 21 22 Respiratory Effort / Characteristics Respiratory Depth Blood Pressure 111/51 L Blood Pressure Mean 71 Pulse Oximetry 91 92 93 Oxygen Delivery Method 04/26/19 21:27 04/26/19 21:30 04/26/19 22:00 Temperature Temperature Source Sepsis Recent Fever Within 48 Hours Sepsis New/Unexplained Change in Mental Status Sepsis Action Taken by Nursing Pulse Rate 98 H 96 H 91 H Pulse Rate from SpO2 Sensor 97 H 98 H 91 H Respiratory Rate 25 H 20 19 Respiratory Effort / Characteristics Respiratory Depth Blood Pressure 111/55 L 100/56 L Blood Pressure Mean 73 70 Pulse Oximetry 95 94 94 Oxygen Delivery Method 04/26/19 22:01 Temperature Temperature Source Sepsis Recent Fever Within 48 Hours Sepsis New/Unexplained Change in Mental Status Sepsis Action Taken by Nursing Pulse Rate 93 H Pulse Rate from SpO2 Sensor 92 H Respiratory Rate 27 H Respiratory Effort / Characteristics Respiratory Depth Blood Pressure Blood Pressure Mean Pulse Oximetry 94 Oxygen Delivery Method General: Non-ill appearing older male in no acute distress. Alert and oriented to person and place but not date. Occasional cough, answers questions appropriately. HEENT: Normal cephalic atraumatic. Pupils are equal round and reactive to light. Extraocular movements are intact. Oropharynx is pink with moist mucous membranes. No swelling of the mouth lips or tongue. Neck: Supple with a midline trachea. No meningeal signs or stiffness, no JVD or bruits. No Stridor. Chest: Port in left chest. Clear to auscultation bilaterally. No wheezes or rhonchi. No increased work of breathing. Heart: regular rate and rhythm. Abdomen: Soft nontender, nondistended without rebound guarding or rigidity. Extremities: No cyanosis clubbing or edema. No calf tenderness or asymmetry Spine/Back. Non tender to palpation. No CVA tenderness Skin: Good turgor without rashes. Neurologic exam: Cranial nerves two through 12 are intact. Motor and sensation are intact and symmetrical throughout. Course 192: Past medical records reviewed. The patient was evaluated in room C4. A complete history and physical exam was performed. 2020: I spoke with the patient's family and they said that when the patient did not show up for dinner, they went to look for him and found him incoherent laying on the couch. 2038: [facility] He will evaluate the patient for further management. 2050: I reevaluated the patient and his vitals are stable. Consultations Consultation #1: I discussed the patient's case with Dr. Kennedy [facility] Hospitalist. He will evaluate the patient for further management. Time: 20:39 Administered Medications Sodium Chloride (Nss 1000ml) 1,000 mls @ 125 mls/hr IV .Q8H SHIRA Stop: 05/26/19 23:39 Last Admin: 04/27/19 00:36 Dose: 125 mls/hr Documented by: [id number] Discontinued Medications Acetaminophen (Tylenol) 650 mg PO NOW STA Stop: 04/26/19 19:37 Last Admin: 04/26/19 20:00 Dose: 650 mg Documented by: [id number] Sodium Chloride (Nss 1000ml) 1,000 mls @ 999 mls/hr IV .Q1H1M ONE Stop: 04/26/19 20:33 Last Infusion: 04/26/19 21:15 Dose: 0 mls/hr Documented by: [id number] Admin: 04/26/19 20:00 Dose: 999 mls/hr Documented by: [id number] Cefepime HCl 2,000 mg/ Syringe 20 mls @ 5.5 mls/min IV NOW STA; Protocol Stop: 04/26/19 19:41 Last Admin: 04/26/19 20:00 Dose: 5.5 mls/min Documented by: [id number] Sodium Chloride (Nss 1000ml) 1,000 mls @ 999 mls/hr IV .Q1H1M ONE Stop: 04/26/19 21:47 Last Infusion: 04/27/19 00:30 Dose: 0 mls/hr Documented by: [id number] Admin: 04/26/19 20:59 Dose: 999 mls/hr Documented by: [id number] Medical Decision Making Differential Diagnosis Differentials include sepsis, pneumonia, UTI, neutropenia, cancer related complications, electrolyte and metabolic abnormality. Medical Records Attestation: I reviewed the patient's medical records. Home Medications Current Medication List: was personally reviewed by pa Laboratory Data Attestation: I reviewed the patient's lab results. Result diagrams: 04/26/19 19:38 04/26/19 19:38 Lab Results 04/26/19 04/26/19 04/26/19 Range/Units 19:38 19:38 19:38 WBC 6.24 (4.8-10.8) K/uL RBC 3.43 L (4.7-6.1) M/uL Hgb 10.3 L (14.0-18.0) g/dL Hct 32.1 L (42-52) % MCV 93.6 (80-100) fL MCH 30.0 (25-34) pg MCHC 32.1 (32-36) g/dL RDW Std Deviation 66.2 H (36.4-46.3) fL RDW Coeff of Lefty 19.5 H (11.5-14.5) % Plt Count 75 L (130-400) K/uL MPV 10.4 (7.4-10.4) fL Immature Gran % (Auto) 0.2 % Neut % (Auto) 96.8 % Lymph % (Auto) 2.2 % [place] % (Auto) 0.6 % Eos % (Auto) 0.2 % Baso % (Auto) 0.0 % Immature Gran # (Auto) 0.01 (0.00-0.02) K/uL Neut # (Auto) 6.04 (1.4-6.5) K/uL Lymph # (Auto) 0.14 L (1.2-3.4) K/uL [place] # (Auto) 0.04 L (0.11-0.59) K/uL Eos # (Auto) 0.01 (0-0.5) K/uL Baso # (Auto) 0.00 (0-0.2) K/uL Platelet Estimate Decreased L (Normal) Ovalocytes 1+ PT 12.0 (9.0-12.0) Seconds INR 1.2 H (0.9-1.1) APTT 20.9 L (21.0-31.0) Seconds PTT Ratio 0.8 Sodium 139 (136-145) mmol/L Potassium 4.3 (3.5-5.1) mmol/L Chloride 107 (98-107) mmol/L Carbon Dioxide 24 (21-32) mmol/L Anion Gap 9.0 (3-11) BUN 26 H (7-18) mg/dl Creatinine 1.20 (0.6-1.4) mg/dl Est Cr Clr Drug Dosing 48.3 ml/min Est GFR ( Amer) 65.3 Est GFR (Non-Af Amer) 56.4 BUN/Creatinine Ratio 21.5 H (10-20) Glucose 167 H (70-99) mg/dl Lactate (0.4-2.0) mmol/L Calcium 9.7 (8.5-10.1) mg/dl Total Bilirubin 1.9 H (0.2-1) mg/dl AST 115 H (15-37) U/L ALT 73 (12-78) U/L Alkaline Phosphatase 89 (45-117) U/L Total Protein 6.9 (6.4-8.2) gm/dl Albumin 3.6 (3.4-5.0) gm/dl Globulin 3.2 (2.5-4.0) gm/dl Albumin/Globulin Ratio 1.1 (0.9-2) Procalcitonin (0-0.5) ng/ml 04/26/19 04/26/19 Range/Units 19:38 19:55 WBC (4.8-10.8) K/uL RBC (4.7-6.1) M/uL Hgb (14.0-18.0) g/dL Hct (42-52) % MCV (80-100) fL MCH (25-34) pg MCHC (32-36) g/dL RDW Std Deviation (36.4-46.3) fL RDW Coeff of Lefty (11.5-14.5) % Plt Count (130-400) K/uL MPV (7.4-10.4) fL Immature Gran % (Auto) % Neut % (Auto) % Lymph % (Auto) % [place] % (Auto) % Eos % (Auto) % Baso % (Auto) % Immature Gran # (Auto) (0.00-0.02) K/uL Neut # (Auto) (1.4-6.5) K/uL Lymph # (Auto) (1.2-3.4) K/uL [place] # (Auto) (0.11-0.59) K/uL Eos # (Auto) (0-0.5) K/uL Baso # (Auto) (0-0.2) K/uL Platelet Estimate (Normal) Ovalocytes PT (9.0-12.0) Seconds INR (0.9-1.1) APTT (21.0-31.0) Seconds PTT Ratio Sodium (136-145) mmol/L Potassium (3.5-5.1) mmol/L Chloride (98-107) mmol/L Carbon Dioxide (21-32) mmol/L Anion Gap (3-11) BUN (7-18) mg/dl Creatinine (0.6-1.4) mg/dl Est Cr Clr Drug Dosing ml/min Est GFR ( Amer) Est GFR (Non-Af Amer) BUN/Creatinine Ratio (10-20) Glucose (70-99) mg/dl Lactate 3.0 H* (0.4-2.0) mmol/L Calcium (8.5-10.1) mg/dl Total Bilirubin (0.2-1) mg/dl AST (15-37) U/L ALT (12-78) U/L Alkaline Phosphatase (45-117) U/L Total Protein (6.4-8.2) gm/dl Albumin (3.4-5.0) gm/dl Globulin (2.5-4.0) gm/dl Albumin/Globulin Ratio (0.9-2) Procalcitonin 0.68 H (0-0.5) ng/ml Imaging Data Radiologist's Impression: Radiology results as stated below per my review and t he radiologist's interpretation: SINGLE VIEW CHEST CLINICAL HISTORY: Sepsis. FINDINGS: An AP, portable, upright chest radiograph is compared to study dated 03/28/2019 and correlated with chest CT dated 09/25/2018. The examination is degraded by portable technique and patient rotation. A left subclavian central venous infusion port is unchanged in position. The heart is enlarged and there is atherosclerotic calcification of the thoracic aorta. The pulmonary vasculature is noncongested. There is chronic elevation of the right hemidiaphragm and bibasilar atelectasis. No airspace consolidation or large pleural effusion is identified. No pneumothorax is seen. The skeletal structures are osteopenic. The bony thorax is grossly intact. IMPRESSION: Cardiomegaly with no acute cardiopulmonary abnormality. Electronically signed by: Giovani Robison M.D. 04/26/2019 8:36 PM ECG Data Attestation: I personally reviewed and interpreted this ECG as follows: Indication: other (electrolyte abnormality) Rate (beats per minute): 109 Rhythm: sinus tachycardia Findings: + other (poor baseline); no PAC, no PVC, no ST depression, no ST elevation, no acute ischemic change and no ectopy Comparison ECG Date: from (09/23/2017) Change: the following changes noted (rate increased) Blood Pressure Blood Pressure Findings: Elevated blood pressure Blood Pressure Disposition: further management by hospitalist SHANTEL Narrative This patient comes in as described above. He is on chemotherapy for pancreatic cancer and developed a fever and some confusion he does live alone. He does have a port in the left chest. He is coughing occasionally. He is normotensive but does have a fever. IV access established and he was hydrated with IV normal saline bolus. I did order sepsis order set/protocols. Chest x-ray was obtained as well as urinalysis and culture was ordered and multiple blood testing as well as an EKG. he was reassessed frequently. Blood cultures were obtained as well as lactic acid and procalcitonin. I reviewed his old records and he had cefepime the last time he was and apparently did well. He was given 2 g IV of cefepime for broad-spectrum antibiotic coverage. His white blood count was normal however his lactic acid was 3. In light of this I did give him a second IV normal saline bolus. Chest x-ray was clear. Urinalysis is pending. EKG does not suggest acute coronary syndrome or arrhythmia. I do think he needs to be admitted/observed for further inpatient treatment and evaluation of consult with Dr. Hawkins's team to see the patient in the ER for these measures. Impression & Plan Sepsis, Pancreatic cancer Critical Care Time Critical Care Time: Yes Total Critical Care Time: 30 I have personally spent greater than 30 minutes of critical care time in the direct management of this patient. This includes bedside care, interpretation of diagnostic studies, and testing, discussion with consultants, patient, and family members, and other required patient management activities. This 30 minutes is in excess of all separately billable procedures. Discharge Plan Visit Data *Final* Discharge Date/Time: 04/26/19 23:20 Chief Complaint: Fever Stated Complaint: CONFUSION, WEAKNESS, FEVER ED Provider: Andrew Allen Discharge Problem: Sepsis, Pancreatic cancer Patient Disposition: Admitted As Inpatient Discharge Instructions Interventions: ED Discharge Assessment Last Done: 04/26/19 23:20 Discharge Problem: Sepsis Qualifiers: Sepsis type: sepsis due to unspecified organism Sepsis acute organ dysfunction status: unspecified Qualified Code(s): A41.9 - Sepsis, unspecified organism Pancreatic cancer Qualifiers: Pancreatic malignancy location: unspecified Qualified Code(s): C25.9 - Malignant neoplasm of pancreas, unspecified The scribe's documentation has been prepared under my direction and personally reviewed by me in its entirety. I confirm that the note above accurately reflects all work, treatment, procedures, and medical decision making performed by me.
[2019-04-26 19:59] LABS: INR 1.2 (0.9-1.1); Partial Thromboplastin Ratio 0.8; Partial Thromboplastin Time 20.9 Seconds (21.0-31.0)
[2019-04-26 20:05] LABS: Albumin Level 3.6 gm/dl (3.4-5.0); BUN Creatinine Ratio 21.5 (10-20); Calcium 9.7 mg/dl (8.5-10.1); Creatinine Clr Calc Pharmacy 48.3 ml/min; Est GFR (African American) 65.3; Est GFR (Non-African American) 56.4; Potassium 4.3 mmol/L (3.5-5.1)
[2019-04-26 20:10] LABS: Eosinophils # (auto) 0.01 K/uL (0-0.5); Eosinophils % (auto) 0.2 %; Immature Granulocytes # (auto) 0.01 K/uL (0.00-0.02); Immature Granulocytes % (auto) 0.2 %; Lymphocytes # (auto) 0.14 K/uL (1.2-3.4); Lymphocytes % (auto) 2.2 %; Mean Platelet Volume 10.4 fL (7.4-10.4); Monocytes # (auto) 0.04 K/uL (0.11-0.59); Monocytes % (auto) 0.6 %; Neutrophils # (auto) 6.04 K/uL (1.4-6.5); Neutrophils % (auto) 96.8 %; Ovalocytes 1+; Platelet Count 75 K/uL (130-400); Platelet Estimate Decreased (Normal)
[2019-04-26 20:19] LABS: Albumin Globulin Ratio 1.1 (0.9-2); Bilirubin,Total 1.9 mg/dl (0.2-1); Globulin 3.2 gm/dl (2.5-4.0); Total Protein 6.9 gm/dl (6.4-8.2)
--- NOTE | 2019-04-26 20:39 | XRay Report ---
SINGLE VIEW CHEST CLINICAL HISTORY: Sepsis. FINDINGS: An AP, portable, upright chest radiograph is compared to study dated 03/28/2019 and correlat ed with chest CT dated 09/25/2018. The examination is degraded by portable technique and patient rotati on. A left subclavian central venous infusion port is unchanged in position. The heart is enlarged an d there is atherosclerotic calcification of the thoracic aorta. The pulmonary vasculature is nonconge sted. There is chronic elevation of the right hemidiaphragm and bibasilar atelectasis. No airspace co nsolidation or large pleural effusion is identified. No pneumothorax is seen. The skeletal structures are osteopenic. The bony thorax is grossly intact. IMPRESSION: Cardiomegaly with no acute cardiopulmonary abnormality. Electronically signed by: Giovani Robison M.D. 04/26/2019 8:36 PM
--- NOTE | 2019-04-26 21:45 | History & Physical Report ---
Date of Service April 26, 2019 Assessment & Plan (1) Fever: Pt is a 83yo M H coronary artery disease status post stent placement a number of years ago, thrombocytopenia, prostate cancer in remission, gout, diabetes, metastatic pancreatic cancer currently 2 days status post chemotherapy (04/26). Acute febrile illness Given that this is a second presentation status post chemotherapy and is almost identical to previous presentation his fever and illness are most likely secondary to gemcitabine -Monitor for signs and symptoms of acute infection -Follow-up cultures -Empiric therapy with cefepime -Admit to MedSurg telemetry for further evaluation and monitoring Altered mental status -In setting of acute fever, recent chemo for metastatic pancreatic cancer. Similar presentation to last admission. Blood cultures and urine cultures obtained and pending, see above for ED course -Mental status improved upon presentation to the ED Pancreatic cancer -Appears stable over past 18 months, due for scans in April 2019 -Continue chemotherapy per oncology Diabetes mellitus Holding home metformin -glycemic consult placed Hypertension Patient has history of hypertension treated with metoprolol, will continue while hospitalized -Continue metoprolol succinate 12.5 mg p.o. daily Coronary artery disease Status post stent placement several years ago. -Continue atorvastatin -Continue PRN nitro Hyperlipidemia -Continue atorvastatin 10 mg daily. Chronic anemia -Hemoglobin 10.3 on admission laboratories. Stable from historical visits (- ) -Monitor Electrolyte abnormalities On admission patient's electrolytes are within normal limits, will obtain BMP, mag, phosphorus in the morning -Replete as indicated Thrombocytopenia -Likely associated with chemotherapy; monitor Gout -Continue allopurinol FENa: Regular diet Code Status: DNR/DNI DVT PPX: Lovenox Dispo: MedSurg telemetry History of Present Illness Primary Care Provider: Gil Ambrose MD Patient is a 83-year-old male with past medical history of coronary artery disease status post stent placement a number of years ago, thrombocytopenia, prostate cancer in remission, gout, diabetes, pancreatic cancer currently 2 days status post chemotherapy. Patient sitting upright in bed, in no acute distress, with his family at the bedside. Patient's family state he was in his usual state of health until sometime after 9:30 AM this morning. He received chemotherapy infusion on Tuesday, tolerated the infusion well, and returned home with no acute symptoms. Patient continued to do well throughout the day Tuesday, in fact he went square dancing that night and returned home at 11 PM. He went to sleep Tuesday evening and was easily awoken by his granddaughter the following morning. He came to the family's house for breakfast, and left the house at about 930 this morning. The family reports receiving emails from him intermittently up until 1030. The family became concerned when he did not come to their house for dinner, they attempted to call him and he was not answering his phone. So they went to his house to check on him. This was appr oximately 6:30 PM. Where they found the patient slept on his couch, the patient's daughter obtained a oral temperature demonstrating a fever of 102 and gave him ibuprofen. They attempted to lift the patient and taken to the bathroom however he was not able to stand on his feet. At this point they made the decision to call EMS for transport to the hospital. He was evaluated in the ER, found to have a fever of 38.4. White count of 6.24, platelets 75, BMP within normal limits, lactate of 3, pro Janak of 0.68, negative chest x-ray, urine studies pending, blood cultures obtained. In the ED he was given 1 dose of cefepime, Tylenol, and 2 L of normal saline. The ED consulted the primary service for admission. The patient is similar episode to this approximately 1 month ago. He presented to the emergency department with altered mental status and fever approximately 1 day status post chemotherapy. He was admitted and received cefepime and made drastic improvement. His blood cultures remained negative, and he was subsequently discharged 2 days later without antibiotic therapy and did well. Of note I had a conversation with the patient regarding his penicillin allergy, he was labeled as penicillin allergic based upon an experience in the . He was diagnosed with strep throat and subsequently given a shot of penicillin in his but, this was painful and had associated redness. Several years later he came to the conclusion that this was an allergy. It does not appear as if he is truly penicillin allergic. Aside from presenting symptoms, the patient denies any fevers, chills, nausea, vomiting, change in bowel or bladder habits, change in vision, change in hearing, shortness of breath, chest pressure, chest pain, significant fatigue or weakness, or other concerning signs or symptoms of an acute infectious or disseminated infectious process. Allergies Allergy/AdvReac Type Severity Reaction Status Date / Time amoxicillin Allergy Intermediate ITCHINESS,R Verified 04/26/19 20:11 JORGE L Penicillins Allergy Intermediate ITCHINESS, Verified 04/26/19 20:11 rash Home Medications Home Medications Medication Instructions Recorded Confirmed Type Lantus U-100 Insulin 10 unit SUBCUT HS 03/29/19 04/26/19 History acetaminophen 325 mg PO Q4H PRN 03/29/19 04/26/19 History allopurinol 100 mg PO DAILY 03/29/19 04/26/19 History aspirin 81 mg PO DAILY 03/29/19 04/26/19 History atorvastatin 10 mg PO DAILY 03/29/19 04/26/19 History calcium carbonate-vit D3-min 1 tab PO DAILY 03/29/19 04/26/19 History cetirizine [Zyrtec] 10 mg PO DAILY PRN 03/29/19 04/26/19 History cholecalciferol (vitamin D3) 0 unit PO DAILY 03/29/19 04/26/19 History [Vitamin D3] insulin lispro [Humalog KwikPen 5 unit SUBCUT AC 03/29/19 04/26/19 History Insulin] ketoconazole 2 % TOPICAL DIRECTED 03/29/19 04/26/19 History metformin 1,000 mg PO BID 03/29/19 04/26/19 History metoprolol succinate 12.5 mg PO DAILY 03/29/19 04/26/19 History nitroglycerin 0.4 mg SUBLINGUAL DIRECTED PRN 03/29/19 04/26/19 History ondansetron HCl [Zofran] 8 mg PO Q8H PRN 03/29/19 04/26/19 History prednisone 5 mg PO DAILY 03/29/19 04/26/19 History sennosides [senna] 8.6 mg PO HS PRN 03/29/19 04/26/19 History ibuprofen 100 mg PO DAILY PRN 04/26/19 04/26/19 History Past Med/Surg History Medical History Pancreatic cancer (Chronic) Social History Preferred Language: [place] Communication Ability: Effective Commercial Credit Specialist Required: No Beliefs That Will Affect Care: None marital status: / Current Living Situation: Family Other Information That Helps Us Care for You: No Feels Safe at Home: Yes Safety Concerns: Feels Safe At This Time Smoking Status: Never smoker Second Hand Exposure: No ; Hx Alcohol Use: No Hx Substance Use: No Review of Systems Review of Systems: All systems reviewed & are unremarkable except as noted in HPI & below Physical Exam Physical Exam: General: Elderly gentleman in no acute distress HEENT: Normocephalic atraumatic Neck: Normal to visual inspection, negative JVD, trachea midline Cardiac: Regular rate and rhythm, borderline tachycardia, murmur present unable to characterize further, negative calf tenderness, negative pedal edema Respiratory: Clear to auscultation bilaterally, no wheezes, rales, rhonchi GI: Normal bowel sounds, soft, nontender, nondistended MSK: Moves all extremities Skin: No new rashes Neuro: Alert and oriented although appears to have an element of baseline dementia Psych: Calm and cooperative Results & Data Vital Signs (Past 12 Hours) Vital Signs Temp Pulse Resp BP Pulse Ox 04/26/19 21:00 37.0 C 96 H 22 111/51 L 93 04/26/19 20:30 100 H 21 92 04/26/19 20:00 106 H 26 H 91 04/26/19 19:30 110 H 35 H 92 04/26/19 19:28 111 H 25 H 149/79 H 93 04/26/19 19:24 38.4 C H 20 149/79 H 93 Code Status & VTE Plan Code Status DNR/I VTE Prophylaxis Plan VTE Prophylaxis will be ordered: Yes Supervising Physician Co-Signing Physician Notes Attending addendum: I have physically seen this patient, have supervised the medical residents activities, and agree with the H&P unless as otherwise noted. Assessment and Plan: Acute febrile illness/post chemotherapy- Cover empirically with Vanco and cefepime due to presence of port. Follow central and peripheral cultures. Altered mental status improving with early rehydration. Continue IV fluids and other supportive treatment. Diabetes mellitus-hold metformin. Placed on Accu-Cheks before meals and at bedtime with NovoLog coverage per scale. Remainder of orders and notations as noted. PG Care Time/CCT Total # of Minutes Spent Total Time Spent with Patient: Total time spent is greater than 50% in coordination of care (as documented) at patient's floor/unit and/or counseling patient: Resident Activity Tracking Resident Involvement: Resident Care Provided Care Provided: Adult Hospital Medicine (1) Fever Fever type: unspecified Qualified Code(s): R50.9 - Fever, unspecified
[2019-04-26] MEDS ORDERED: MAGNESIUM HYDROXIDE SUSP 30 ML UDC PO PRN (23:40)
[2019-04-26] MEDS ORDERED: SENNA 8.6 MG TAB PO PRN (23:40)
[2019-04-26] MEDS ORDERED: ZOLPIDEM TARTRATE 5 MG TAB PO PRN (23:40)
[2019-04-26] MEDS ORDERED: ONDANSETRON 8 MG TABLET PO PRN (23:40)
[2019-04-26] MEDS ORDERED: ONDANSETRON INJ 2 MG/ML 2 ML VIAL IV PRN (23:40)
[2019-04-26] MEDS ORDERED: NITROGLYCERIN SL 0.4 MG/TAB TAB SL PRN (23:40)
[2019-04-26] MEDS ORDERED: CETIRIZINE HCL 10 MG TABLET PO PRN (23:40)
[2019-04-26] MEDS ORDERED: KETOCONAZOLE 2% TOP SCH (23:40)
[2019-04-26] MEDS ORDERED: ALUMINUM/MAGNESIUM SUSP 30 ML UDC PO PRN (23:40)
[2019-04-26] MEDS ORDERED: IBUPROFEN 100 MG/5 ML UDP PO PRN (23:40)
[2019-04-26] MEDS ORDERED: ACETAMINOPHEN 325 MG TAB PO PRN ×2 (23:40)
[2019-04-27] MEDS ORDERED: PHARMACY GLYCEMIC MGMT CONSULT PRN (00:18)
[2019-04-27] MEDS: SODIUM CHLORIDE 0.9% 1000ML 1,000 ML IV SCH ×3 (00:36→16:41)
[2019-04-27 00:52] LABS: Appearance Urine Clear (Clear); Bacteria Urine Automated Negative (Negative); Bilirubin Urine Negative (Negative); Blood Urine Negative (Negative); Color Urine Dark Yellow; Glucose Urine UA Negative (Negative); Ketones Urine Trace (Negative); Leukocyte Esterase Urine Trace (Negative); Nitrite Urine Negative (Negative); Protein Urine Trace (Negative); RBC Urine Automated 0-4 /hpf (0-4); Specific Gravity Urine 1.018 (1.000-1.030); Urobilinogen Urine Negative (Negative); pH Urine 5.5 (4.5-7.5)
[2019-04-27] MEDS ORDERED: VANCOMYCIN CONSULT ACTIVE PRN ×2 (01:18→01:20)
[2019-04-27] MEDS ORDERED: VANCOMYCIN HCL 1,750 MG in SODIUM CHLORIDE 0.9% 500 ML IV ONE (02:00)
--- NOTE | 2019-04-27 04:11 | Pharmacy Report ---
Pharmacy Glycemic Short Note 2 - Date of Service April 27, 2019 - Glycemic Short BSG Results (Last 24 hours): 04/26/19 04/27/19 19:38 01:00 Glucose 167 H POC Glucose 174 H OUTPATIENT ANTIDIABETIC REGIMEN: * Lantus 10 units sq qHS * Humalog 5 units sq AC * Aic 6.3% from 04/24/19 PLAN FOR INPATIENT GLYCEMIC CONTROL: * Continue home Basal insulin * Lantus 10 units SQ qAM * Bolus insulin * NovoLog per scale ACHS or Q6hrs while NPO * Goal Range: Low 120 mg/dL - High 160 mg/dL * Correction Factor: 30 mg/dL/unit * Nutritional / Prandial insulin per carb ratio of 1 unit per 8 grams CHO consumed PLAN FOR DISCHARGE: * Resume home insulins listed above
--- NOTE | 2019-04-27 05:39 | Pharmacy Report ---
Pharmacy Abx Dose Short Note - Date of Service April 27, 2019 - Assessment & Plan Assessment: 83 yo Male receiving VANC/CEFEPIME-IV for treatment of EMPIRIC INFECTION * Day # 1 of antimicrobial therapy. Pertinent PMH: PROSTATE/PANCREATIC CA, DM Plan: Vanc-IV: * Estimated pharmacokinetics: Vd~0.7 L/kg, Ke~0.0442 hr-1, T 1/2~15.5 hrs * LOADING DOSE: VANC 1750mg (~20mg/kg) IV x 1, then * MAINTENANCE DOSE: VANC 1250mg (~15mg/kg) IV q 18hours. * Goal trough level: ~15 mcg/mL * VANC Trough @ Css PRIOR TO 4TH DOSE (IF STILL ON VANC-IV--EMPIRIC INDICATION) CEFEPIME: TARGET: 2 grams IV q12h Ordered 2g IV q24h for est GFR 30-60mL/min, Pharmacy will continue to follow and will adjust dose/frequency as necessary. Thank you.
[2019-04-27] MEDS: ENOXAPARIN INJ 40 MG/0.4 ML SYR SQ SCH (05:48)
[2019-04-27] MEDS ORDERED: INSULIN GLARGINE SOLOSTAR 100 UNITS/ML 3 ML PEN SC ONE (07:30)
[2019-04-27 07:44] LABS: Hematocrit (blood only) 26.7 % (42-52); Hemoglobin 8.6 g/dL (14.0-18.0); Mean Corpuscular Hemoglobin 30.9 pg (25-34); Mean Corpuscular Hgb Conc 32.2 g/dL (32-36); RDW Coefficient of Variation 19.5 % (11.5-14.5); RDW Standard Deviation 67.8 fL (36.4-46.3); Red Blood Count 2.78 M/uL (4.7-6.1); White Blood Count 6.16 K/uL (4.8-10.8)
[2019-04-27 07:53] LABS: Mean Platelet Volume 10.1 fL (7.4-10.4); Platelet Count 60 K/uL (130-400)
[2019-04-27 08:09] LABS: Anisocytosis Present; Basophils # (auto) 0.01 K/uL (0-0.2); Basophils % (auto) 0.2 %; Eosinophils # (auto) 0.04 K/uL (0-0.5); Eosinophils % (auto) 0.6 %; Immature Granulocytes # (auto) 0.02 K/uL (0.00-0.02); Immature Granulocytes % (auto) 0.3 %; Lymphocytes # (auto) 0.75 K/uL (1.2-3.4); Lymphocytes % (auto) 12.2 %; Monocytes # (auto) 0.11 K/uL (0.11-0.59); Monocytes % (auto) 1.8 %; Neutrophils # (auto) 5.23 K/uL (1.4-6.5); Neutrophils % (auto) 84.9 %; Ovalocytes 1+; Tear Drop Cells 1+
[2019-04-27 08:14] LABS: BUN Creatinine Ratio 29.1 (10-20); Calcium 8.2 mg/dl (8.5-10.1); Creatinine Clr Calc Pharmacy 75.7 ml/min; Est GFR (African American) 97.6; Est GFR (Non-African American) 84.2; Magnesium 1.7 mg/dl (1.8-2.4); Phosphorus 2.6 mg/dl (2.5-4.9); Potassium 4.3 mmol/L (3.5-5.1)
[2019-04-27] MEDS ORDERED: DEXTROSE 50% 50 ML SYRINGE IV PRN (08:15)
[2019-04-27] MEDS ORDERED: CARBOHYDRATES FOR HYPOGLYCEMIA PO PRN (08:15)
[2019-04-27] MEDS ORDERED: GLUCAGON FOR INJ 1 MG VIAL IM PRN (08:15)
[2019-04-27] MEDS ORDERED: GLUCOSE 40% GEL 15 GM TUBE PO PRN (08:15)
[2019-04-27] MEDS ORDERED: GLUCOSE 10 TABS/TUBE PO PRN (08:15)
[2019-04-27] MEDS: INSULIN ASPART 100 UNITS/ML 3 ML PEN SC SCH ×4 (08:55→20:25)
[2019-04-27] MEDS: METOPROLOL SUCC 25MG EXT REL TAB PO SCH (08:57)
[2019-04-27] MEDS: CHOLECALCIFEROL 1,000 UNITS TAB PO SCH (08:57)
[2019-04-27] MEDS: predniSONE 5 MG TAB PO SCH (08:58)
[2019-04-27] MEDS: POLYETHYLENE (MIRALAX) 17 GM PACK PO SCH (08:58)
[2019-04-27] MEDS: ATORVASTATIN 10 MG TAB PO SCH (08:58)
[2019-04-27] MEDS: ALLOPURINOL 100 MG TAB PO SCH (08:58)
[2019-04-27] MEDS: CALCIUM 600MG + VIT D 400 IU TAB PO SCH (08:58)
[2019-04-27] MEDS ORDERED: INSULIN GLARGINE SOLOSTAR 100 UNITS/ML 3 ML PEN SC SCH ×2 (09:00→23:59)
[2019-04-27] MEDS: ASPIRIN 81 MG ECTAB PO SCH (09:00)
[2019-04-27] MEDS: HEPARIN 100 UNIT/ML 5ML FLUSH FLUSH SCH (09:05)
--- NOTE | 2019-04-27 13:13 | Hospitalist Progress Note ---
Date of Service April 27, 2019 Assessment & Plan (1) Acute metabolic encephalopathy: Secondary to gram-negative bacteremia Significantly improved today (2) Sepsis due to Gram negative bacteria: Blood cultures on 04/26 turn positive No obvious sign of infection or symptoms suggestive of infection. Port appears to be noninfected, no discharge no erythema Patient complained of pain and both costovertebral angles, lower back pain Will order repeat blood cultures Order urine culture and UA, previous UA has white blood cells of 1-3 Stop vancomycin Continue cefepime Add lactobacillus Order CT scan abdomen and pelvis with contrast Present on Admission?: Yes (3) Pancreatic cancer: Currently on chemotherapy Continue chemotherapy as scheduled (4) Chronic anemia: Will order B12/folate acid/iron study (5) Hyperlipidemia: Stable continue home medication (6) Diabetes mellitus: Continue Lantus 10 units subcu daily Continue sliding scale (7) Bacteremia due to Gram-negative bacteria: Subjective Patient feeling much better Significant improvement The only complaint he has is lower back pain with pain in both costovertebral angle Review of Systems Review of Systems: Review of system Constitutional: No fever / no chills / no sweats / no weakness / no fatigue Eyes: no blurring of vision / no eye pain / no discharge / no redness ENT: no hearing loss / no epistaxis /no swallowing problems Respiratory: no cough / no wheezing / no SOB / no hemoptysis Cardiovascular: no Chest pain / no lower extremity edema / no palpitation Abdomen: no pain / no nausea / no vomiting / no constipation Musculoskeletal: no joint pain / no muscle pain / no joint swelling, lower back pain is positive Genitourinary: no dysuria / no incontinence / no urinary retention, some pain in both right and left costovertebral angles with some lower back pain Neurologic: no focal weakness / no numbness/tingling / no ataxia Psychiatric: no depression symptoms / no anxiety / no insomnia Endocrine: no excessive thirst / no excessive urination Hematologic: no abnormal bleeding / no bruising / no LN swelling Skin: No rash / no pallor Physical Exam Physical Exam: Physical examination General patient appears to be comfortable, not in acute distress HEENT: Atraumatic , normocephalic /no jaundice /no pallor /anicteric /no dry mucous membrane /normal external ear inspection Neck: Supple /no swelling /central trach Heart: S1/S2 normal/regular rate and rhythm/no gallop /no rub /no murmur Lungs: Clear to auscultation bilaterally/normal chest with expansion/no rhonchi/no rales/no wheezing/no use of accessory muscles of respiration Abdomen: Soft/nontender/no guarding/no rebound/no organomegaly/no pulsatile mass Musculoskeletal: No swelling/no edema/no tenderness/normal range of motion Neuro exam: Awake alert oriented 3/cranial nerves II through XII appear to be intact/sensation intact/moves all extremities/no abnormal movements Psychiatric evaluation: No depressed mood/normal affect Skin: No rash on exposed skin area/no erythema Extremity: Normal pulse/no pitting edema/no clubbing or cyanosis Endocrine/lymphatic: No obvious lymphadenopathy /no lymphedema Port site appears to be noninfected, no discharge, no erythema Results & Data Vital Signs (Past 12 Hours) Vital Signs Temp Pulse Resp BP Pulse Ox 04/27/19 11:14 36.7 C 84 20 126/77 92 04/27/19 06:49 36.4 C L 61 19 133/72 98 04/27/19 03:02 36.5 C 66 19 122/74 97 PG Care Time/CCT Total # of Minutes Spent Total Time Spent with Patient: 35 minutes total time spent is greater than 50% in coordination of care (as documented) at patient's floor/unit and/or counseling patient/family discussion of care with nursing staff (1) Pancreatic cancer Pancreatic malignancy location: unspecified Qualified Code(s): C25.9 - Malignant neoplasm of pancreas, unspecified
[2019-04-27 13:28] LABS: Appearance Urine Clear (Clear); Bacteria Urine Automated Negative (Negative); Bilirubin Urine Negative (Negative); Blood Urine Trace (Negative); Color Urine Yellow; Glucose Urine UA Negative (Negative); Ketones Urine Negative (Negative); Leukocyte Esterase Urine Negative (Negative); Nitrite Urine Negative (Negative); Protein Urine Trace (Negative); RBC Urine Automated 0-4 /hpf (0-4); Specific Gravity Urine 1.018 (1.000-1.030); Urobilinogen Urine Negative (Negative); pH Urine 5.5 (4.5-7.5)
[2019-04-27] MEDS ORDERED: VANCOMYCIN HCL 1,250 MG in SODIUM CHLORIDE 0.9% 500 ML IV SCH ×2 (14:00→16:00)
[2019-04-27] MEDS ORDERED: VANCOMYCIN HCL 1,250 MG in SODIUM CHLORIDE 0.9% 250 ML IV SCH (14:00)
[2019-04-27] MEDS: CEFEPIME 2,000 MG in SYRINGE 7.5 ML IV SCH (15:33)
[2019-04-27] MEDS ORDERED: IOVERSOL 100ml IV PRN (15:39)
--- NOTE | 2019-04-27 16:10 | CT Scan Report ---
CT abd pelvis oral and IV con CLINICAL HISTORY: 83 years-old Male presenting with Gram-negative bacteremia, history of pancreatic c ancer. TECHNIQUE: Multidetector CT of the abdomen and pelvis was performed after the administration of oral and intravenous contrast. IV contrast: 95 mL of Optiray 320. One or more dose lowering techniques wer e used consistent with the principles of ALARA (as low as reasonably achievable), including automatic exposure control, mA or kV adjustment to individual patient size, and/or use of iterative reconstruc tion. COMPARISON: 03/29/2019. CT DOSE (mGy.cm): The estimated cumulative dose is 529.10 mGy.cm. FINDINGS: Dialysis Nurse topogram: Orthopedic hardware. Surgical clips in the pelvis likely indicates a history of prost atectomy. Cholecystectomy clips. A metallic common bile duct stent in place. Lung bases: Normal heart size. Coronary artery and aortic valve calcification. No pericardial or pleu ral effusion. Extensive bandlike opacities at the lung bases. Solid peripheral 10 mm nodule in the po sterior basal right lower lobe increased in size from prior, previously 7 mm (series 3 image 20). Joy id peripheral 7 mm nodule in the medial basal left lower lobe, previously 4 mm (series 3 image 6). Liver: Normal morphology.. Well-defined hypodense lesions unchanged from prior, possibly hepatic cyst s. Grossly patent hepatic vasculature. Biliary: Metallic common bile duct stent in place terminating in the duodenum. Expected pneumobilia. Moderate central predominant biliary ductal dilatation, which is not significant change from prior. D ebris within the stent is also unchanged from prior. Gallbladder surgically absent. Pancreas: Fullness of the pancreatic head relative to the severely atrophic parenchyma as on prior ex am consistent with the known underlying malignancy. Upstream pancreatic ductal dilatation as on prior exam. No peripancreatic inflammatory change. Spleen: Normal. Adrenal glands: Normal. Kidneys and ureters: Multiple bilateral nonobstructing renal calculi the largest at the lower poles. This is unchanged from prior. No hydronephrosis. Mild bilateral urothelial thickening. No ureteral ca lculi. Few cysts noted in the renal parenchyma. Bladder: Normal. Pelvic organs: Postsurgical changes of prostatectomy. No gross evidence of suspicious enhancement at the urethral anastomosis. Bowel: Diverticulosis of the sigmoid colon without wall thickening or pericolonic inflammatory change . Mild stool burden throughout normal caliber colon. The appendix is normal. No bowel obstruction. Un obstructed small bowel noted within a right inguinal hernia. Duodenal diverticulum in the horizontal portion. Peritoneal cavity: Focus of intermediate to low density along the serosa of the distal transverse col on as on prior exam (series 3 image 211) additional similar low density larger focus measuring approx imately 2 cm in the right lower quadrant in the region of the left inguinal canal unchanged from prio r. This may alternatively related to prior inguinal hernia repair. No free intraperitoneal fluid or g as. Lymph nodes: Multiple pathologically enlarged hyperenhancing lymph nodes in the peripancreatic region . An index node measures 13 mm in short axis, previously 13 mm (series 3 image 143). Vasculature: Atherosclerosis of the normal caliber abdominal aorta. IVC patent. Abdominal wall: Postsurgical changes of the M for umbilical abdominal wall. Gynecomastia noted. Musculoskeletal: Degenerative changes of the spine. Total right hip arthroplasty. Nonbridging mild he terotopic ossification along the right hip. Degenerative changes of the sacroiliac joints. No destruc tive osseous lesion. IMPRESSION: 1. Increased size (by 3 mm) of the bibasilar pulmonary nodules highly suspicious for metastatic dise ase. 2. Stable appearance of the pancreatic head mass with a metallic common bile duct stent in place. No change in the degree of in-stent debris or biliary ductal dilatation. 3. Peripancreatic lymphadenopathy presumably metastatic. 4. Stable minimal peritoneal foci. It is difficult to exclude peritoneal implants. Changes in the le ft inguinal region may alternatively relate to left inguinal hernia repair, although the smaller kiera toneal focus along the serosa of the distal transverse colon is indeterminate. Findings are unchanged from prior. 5. Diverticulosis coli. No evidence of diverticulitis. 6. Bilateral nephrolithiasis. 7. Bibasilar scarring and/or atelectasis. Electronically signed by: Jaret Garcia M.D. 04/27/2019 4:09 PM
[2019-04-27] MEDS: LACTOBACILLUS ACIDOPHILUS 1 GM PACK PO SCH (17:46)
[2019-04-27] MEDS ORDERED: CEFEPIME 2,000 MG in SYRINGE 7.5 ML IV SCH (18:00)
[2019-04-27] MEDS ORDERED: CEFEPIME CONSULT ACTIVE PRN (23:40)
[2019-04-28] MEDS: CEFEPIME 2,000 MG in SYRINGE 7.5 ML IV SCH ×2 (00:01→12:35)
[2019-04-28] MEDS: SODIUM CHLORIDE 0.9% 1000ML 1,000 ML IV SCH ×3 (00:07→15:51)
[2019-04-28 06:11] LABS: Hematocrit (blood only) 25.8 % (42-52); Hemoglobin 8.4 g/dL (14.0-18.0); Mean Corpuscular Hemoglobin 30.5 pg (25-34); Mean Corpuscular Hgb Conc 32.6 g/dL (32-36); Mean Corpuscular Volume 93.8 fL (80-100); RDW Coefficient of Variation 19.4 % (11.5-14.5); RDW Standard Deviation 66.2 fL (36.4-46.3); Red Blood Count 2.75 M/uL (4.7-6.1); White Blood Count 3.98 K/uL (4.8-10.8)
[2019-04-28] MEDS: ENOXAPARIN INJ 40 MG/0.4 ML SYR SQ SCH (06:13)
[2019-04-28 06:39] LABS: Basophils # (auto) 0.01 K/uL (0-0.2); Basophils % (auto) 0.3 %; Echinocytes 1+; Eosinophils # (auto) 0.11 K/uL (0-0.5); Eosinophils % (auto) 2.8 %; Immature Granulocytes # (auto) 0.01 K/uL (0.00-0.02); Immature Granulocytes % (auto) 0.3 %; Lymphocytes # (auto) 0.54 K/uL (1.2-3.4); Lymphocytes % (auto) 13.6 %; Mean Platelet Volume 13.1 fL (7.4-10.4); Monocytes # (auto) 0.09 K/uL (0.11-0.59); Monocytes % (auto) 2.3 %; Neutrophils # (auto) 3.22 K/uL (1.4-6.5); Neutrophils % (auto) 80.7 %; Platelet Count 67 K/uL (130-400); Poikilocytosis Present
[2019-04-28 06:48] LABS: Albumin Level 2.6 gm/dl (3.4-5.0); BUN Creatinine Ratio 23.7 (10-20); Calcium 8.1 mg/dl (8.5-10.1); Creatinine Clr Calc Pharmacy 74.4 ml/min; Est GFR (African American) 96.9; Est GFR (Non-African American) 83.6; Potassium 3.8 mmol/L (3.5-5.1)
[2019-04-28 06:53] LABS: Bilirubin,Total 0.8 mg/dl (0.2-1); Globulin 2.6 gm/dl (2.5-4.0); Total Protein 5.2 gm/dl (6.4-8.2)
[2019-04-28] MEDS: ATORVASTATIN 10 MG TAB PO SCH (08:16)
[2019-04-28] MEDS: LACTOBACILLUS ACIDOPHILUS 1 GM PACK PO SCH ×3 (08:16→17:28)
[2019-04-28] MEDS: ASPIRIN 81 MG ECTAB PO SCH (08:16)
[2019-04-28] MEDS: predniSONE 5 MG TAB PO SCH (08:16)
[2019-04-28] MEDS: POLYETHYLENE (MIRALAX) 17 GM PACK PO SCH (08:16)
[2019-04-28] MEDS: HEPARIN 100 UNIT/ML 5ML FLUSH FLUSH SCH (08:16)
[2019-04-28] MEDS: CALCIUM 600MG + VIT D 400 IU TAB PO SCH (08:16)
[2019-04-28] MEDS: ALLOPURINOL 100 MG TAB PO SCH (08:17)
[2019-04-28] MEDS: INSULIN ASPART 100 UNITS/ML 3 ML PEN SC SCH ×4 (08:17→21:07)
[2019-04-28] MEDS: METOPROLOL SUCC 25MG EXT REL TAB PO SCH (08:17)
[2019-04-28] MEDS: CHOLECALCIFEROL 1,000 UNITS TAB PO SCH (08:27)
--- NOTE | 2019-04-28 11:56 | Pharmacy Report ---
Glycemic Control Progress Note - Date of Service April 28, 2019 - Scope Glycemic Pharmacist consulted for glycemic control to write orders per [facility] inpatient glycemic control protocol. - Objective Accuchecks BSG(last 24 hours):: 04/27/19 04/27/19 04/28/19 16:42 20:08 05:38 Glucose 95 POC Glucose 92 141 H 04/28/19 04/28/19 07:09 11:20 Glucose POC Glucose 99 124 H - Recent Pertinent Medications The patient is currently receiving: * Basal insulin: Lantus 10 units every 24 hours * Correctional Insulin: Novolog Correction per scale ACHS Goal Range: Low 120 mg/dL - High 160 mg/dL Correction Factor: 30 mg/dL/unit * Prandial insulin: Per carb ratio of 1 unit per 10 grams CHO consumed - Outpatient Anti-Diabetic Meds Lantus 10 units HS plus 5 units of Novolog AC - Assessment & Plan ASSESSMENT: * See progress note from 04/27/19 for more background info, in short: * Pt receiving SQ basal bolus insulin regimen for hyperglycemia secondary to baseline DM (outpatient regimen on hold),stress/infection (on cefepime for bacteremia), and steroids (on home prednisone 5 mg daily). * Patient is currently receiving an average of 23 units of insulin per day * 10 units of basal insulin * 13 units of prandial/correctional insulin * BSGs ranging 92 - 141 mg/dl over the past 24hrs * Changes needed to insulin regimen: * AM Fasting BSG = 99 mg/dl. This is below goal range for patient based on inpatient targets and co-morbidities. The patient's Lantus dosing was slightly irregular this past day. In attempts to achieve HS dosing, the Lantus was given at 0730 and then again at midnight so the patient had small overlap. Lower dose of Lantus for tonight slightly to prevent any hypoglycemia from it. * Post-prandial BSGs are in range no change necessary. * Total daily dose = ~25 units. PLAN FOR INPATIENT GLYCEMIC CONTROL: * Decreasing Lantus to 8 units SQ HS * Continuing correction factor of 30 mg/dl/unit * Continuing carb ratio of 1 unit per 10 grams CHO consumed * Continuing goal range of Low 120 mg/dL - High 160 mg/dL RECOMMENDATIONS FOR DISCHARGE: * Patient's HbA1C well controlled. Continue current regimen. * Please note that the plan above was derived based on current level of insulin resistance and hospital stress. These recommendations are appropriate for inpatient admission only. Plan of care upon discharge will need to be reassessed to avoid potential outpatient hypo/hyperglycemia. Thank you.
--- NOTE | 2019-04-28 16:13 | Hospitalist Progress Note ---
Date of Service April 28, 2019 Assessment & Plan (1) Acute metabolic encephalopathy: Secondary to gram-negative bacteremia Significantly improved today (2) Sepsis due to Gram negative bacteria: Blood cultures on 04/26 turn positive, aerobic bottle for staph coagulase- negative, anaerobic bottle is for gram-negative rolan No obvious sign of infection or symptoms suggestive of infection. Port appears to be noninfected, no discharge no erythema Patient complained of pain and both costovertebral angles, lower back pain Repeat blood cultures are negative Repeat urine culture and UA, previous UA has white blood cells of 1-3 are all negative Stopped vancomycin Continue cefepime, awaiting sensitivity Add lactobacillus CT scan abdomen and pelvis with contrast was done on 04/27 and showed Increased size (by 3 mm) of the bibasilar pulmonary nodules highly suspicious for metastatic disease. Other than that the pancreatic mass and biliary stent with small peritoneal dots, possible implants are all stable from previous study (3) Pancreatic cancer: Currently on chemotherapy Continue chemotherapy as scheduled (4) Chronic anemia: Will order B12/folate acid/iron study (5) Hyperlipidemia: Stable continue home medication (6) Diabetes mellitus: Continue Lantus 10 units subcu daily Continue sliding scale (7) Bacteremia due to Gram-negative bacteria: Subjective Feeling much better, no new complaint Denies any pain Review of Systems Review of Systems: Review of system Constitutional: No fever / no chills / no sweats / no weakness / no fatigue Eyes: no blurring of vision / no eye pain / no discharge / no redness ENT: no hearing loss / no epistaxis /no swallowing problems Respiratory: no cough / no wheezing / no SOB / no hemoptysis Cardiovascular: no Chest pain / no lower extremity edema / no palpitation Abdomen: no pain / no nausea / no vomiting / no constipation Musculoskeletal: no joint pain / no muscle pain / no joint swelling Genitourinary: no dysuria / no incontinence / no urinary retention Neurologic: no focal weakness / no numbness/tingling / no ataxia Psychiatric: no depression symptoms / no anxiety / no insomnia Endocrine: no excessive thirst / no excessive urination Hematologic: no abnormal bleeding / no bruising / no LN swelling Skin: No rash / no pallor Physical Exam Physical Exam: Physical examination General patient appears to be comfortable, not in acute distress HEENT: Atraumatic , normocephalic /no jaundice /no pallor /anicteric /no dry mucous membrane /normal external ear inspection Neck: Supple /no swelling /central trach Heart: S1/S2 normal/regular rate and rhythm/no gallop /no rub /no murmur Lungs: Clear to auscultation bilaterally/normal chest with expansion/no rhonchi/no rales/no wheezing/no use of accessory muscles of respiration Abdomen: Soft/nontender/no guarding/no rebound/no organomegaly/no pulsatile mass Musculoskeletal: No swelling/no edema/no tenderness/normal range of motion Neuro exam: Awake alert oriented 3/cranial nerves II through XII appear to be intact/sensation intact/moves all extremities/no abnormal movements Psychiatric evaluation: No depressed mood/normal affect Skin: No rash on exposed skin area/no erythema Extremity: Normal pulse/no pitting edema/no clubbing or cyanosis Endocrine/lymphatic: No obvious lymphadenopathy /no lymphedema Results & Data Vital Signs (Past 12 Hours) Vital Signs Temp Pulse Pulse Resp BP BP Pulse Ox 04/28/19 15:06 36.7 C 69 18 146/80 H 95 04/28/19 11:48 36.6 C 71 19 162/73 H 96 04/28/19 09:28 62 04/28/19 09:00 80 04/28/19 06:45 36.7 C 63 19 159/74 H 98 04/28/19 04:26 36.8 C 73 18 162/79 H 97 PG Care Time/CCT Total # of Minutes Spent Total Time Spent with Patient: Total time spent is greater than 50% in coordination of care (as documented) at patient's floor/unit and/or counseling patient: (1) Pancreatic cancer Pancreatic malignancy location: unspecified Qualified Code(s): C25.9 - Malignant neoplasm of pancreas, unspecified
[2019-04-28 18:22] LABS: Ferritin 185.5 ng/ml (8-388)
[2019-04-28 18:23] LABS: Reticulocyte % < 0.5 % (0.5-2.0); Reticulocytes # < 0.02 10^6/uL (0.02-0.10)
[2019-04-28 18:45] LABS: Folate (Folic Acid) 11.91 ng/ml (>5.38)
[2019-04-28] MEDS ORDERED: INSULIN GLARGINE SOLOSTAR 100 UNITS/ML 3 ML PEN SC SCH (21:00)
[2019-04-29] MEDS: SODIUM CHLORIDE 0.9% 1000ML 1,000 ML IV SCH ×2 (00:50→08:21)
[2019-04-29] MEDS: CEFEPIME 2,000 MG in SYRINGE 7.5 ML IV SCH (00:51)
[2019-04-29] MEDS ORDERED: VANCOMYCIN TROUGH ONE (01:30)
[2019-04-29 05:42] LABS: Hematocrit (blood only) 24.7 % (42-52); Hemoglobin 8.2 g/dL (14.0-18.0); Mean Corpuscular Hemoglobin 31.1 pg (25-34); Mean Corpuscular Hgb Conc 33.2 g/dL (32-36); Mean Corpuscular Volume 93.6 fL (80-100); RDW Coefficient of Variation 19.3 % (11.5-14.5); RDW Standard Deviation 65.7 fL (36.4-46.3); Red Blood Count 2.64 M/uL (4.7-6.1); White Blood Count 3.71 K/uL (4.8-10.8)
[2019-04-29 06:00] LABS: Mean Platelet Volume 9.2 fL (7.4-10.4); Platelet Count 79 K/uL (130-400)
[2019-04-29 06:05] LABS: BUN Creatinine Ratio 26.2 (10-20); Calcium 7.8 mg/dl (8.5-10.1); Creatinine Clr Calc Pharmacy 90.5 ml/min; Est GFR (Non-African American) 90.6; Potassium 3.7 mmol/L (3.5-5.1)
[2019-04-29 06:24] LABS: Anisocytosis Present; Basophils # (auto) 0.02 K/uL (0-0.2); Basophils % (auto) 0.5 %; Eosinophils # (auto) 0.08 K/uL (0-0.5); Eosinophils % (auto) 2.2 %; Giant Platelets 1+; Immature Granulocytes # (auto) 0.02 K/uL (0.00-0.02); Immature Granulocytes % (auto) 0.5 %; Lymphocytes # (auto) 0.77 K/uL (1.2-3.4); Lymphocytes % (auto) 20.8 %; Monocytes % (auto) 5.4 %; Neutrophils # (auto) 2.62 K/uL (1.4-6.5); Neutrophils % (auto) 70.6 %; Ovalocytes 1+
[2019-04-29] MEDS: ENOXAPARIN INJ 40 MG/0.4 ML SYR SQ SCH (06:25)
[2019-04-29] MEDS: CHOLECALCIFEROL 1,000 UNITS TAB PO SCH (08:21)
[2019-04-29] MEDS: LACTOBACILLUS ACIDOPHILUS 1 GM PACK PO SCH ×3 (08:21→18:08)
[2019-04-29] MEDS: POLYETHYLENE (MIRALAX) 17 GM PACK PO SCH (08:21)
[2019-04-29] MEDS: HEPARIN 100 UNIT/ML 5ML FLUSH FLUSH SCH (08:21)
[2019-04-29] MEDS: METOPROLOL SUCC 25MG EXT REL TAB PO SCH (08:21)
[2019-04-29] MEDS: CALCIUM 600MG + VIT D 400 IU TAB PO SCH (08:21)
[2019-04-29] MEDS: ATORVASTATIN 10 MG TAB PO SCH (08:21)
[2019-04-29] MEDS: predniSONE 5 MG TAB PO SCH (08:21)
[2019-04-29] MEDS: ASPIRIN 81 MG ECTAB PO SCH (08:21)
[2019-04-29] MEDS: ALLOPURINOL 100 MG TAB PO SCH (08:21)
[2019-04-29] MEDS: INSULIN ASPART 100 UNITS/ML 3 ML PEN SC SCH ×3 (08:22→18:07)
[2019-04-29] MEDS ORDERED: cefTRIAXone SODIUM 2,000 MG in DEXTROSE 5% 50 ML IV SCH (12:00)
--- NOTE | 2019-04-29 17:02 | Discharge Summary ---
Date of Service April 29, 2019 Admission HPI Per Admitting Provider Patient is a 83-year-old male with past medical history of coronary artery disease status post stent placement a number of years ago, thrombocytopenia, prostate cancer in remission, gout, diabetes, pancreatic cancer currently 2 days status post chemotherapy. Patient sitting upright in bed, in no acute distress, with his family at the bedside. Patient's family state he was in his usual state of health until sometime after 9:30 AM this morning. He received chemotherapy infusion on Tuesday, tolerated the infusion well, and returned home with no acute symptoms. Patient continued to do well throughout the day We , in fact he went square dancing that night and returned home at 11 PM. He went to sleep Tuesday evening and was easily awoken by his granddaughter the following morning. He came to the family's house for breakfast, and left the house at about 930 this morning. The family reports receiving emails from him intermittently up until 1030. The family became concerned when he did not come to their house for dinner, they attempted to call him and he was not answering his phone. So they went to his house to check on him. This was approximately 6:30 PM. Where they found the patient slept on his couch, the patient's daughter obtained a oral temperature demonstrating a fever of 102 and gave him ibuprofen. They attempted to lift the patient and taken to the bathroom however he was not able to stand on his feet. At this point they made the decision to call EMS for transport to the hospital. He was evaluated in the ER, found to have a fever of 38.4. White count of 6.24, platelets 75, BMP within normal limits, lactate of 3, pro Janak of 0.68, negative chest x-ray, urine studies pending, blood cultures obtained. In the ED he was given 1 dose of cefepime, Tylenol, and 2 L of normal saline. The ED consulted the primary service for admission. The patient is similar episode to this approximately 1 month ago. He presented to the emergency department with altered mental status and fever approximately 1 day status post chemotherapy. He was admitted and received cefepime and made drastic improvement. His blood cultures remained negative, and he was subsequently discharged 2 days later without antibiotic therapy and did well. Of note I had a conversation with the patient regarding his penicillin allergy, he was labeled as penicillin allergic based upon an experience in the . He was diagnosed with strep throat and subsequently given a shot of penicillin in his but, this was painful and had associated redness. Several years later he came to the conclusion that this was an allergy. It does not appear as if he is truly penicillin allergic. Aside from presenting symptoms, the patient denies any fevers, chills, nausea, vomiting, change in bowel or bladder habits, change in vision, change in hearing, shortness of breath, chest pressure, chest pain, significant fatigue or weakness, or other concerning signs or symptoms of an acute infectious or disseminated infectious process. Principal Diagnosis Acute metabolic encephalopathy secondary to below Sepsis present on admission secondary to below UTI present on admission, with culture negative urine Gram-negative bacteremia secondary to UTI Staph coagulase-negative positive blood culture, likely contaminant Pancreatic cancer currently on chemotherapy Combined anemia of chronic diseases and B12 deficiency anemia Dyslipidemia Diabetes mellitus type 2 Discharge Exam Physical examination General patient appears to be comfortable, not in acute distress HEENT: Atraumatic , normocephalic /no jaundice /no pallor /anicteric /no dry mucous membrane /normal external ear inspection Neck: Supple /no swelling /central trach Heart: S1/S2 normal/regular rate and rhythm/no gallop /no rub /no murmur Lungs: Clear to auscultation bilaterally/normal chest with expansion/no rhonchi/no rales/no wheezing/no use of accessory muscles of respiration Abdomen: Soft/nontender/no guarding/no rebound/no organomegaly/no pulsatile mass Musculoskeletal: No swelling/no edema/no tenderness/normal range of motion Neuro exam: Awake alert oriented 3/cranial nerves II through XII appear to be intact/sensation intact/moves all extremities/no abnormal movements Psychiatric evaluation: No depressed mood/normal affect Skin: No rash on exposed skin area/no erythema Extremity: Normal pulse/no pitting edema/no clubbing or cyanosis Endocrine/lymphatic: No obvious lymphadenopathy /no lymphedema Discharge Data Allergies Allergy/AdvReac Type Severity Reaction Status Date / Time amoxicillin Allergy Intermediate ITCHINESS,R Verified 04/26/19 20:11 JORGE L Penicillins Allergy Intermediate ITCHINESS, Verified 04/26/19 20:11 rash Consultations 04/26/19 20:47 ED Decision to Admit Stat Ordered Studies 04/27/19 13:13 CT abd pelvis oral and IV con Urgent Hospital Course (1) Acute metabolic encephalopathy: On admission patient had acute metabolic encephalopathy secondary to severe sepsis. With treatment of sepsis as mentioned below it completely resolved. Currently patient is completely normal. (2) Sepsis due to Gram negative bacteria: Pansensitive Klebsiella grew in blood as mentioned below (3) Bacteremia due to Gram-negative bacteria: Blood culture 1 out of 4 was positive for staph coagulase-negative that was not treated and all subsequent cultures were negative, likely contaminant. Blood cultures 1 out of 4 on admission was positive for Klebsiella pneumonia pansensitive, likely source was patient UTI, unfortunately urine culture was obtained after starting the antibiotics and came back negative. Patient cleared his bacteremia fairly quickly Cultures from 04/[address] scan abdomen and pelvis with contrast did not show any hydronephrosis or perirenal abscess Patient will be treated for 14 days of oral antibiotics since first negative blood culture. 11 days left inpatient course, he will be given cefdinir 300 mg twice daily as patient has allergy to penicillin. Patient is instructed to have surveillance blood cultures 2 weeks after stopping the antibiotics, primary care physician will follow on that Port did not appear to be infected, no erythema, no discharge (4) Pancreatic cancer: Currently actively on chemotherapy (5) Chronic anemia: Anemia study showed combined anemia of chronic diseases plus B12 deficiency, patient B12 level was 283, folic acid and serum iron was within normal limits. Patient was started on B12 500 mcg orally daily. Instructed to recheck his B12 in about 2 months (6) Hyperlipidemia: Controlled continue home meds (7) Gout: Controlled he was continued on home (8) Diabetes mellitus: Controlled he was continued on home insulin and metformin Total Time Total Time Spent Total Time Spent (In Minutes): 35 minutes Total Time Includes: Examination of the Patient, Discharge Planning, Medication Reconciliation and Communication With Other Providers Discharge Plan Discharge Items Patient Disposition: Home - Self-Care Reason For Visit: FEVER Discharge Diagnosis: Acute metabolic encephalopathy secondary to below Sepsis present on admission secondary to below UTI present on admission, with culture negative urine Gram-negative bacteremia secondary to UTI Staph coagulase-negative positive blood culture, likely contaminant Pancreatic cancer currently on chemotherapy Combined anemia of chronic diseases and B12 deficiency anemia Dyslipidemia Diabetes mellitus type 2 Discharge Goals: Decrease discomfort, Improve disease control and Improve function Activity: Resume your previous activity Lifting: Gradually increase as tolerated Bathing: No limitations Sexual Activity: When tolerated Driving/Machine Use: Resume 3 days after discharge Non-emergency contact: Primary Care Provider Call non-emergency contact if: you have any medication questions, your symptoms worsen and you have a fever Follow-up/Referrals: Gil Ambrose MD [Primary Care Provider] - Diet: Carb Count or DM1 Addtl Provider Instructions: Take probiotics 2 capsules 3 times a day for 30 days Follow-up with primary care physician for repeat blood cultures 2 weeks after stopping the antibiotic. Prescriptions: New cefdinir 300 mg capsule 300 mg PO BID 11 Days Qty: 22 RF: 0 Lactobacillus acidophilus capsule 3,000 mmu cells PO TID Qty: 90 RF: 0 cyanocobalamin (vitamin B-12) 500 mcg tablet 500 mcg PO DAILY Qty: 30 RF: 2 Continued sennosides [senna] 8.6 mg Tablet 8.6 mg PO HS PRN (Reason: Constipation) RF: 0 prednisone 5 mg Tablet 5 mg PO DAILY RF: 0 ondansetron HCl [Zofran] 8 mg Tablet 8 mg PO Q8H PRN (Reason: Nausea) RF: 0 nitroglycerin 0.4 mg Tablet, Sublingual 0.4 mg sublingual DIRECTED PRN (Reason: Angina) RF: 0 metoprolol succinate 25 mg Tablet Extended Release 24 Hr 12.5 mg PO DAILY RF: 0 metformin 1,000 mg Tablet 1,000 mg PO BID RF: 0 ketoconazole 2 % Shampoo 2 % TOPICAL DIRECTED RF: 0 cholecalciferol (vitamin D3) [Vitamin D3] 1,000 unit Capsule PO DAILY RF: 0 cetirizine [Zyrtec] 10 mg Tablet 10 mg PO DAILY PRN (Reason: Allergy Symptoms) RF: 0 calcium carbonate-vit D3-min 600 mg calcium- 200 unit Tablet 1 tab PO DAILY RF: 0 atorvastatin 10 mg Tablet 10 mg PO DAILY RF: 0 aspirin 81 mg Tablet,Delayed Release (Dr/Ec) 81 mg PO DAILY RF: 0 allopurinol 100 mg Tablet 100 mg PO DAILY RF: 0 acetaminophen 325 mg Tablet 325 mg PO Q4H PRN (Reason: Pain) RF: 0 Lantus U-100 Insulin 100 unit/mL Solution 10 unit SUBCUT HS RF: 0 insulin lispro [Humalog KwikPen Insulin] 100 unit/mL Insulin Pen 5 unit SUBCUT AC RF: 0 ibuprofen 100 mg Tablet 100 mg PO DAILY PRN (Reason: Pain) RF: 0 Stand-Alone Forms: [facility] Discharge Orders: Discharge Order (Routine); Ordered 04/29/19 Ordered By: Norah Ferris Admission Data Admit Date/Time: 04/26/19 22:14 Attending Provider: Norah Saeed Admit Provider: Alejandro Simons I. Primary Care Provider: Gil Ambrose Other Providers: Dom Tafoya Service: Telemetry Medical
== END 2019-04-29 18:20 | disposition home or self-care (01) | DRG 871 ==
LOC: ED 19:21 → 2W 22:14 → SUATTDRO 22:14 → 2W 23:20

== ENCOUNTER 2019-10-15 02:24 | Inpatient (IN) ==
[2019-10-15] MEDS ORDERED: SODIUM CHLORIDE 0.9% 500 ML IV ONE ×2 (03:06→03:59)
[2019-10-15] MEDS ORDERED: ACETAMINOPHEN 500 MG TAB PO STA (03:06)
[2019-10-15 03:14] LABS: Basophils # (auto) 0.01 K/uL (0-0.2); Basophils % (auto) 0.2 %; Hematocrit (blood only) 32.4 % (42-52); Hemoglobin 10.1 g/dL (14.0-18.0); Immature Granulocytes # (auto) 0.03 K/uL (0.00-0.02); Immature Granulocytes % (auto) 0.5 %; Lymphocytes # (auto) 0.32 K/uL (1.2-3.4); Lymphocytes % (auto) 5.4 %; Mean Corpuscular Hemoglobin 29.9 pg (25-34); Mean Corpuscular Hgb Conc 31.2 g/dL (32-36); Mean Corpuscular Volume 95.9 fL (80-100); Mean Platelet Volume 10.8 fL (7.4-10.4); Monocytes # (auto) 0.42 K/uL (0.11-0.59); Monocytes % (auto) 7.1 %; Neutrophils % (auto) 86.8 %; Platelet Count 134 K/uL (130-400); RDW Coefficient of Variation 18.7 % (11.5-14.5); RDW Standard Deviation 64.3 fL (36.4-46.3); Red Blood Count 3.38 M/uL (4.7-6.1); White Blood Count 5.88 K/uL (4.8-10.8)
[2019-10-15 03:24] LABS: Albumin Level 3.3 gm/dl (3.4-5.0); Calcium 9.2 mg/dl (8.5-10.1); Est GFR (African American) 64.9; INR 1.2 (0.9-1.1); Magnesium 1.4 mg/dl (1.8-2.4); Partial Thromboplastin Time 26.8 Seconds (21.0-31.0); Potassium 3.9 mmol/L (3.5-5.1); Prothrombin Time 12.3 Seconds (9.0-12.0)
[2019-10-15 03:27] LABS: Albumin Globulin Ratio 0.9 (0.9-2); Bilirubin,Total 2.3 mg/dl (0.2-1); Globulin 3.6 gm/dl (2.5-4.0); Total Protein 6.9 gm/dl (6.4-8.2)
[2019-10-15] MEDS ORDERED: MAGNESIUM SULFATE / D5W 1 GM/100 ML BAG IV ONE (03:59)
[2019-10-15] MEDS ORDERED: SODIUM CHLORIDE 0.9% 500 ML IV SCH (04:00)
[2019-10-15] MEDS ORDERED: DAPTOmycin 500 MG VIAL IV STA (04:28)
[2019-10-15] MEDS ORDERED: AZTREONAM 2,000 MG in DEXTROSE 5% 100 ML IV STA (04:28)
[2019-10-15] MEDS ORDERED: IOVERSOL 100ml IV PRN (05:04)
--- NOTE | 2019-10-15 05:19 | History & Physical Report ---
Date of Service October 15, 2019 Assessment & Plan (1) Pancreatic cancer: Metastatic pancreatic cancer/history of metal biliary stent/abnormal liver enzymes- Order CT of abdomen pelvis with IV contrast to assess for possible stent complication. Placed on daptomycin IV and aztreonam IV Consult gastroenterology Dr. Ru Miranda Present on Admission?: Yes (2) History of biliary stent insertion: See above Present on Admission?: Yes (3) Abnormal liver function tests: Follow laboratory serially. Ordering CT of abdomen pelvis with IV contrast. We will check ammonia level Present on Admission?: Yes (4) Thrombocytopenia: Platelets are 134 upon admission, with a range 106-307. Follow serially. Present on Admission?: Yes (5) Hypomagnesemia: Replace with total of 4 g magnesium sulfate IV, and recheck laboratories in a.m. Present on Admission?: Yes (6) Lactic acidosis: Repeat in 6 hours. Initial lactate 5.4 Present on Admission?: Yes (7) Fall: Fall occurred secondary to generalized weakness. We will optimize electrolytes, treat potential sepsis, and may need PT OT consult. Present on Admission?: Yes (8) Diabetes mellitus: Patient will be n.p.o. Hold metformin and Lantus 10 units subcu at bedtime. Placed on Accu-Cheks before meals and at bedtime with NovoLog coverage per scale Present on Admission?: Yes (9) Altered mental status: May be on the basis of sepsis, dehydration, or possibly hepatic encephalop athy. Present on Admission?: Yes (10) Hyperlipidemia: Hold atorvastatin while n.p.o. Present on Admission?: Yes (11) GERD (gastroesophageal reflux disease): Change pantoprazole to famotidine 20 mg IV every 12 Present on Admission?: Yes History of Present Illness Chief Complaint: The patient presents to the ED after sustaining a fall upon returning from the restroom overnight at his residence. Primary Care Provider: Gil Ambrose MD The patient is a 84 yo male with PMH including pancreatic cancer, DM, gout, HTN, hypomagnesemia, thrombocytopenia, gram negative bacteremia and CBD stent. He presents to the ED after not being able to make it back to his bed after going to the restroom due to generalized weakness. He does report some abdominal discomfort over the past few days, and his appetite has been decreased. He did have an episode of vomiting as he was arriving at the hospital. He presently is undergoing chemotherapy at the direction of Dr. Frazier. His most recent labs on 10/09/2019 were normal. Workup in the ED included a normal CXR, however his LFT's were abnormal. Lactate was elevated at 5.4, and magnesium was low at 1.4. Allergies Allergy/AdvReac Type Severity Reaction Status Date / Time amoxicillin Allergy Intermediate ITCHINESS,R Verified 10/15/19 03:57 JORGE L Penicillins Allergy Intermediate ITCHINESS, Verified 10/15/19 03:57 rash Home Medications Home Medications Medication Instructions Recorded Confirmed Type Lantus U-100 Insulin 10 unit SUBCUT HS 03/29/19 10/15/19 History acetaminophen 325 mg PO Q4H PRN 03/29/19 10/15/19 History allopurinol 100 mg PO DAILY 03/29/19 10/15/19 History aspirin 81 mg PO DAILY 03/29/19 10/15/19 History calcium carbonate-vit D3-min 1 tab PO DAILY 03/29/19 10/15/19 History cetirizine [Zyrtec] 10 mg PO DAILY PRN 03/29/19 10/15/19 History cholecalciferol (vitamin D3) 1,000 unit PO DAILY 03/29/19 10/15/19 History [Vitamin D3] insulin lispro [Humalog KwikPen 5 unit SUBCUT AC PRN 03/29/19 10/15/19 History Insulin] ketoconazole 2 % TOPICAL DIRECTED 03/29/19 10/15/19 History metformin 1,000 mg PO BID 03/29/19 10/15/19 History metoprolol succinate 12.5 mg PO DAILY 03/29/19 10/15/19 History nitroglycerin 0.4 mg SUBLINGUAL DIRECTED PRN 03/29/19 10/15/19 History ondansetron HCl [Zofran] 8 mg PO Q8H PRN 03/29/19 10/15/19 History prednisone 5 mg PO DAILY 03/29/19 10/15/19 History atorvastatin 20 mg tablet 20 mg PO DAILY #90 tab 05/08/19 10/15/19 Rx pantoprazole 40 mg PO DAILY 10/15/19 10/15/19 History sennosides-docusate sodium 1 tab-cap PO HS 10/15/19 10/15/19 History [Senna-S] Past Med/Surg History Medical History Cholecystitis (Acute) Gout Hypomagnesemia (Acute) Pancreatic cancer (Chronic) Thrombocytopenia (Acute) Social History Preferred Language: Azeri Communication Ability: Effective Proposal Analyst Required: No Beliefs That Will Affect Care: None marital status: / Current Living Situation: Family Feels Safe at Home: Yes Smoking Status: Never smoker Second Hand Exposure: No ; Hx Alcohol Use: No Hx Substance Use: No Review of Systems Review of Systems: The patient denies chest pain, palpitations, shortness of breath, dyspnea on exertion, cough, lower extremity swelling, sore throat, fevers, chills, sweats, diarrhea , constipation, blood in urine or stool, dysuria, urinary frequency or urgency, headache, rash, abnormal bruising or bleeding, focal weakness, numbness or tingling in arms or legs, neck pain, or night sweats. The review of systems is otherwise negative other than for that already noted above, and at least 10 systems have been reviewed. Physical Exam Physical Exam: The patient is awake, alert and oriented 3, mildly hard of hearing ,normocephalic and atraumatic, lying in bed and in no acute distress. HEENT--PERRL, EOMI, mucous membranes and oropharynx dry. Neck--supple. No JVD. No bruits. Thyroid normal, trachea midline, no adenopath y. Heart--normal S1 and S2. No murmurs, rubs or gallops. Lungs--clear bilaterally, no respiratory distress, no accessory muscle use. Abdomen--normal bowel sounds and soft. Nontender. Mildly distended. Extremities--no cyanosis or clubbing. Trace bilateral pretibial pitting edema. Dermatologic--a few scattered ecchymoses Neurologic--cranial nerves II through XII grossly intact. Rheumatologic--normal range of motion. Psychiatric--normal affect. Results & Data Vital Signs (Past 12 Hours) Vital Signs Temp Pulse Pulse Resp BP BP Pulse Ox 10/15/19 05:00 93 H 26 H 118/62 94 10/15/19 04:30 95 H 24 125/47 L 94 10/15/19 04:17 100.2 F H 96 H 29 H 123/69 93 10/15/19 04:00 95 H 20 123/69 94 10/15/19 03:45 99 H 25 H 95 10/15/19 03:31 103 H 20 93 10/15/19 03:30 93 H 23 121/61 92 10/15/19 03:15 100 H 14 91 10/15/19 03:10 91 10/15/19 03:07 100 H 17 93 10/15/19 03:00 95 H 16 124/60 92 10/15/19 02:36 100.8 F H 101 H 20 160/72 H 93 Laboratory Results Laboratory Results WBC 5.88 K/uL (4.8-10.8) 10/15/19 02:50 RBC 3.38 M/uL (4.7-6.1) L 10/15/19 02:50 Hgb 10.1 g/dL (14.0-18.0) L 10/15/19 02:50 Hct 32.4 % (42-52) L 10/15/19 02:50 MCV 95.9 fL (80-100) 10/15/19 02:50 MCH 29.9 pg (25-34) 10/15/19 02:50 MCHC 31.2 g/dL (32-36) L 10/15/19 02:50 RDW Std Deviation 64.3 fL (36.4-46.3) H 10/15/19 02:50 RDW Coeff of Lefty 18.7 % (11.5-14.5) H 10/15/19 02:50 Plt Count 134 K/uL (130-400) 10/15/19 02:50 MPV 10.8 fL (7.4-10.4) H 10/15/19 02:50 Immature Gran % (Auto) 0.5 % 10/15/19 02:50 Neut % (Auto) 86.8 % 10/15/19 02:50 Lymph % (Auto) 5.4 % 10/15/19 02:50 [place] % (Auto) 7.1 % 10/15/19 02:50 Eos % (Auto) 0.0 % 10/15/19 02:50 Baso % (Auto) 0.2 % 10/15/19 02:50 Immature Gran # (Auto) 0.03 K/uL (0.00-0.02) H 10/15/19 02:50 Neut # (Auto) 5.10 K/uL (1.4-6.5) 10/15/19 02:50 Lymph # (Auto) 0.32 K/uL (1.2-3.4) L 10/15/19 02:50 [place] # (Auto) 0.42 K/uL (0.11-0.59) 10/15/19 02:50 Eos # (Auto) 0.00 K/uL (0-0.5) 10/15/19 02:50 Baso # (Auto) 0.01 K/uL (0-0.2) 10/15/19 02:50 PT 12.3 Seconds (9.0-12.0) H 10/15/19 02:50 INR 1.2 (0.9-1.1) H 10/15/19 02:50 APTT 26.8 Seconds (21.0-31.0) 10/15/19 02:50 PTT Ratio 1.0 10/15/19 02:50 Sodium 141 mmol/L (136-145) 10/15/19 02:50 Potassium 3.9 mmol/L (3.5-5.1) 10/15/19 02:50 Chloride 108 mmol/L (98-107) H 10/15/19 02:50 Carbon Dioxide 26 mmol/L (21-32) 10/15/19 02:50 Anion Gap 7.0 (3-11) 10/15/19 02:50 BUN 20 mg/dl (7-18) H 10/15/19 02:50 Creatinine 1.20 mg/dl (0.6-1.4) 10/15/19 02:50 Est Cr Clr Drug Dosing 49.0 ml/min 10/15/19 02:50 Est GFR ( Amer) 64.9 10/15/19 02:50 Est GFR (Non-Af Amer) 56.0 10/15/19 02:50 BUN/Creatinine Ratio 17.0 (10-20) 10/15/19 02:50 Glucose 170 mg/dl (70-99) H 10/15/19 02:50 Lactate 2.9 mmol/L (0.4-2.0) H* 10/15/19 04:38 Calcium 9.2 mg/dl (8.5-10.1) 10/15/19 02:50 Magnesium 1.4 mg/dl (1.8-2.4) L 10/15/19 02:50 Total Bilirubin 2.3 mg/dl (0.2-1) H 10/15/19 02:50 AST 737 U/L (15-37) H 10/15/19 02:50 ALT 488 U/L (12-78) H 10/15/19 02:50 Alkaline Phosphatase 207 U/L (45-117) H 10/15/19 02:50 Total Protein 6.9 gm/dl (6.4-8.2) 10/15/19 02:50 Albumin 3.3 gm/dl (3.4-5.0) L 10/15/19 02:50 Globulin 3.6 gm/dl (2.5-4.0) 10/15/19 02:50 Albumin/Globulin Ratio 0.9 (0.9-2) 10/15/19 02:50 Influenza Type A Ag Neg for Influ A (Neg) 10/15/19 Unknown Influenza Type B Ag Neg for Influ B (Neg) 10/15/19 Unknown Code Status & VTE Plan Code Status Full code VTE Prophylaxis Plan VTE Prophylaxis will be ordered: Yes PG Care Time/CCT Total # of Minutes Spent Total Time Spent with Patient: Total time spent is greater than 50% in coordination of care (as documented) at patient's floor/unit and/or counseling patient: Coding Level of Care Code 96973 Initial Inpt Care Lvl 3 Diagnoses Pancreatic cancer C25.9 Pancreatic malignancy location: unspecified History of biliary stent insertion Z98.890 Abnormal liver function tests R94.5 Thrombocytopenia D69.6 Hypomagnesemia E83.42 Lactic acidosis E87.2 Fall W19.XXXA Encounter type: initial encounter Diabetes mellitus E11.9 Altered mental status R41.82 Altered mental status type: unspecified Hyperlipidemia E78.5 GERD (gastroesophageal reflux disease) K21.9 (1) Pancreatic cancer Pancreatic malignancy location: unspecified Qualified Code(s): C25.9 - Malignant neoplasm of pancreas, unspecified (2) Fall Encounter type: initial encounter Qualified Code(s): W19.XXXA - Unspecified fall, initial encounter (3) Altered mental status Altered mental status type: unspecified Qualified Code(s): R41.82 - Altered mental status, unspecified
--- NOTE | 2019-10-15 06:00 | Emergency Department Note ---
Entered by Aldo Barrera acting as a scribe for Anita Díaz DO History of Present Illness General Chief complaint: Fever Stated complaint: FEVER, FALL, CHEMO PT Time Seen by Provider: 10/15/19 02:35 Source: patient and family History of Present Illness Provider complaint: fever, weakness Onset (ago): hour(s) less than 1 Location: head Radiation: non-radiation Pain Consistency: + intermittent Quality: + other (103F) Relieved By: + none Exacerbated By: + other (chemo therapy) Associated symptoms: + denies other symptoms, + fever/chills, + nausea/vomiting and + weakness The patient is an 84 y/o male patient with a history of pancreatic cancer on chemotherapy who presents to the emergency department for evaluation of intermittent fevers and a fall that occurred prior to arrival. The patients states that an hour ago he threw up, and had a fever of 100.3F. The family states that the patient fell in the bedroom and struggled to get to the bathroom with issues walking so they came to the ED. They report that the patient had chemo on Tuesday. The daughter notes that with the Chemo treatment the patient gets tired and weak so their doctor prescribed Tylenol treatments which has worked for the past 4 months. She reports that the patient has had 2 episodes of these symptoms before but the vomiting is new for him. The patient report abdominal pain and the daughter notes he has been gassy since this afternoon. The patient denies chest pain, shortness of breath, injury from the fall, and any other symptoms. Home Medications Home Medications Medication Instructions Recorded Confirmed Type Lantus U-100 Insulin 10 unit SUBCUT HS 03/29/19 10/15/19 History acetaminophen 325 mg PO Q4H PRN 03/29/19 10/15/19 History allopurinol 100 mg PO DAILY 03/29/19 10/15/19 History aspirin 81 mg PO DAILY 03/29/19 10/15/19 History calcium carbonate-vit D3-min 1 tab PO DAILY 03/29/19 10/15/19 History cetirizine [Zyrtec] 10 mg PO DAILY PRN 03/29/19 10/15/19 History cholecalciferol (vitamin D3) 1,000 unit PO DAILY 03/29/19 10/15/19 History [Vitamin D3] insulin lispro [Humalog KwikPen 5 unit SUBCUT AC PRN 03/29/19 10/15/19 History Insulin] ketoconazole 2 % TOPICAL DIRECTED 03/29/19 10/15/19 History metformin 1,000 mg PO BID 03/29/19 10/15/19 History metoprolol succinate 12.5 mg PO DAILY 03/29/19 10/15/19 History nitroglycerin 0.4 mg SUBLINGUAL DIRECTED PRN 03/29/19 10/15/19 History ondansetron HCl [Zofran] 8 mg PO Q8H PRN 03/29/19 10/15/19 History prednisone 5 mg PO DAILY 03/29/19 10/15/19 History atorvastatin 20 mg tablet 20 mg PO DAILY #90 tab 05/08/19 10/15/19 Rx pantoprazole 40 mg PO DAILY 10/15/19 10/15/19 History sennosides-docusate sodium 1 tab-cap PO HS 10/15/19 10/15/19 History [Senna-S] Allergies Allergy/AdvReac Type Severity Reaction Status Date / Time amoxicillin Allergy Intermediate ITCHINESS,R Verified 10/15/19 03:57 JORGE L Penicillins Allergy Intermediate ITCHINESS, Verified 10/15/19 03:57 rash Past Med/Surg History Medical History (Updated 10/15/19 @ 06:42 by Anita Díaz DO) Cholecystitis (Acute) Diabetes mellitus GERD (gastroesophageal reflux disease) Gout History of biliary stent insertion Hyperlipidemia Hypomagnesemia (Acute) Pancreatic cancer (Chronic) Thrombocytopenia (Acute) Social History Preferred Language: Luxembourgish Communication Ability: Effective Content Publisher Required: No Beliefs That Will Affect Care: None marital status: / Current Living Situation: Family Feels Safe at Home: Yes Smoking Status: Never smoker Second Hand Exposure: No ; Hx Alcohol Use: No Hx Substance Use: No Review of Systems See HPI for pertinent positives & negatives. and A total of 10 systems reviewed and were otherwise negative Physical Exam Vital Signs Vital Signs - 24 hr 10/15/19 02:36 10/15/19 03:00 10/15/19 03:07 Temperature 38.2 C H Temperature Source Oral Pulse Rate 101 H 95 H 100 H Pulse Rate [Apical] Pulse Rate from SpO2 Sensor 100 H 98 H Respiratory Rate 20 16 17 Respiratory Effort / Characteristics Non-Labored Respiratory Depth Normal Respiratory Pattern Regular Blood Pressure 160/72 H 124/60 Blood Pressure [Right Arm] Blood Pressure Mean 101 82 Blood Pressure Mean [Right Arm] Blood Pressure Position Lying Pulse Oximetry 93 92 93 Oxygen Delivery Method Room Air Sepsis Recent Fever Within 48 Hours Yes Sepsis Action Taken by Nursing Physician Notified 10/15/19 03:10 10/15/19 03:15 10/15/19 03:30 Temperature Temperature Source Pulse Rate 100 H 93 H Pulse Rate [Apical] Pulse Rate from SpO2 Sensor 84 97 H Respiratory Rate 14 23 Respiratory Effort / Characteristics Respiratory Depth Respiratory Pattern Blood Pressure 121/61 Blood Pressure [Right Arm] Blood Pressure Mean 86 Blood Pressure Mean [Right Arm] Blood Pressure Position Pulse Oximetry 91 91 92 Oxygen Delivery Method Room Air Sepsis Recent Fever Within 48 Hours Sepsis Action Taken by Nursing 10/15/19 03:31 10/15/19 03:45 10/15/19 04:00 Temperature Temperature Source Pulse Rate 103 H 99 H 95 H Pulse Rate [Apical] Pulse Rate from SpO2 Sensor 103 H 96 H 93 H Respiratory Rate 20 25 H 20 Respiratory Effort / Characteristics Respiratory Depth Respiratory Pattern Blood Pressure 123/69 Blood Pressure [Right Arm] Blood Pressure Mean 90 Blood Pressure Mean [Right Arm] Blood Pressure Position Pulse Oximetry 93 95 94 Oxygen Delivery Method Sepsis Recent Fever Within 48 Hours Sepsis Action Taken by Nursing 10/15/19 04:17 10/15/19 04:30 10/15/19 05:00 Temperature 37.9 C H Temperature Source Oral Pulse Rate 95 H 93 H Pulse Rate [Apical] 96 H Pulse Rate from SpO2 Sensor Respiratory Rate 29 H 24 26 H Respiratory Effort / Characteristics Respiratory Depth Respiratory Pattern Blood Pressure 125/47 L 118/62 Blood Pressure [Right Arm] 123/69 Blood Pressure Mean 69 83 Blood Pressure Mean [Right Arm] 87 Blood Pressure Position Pulse Oximetry 93 94 94 Oxygen Delivery Method Room Air Sepsis Recent Fever Within 48 Hours Sepsis Action Taken by Nursing HEENT: Head - normocephalic and atraumatic Pupils are equal, round, and reactive to light. Extraocular eye muscles are intact, and sclera are anicteric. Nose - moist nasal mucosa without discharge. Mouth - moist buccal mucosa. Oropharynx is nonerythematous and there is no tonsillar exudate or edema noted. Neck: Supple; no JVD or cervical lymphadenopathy Heart: Regular rate and rhythm. There is a normal S1 and S2 with no clicks, or gallops appreciated. Lungs: Clear to auscultation bilaterally with no wheezes, rales, or rhonchi. Abdomen: Soft, completely nontender, nondistended, with good bowel sounds. There are no palpable pulsatile masses or hepatosplenomegaly. There is no guarding, rigidity, or rebound noted. Extremities: No evidence of cyanosis, clubbing, or edema. There are easily palpable peripheral pulses. Skin: Hot and dry with good turgor and no rashes. Course Course 0449: Past medical records reviewed. The patient was evaluated in room A10. A complete history and physical exam was performed. Neutropenic precautions were taken. A septic protocol was performed. An order was placed for continuous cardiac monitoring. The patient remains in a normal sinus rhythm at 94. His port was accessed. And labs were drawn as above 0306: I ordered sodium chloride 0.9% 999mls/hr and Tylenol 1000 mg PO. 0359: I ordered magnesium sulfate 1 gm in 100 lm IV, and sodium chloride 0.9% 999mls/hr. 0401: I checked on the patient and updated the family on the results. They are agreeable to admission. 0427: I informed the daughter that the flu swab was negative 0428: I ordered Cubicin 500mg IV and Azactam 2000 mg IV. 0441: I spoke with Dr. Tafoya- [facility] hospitalist. He will evaluate for further management. Administered Medications Ioversol (Optiray 320 100ml) 100 ml IV ONCE PRN PRN Reason: Interaction Checking Stop: 10/19/19 05:03 Last Admin: 10/15/19 05:04 Dose: 92 ml Documented by: [id number] Discontinued Medications Acetaminophen (Tylenol) 1,000 mg PO NOW STA Stop: 10/15/19 03:07 Last Admin: 10/15/19 03:27 Dose: 1,000 mg Documented by: [id number] Daptomycin (Cubicin) 500 mg IV NOW STA; Protocol Stop: 10/15/19 04:29 Last Admin: 10/15/19 04:52 Dose: 500 mg Documented by: [id number] Sodium Chloride (Nss) 500 mls @ 999 mls/hr IV .Q31M ONE Stop: 10/15/19 03:36 Last Infusion: 10/15/19 03:53 Dose: 0 mls/hr Documented by: [id number] Admin: 10/15/19 03:20 Dose: 999 mls/hr Documented by: [id number] Magnesium Sulfate/Dextrose (Magnesium Sulfate / D5w) 1 gm in 100 mls @ 100 mls/hr IV ONE ONE Stop: 10/15/19 04:58 Last Infusion: 10/15/19 05:26 Dose: 0 mls/hr Documented by: [id number] Admin: 10/15/19 04:14 Dose: 100 mls/hr Documented by: [id number] Sodium Chloride (Nss) 500 mls @ 999 mls/hr IV .Q31M ONE Stop: 10/15/19 04:29 Last Infusion: 10/15/19 04:52 Dose: 0 mls/hr Documented by: [id number] Admin: 10/15/19 04:15 Dose: 999 mls/hr Documented by: [id number] Sodium Chloride (Nss) 500 mls @ 125 mls/hr IV .Q4H SHIRA Stop: 11/14/19 03:59 Last Admin: 10/15/19 04:15 Dose: 125 mls/hr Documented by: [id number] Aztreonam 2,000 mg/ Dextrose 120 mls @ 100 mls/hr IV NOW STA; Protocol Stop: 10/15/19 05:39 Last Admin: 10/15/19 04:52 Dose: 100 mls/hr Documented by: [id number] Medical Decision Making Differential Diagnosis Differential diagnosis: neutropenic fever, sepsis, pneumonia, influenza, UTI, gastroenteritis Medical Records Attestation: I reviewed the patient's medical records. Home Medications Current Medication List: was personally reviewed by me Laboratory Data Attestation: I reviewed the patient's lab results. Result diagrams: 10/15/19 02:50 10/15/19 02:50 Lab Results 10/15/19 10/15/19 10/15/19 Range/Units 02:50 02:50 02:50 WBC 5.88 (4.8-10.8) K/uL RBC 3.38 L (4.7-6.1) M/uL Hgb 10.1 L (14.0-18.0) g/dL Hct 32.4 L (42-52) % MCV 95.9 (80-100) fL MCH 29.9 (25-34) pg MCHC 31.2 L (32-36) g/dL RDW Std Deviation 64.3 H (36.4-46.3) fL RDW Coeff of Lefty 18.7 H (11.5-14.5) % Plt Count 134 (130-400) K/uL MPV 10.8 H (7.4-10.4) fL Immature Gran % (Auto) 0.5 % Neut % (Auto) 86.8 % Lymph % (Auto) 5.4 % Winston % (Auto) 7.1 % Eos % (Auto) 0.0 % Baso % (Auto) 0.2 % Immature Gran # (Auto) 0.03 H (0.00-0.02) K/uL Neut # (Auto) 5.10 (1.4-6.5) K/uL Lymph # (Auto) 0.32 L (1.2-3.4) K/uL Winston # (Auto) 0.42 (0.11-0.59) K/uL Eos # (Auto) 0.00 (0-0.5) K/uL Baso # (Auto) 0.01 (0-0.2) K/uL PT 12.3 H (9.0-12.0) Seconds INR 1.2 H (0.9-1.1) APTT 26.8 (21.0-31.0) Seconds PTT Ratio 1.0 Sodium 141 (136-145) mmol/L Potassium 3.9 (3.5-5.1) mmol/L Chloride 108 H (98-107) mmol/L Carbon Dioxide 26 (21-32) mmol/L Anion Gap 7.0 (3-11) BUN 20 H (7-18) mg/dl Creatinine 1.20 (0.6-1.4) mg/dl Est Cr Clr Drug Dosing 49.0 ml/min Est GFR ( Amer) 64.9 Est GFR (Non-Af Amer) 56.0 BUN/Creatinine Ratio 17.0 (10-20) Glucose 170 H (70-99) mg/dl Lactate (0.4-2.0) mmol/L Calcium 9.2 (8.5-10.1) mg/dl Magnesium 1.4 L (1.8-2.4) mg/dl Total Bilirubin 2.3 H (0.2-1) mg/dl AST 737 H (15-37) U/L ALT 488 H (12-78) U/L Alkaline Phosphatase 207 H (45-117) U/L Total Protein 6.9 (6.4-8.2) gm/dl Albumin 3.3 L (3.4-5.0) gm/dl Globulin 3.6 (2.5-4.0) gm/dl Albumin/Globulin Ratio 0.9 (0.9-2) Lipase (73-393) U/L 10/15/19 10/15/19 10/15/19 Range/Units 02:50 02:50 04:38 WBC (4.8-10.8) K/uL RBC (4.7-6.1) M/uL Hgb (14.0-18.0) g/dL Hct (42-52) % MCV (80-100) fL MCH (25-34) pg MCHC (32-36) g/dL RDW Std Deviation (36.4-46.3) fL RDW Coeff of Lefty (11.5-14.5) % Plt Count (130-400) K/uL MPV (7.4-10.4) fL Immature Gran % (Auto) % Neut % (Auto) % Lymph % (Auto) % Winston % (Auto) % Eos % (Auto) % Baso % (Auto) % Immature Gran # (Auto) (0.00-0.02) K/uL Neut # (Auto) (1.4-6.5) K/uL Lymph # (Auto) (1.2-3.4) K/uL Winston # (Auto) (0.11-0.59) K/uL Eos # (Auto) (0-0.5) K/uL Baso # (Auto) (0-0.2) K/uL PT (9.0-12.0) Seconds INR (0.9-1.1) APTT (21.0-31.0) Seconds PTT Ratio Sodium (136-145) mmol/L Potassium (3.5-5.1) mmol/L Chloride (98-107) mmol/L Carbon Dioxide (21-32) mmol/L Anion Gap (3-11) BUN (7-18) mg/dl Creatinine (0.6-1.4) mg/dl Est Cr Clr Drug Dosing ml/min Est GFR ( Amer) Est GFR (Non-Af Amer) BUN/Creatinine Ratio (10-20) Glucose (70-99) mg/dl Lactate 5.4 H* 2.9 H* (0.4-2.0) mmol/L Calcium (8.5-10.1) mg/dl Magnesium (1.8-2.4) mg/dl Total Bilirubin (0.2-1) mg/dl AST (15-37) U/L ALT (12-78) U/L Alkaline Phosphatase (45-117) U/L Total Protein (6.4-8.2) gm/dl Albumin (3.4-5.0) gm/dl Globulin (2.5-4.0) gm/dl Albumin/Globulin Ratio (0.9-2) Lipase 56 L (73-393) U/L Imaging Data Attestation: I personally reviewed and interpreted this imaging study as follows: My Impression: 1 view chest showed med port in place no obvious pulmonary infil trate or consolidation noted. ECG Data Attestation: I personally reviewed and interpreted this ECG as follows: Indication: + weakness Rate (beats per minute): 93 Rhythm: + normal sinus ECG Findings: + PVCs (frequent) Blood Pressure Blood Pressure Findings: Elevated blood pressure Blood Pressure Disposition: further management by hospitalist SHANTEL Cruz The patient is an 84 y/o male who presents to the emergency department for evaluation of intermittent fevers and a fall that occurred prior to arrival. The patient has a history of pancreatic cancer and is currently on chemotherapy. The family explains that the patient became quite weak this morning and had difficulty making it to the bathroom. He had a slight episode of vomiting in the bathroom and then fell to the ground. He denies injuring himself during the fall. He states that he was so weak he could no longer walk. The patient had a temp of 100.3 degrees at home and here in the emergency department it was 100.8 degrees. Influenza testing was performed and was negative. Laboratory studies revealed a normal white blood cell count but a significantly elevated lactate. The patient's liver function studies have's dramatically increased compared to just 6 days ago. This is quite concerning given the patient's history of pancreatic cancer and biliary stent. The patient's abdomen was reexamined and he is nontender on physical exam. The patient was covered with broad-spectrum a ntibiotics because of the sepsis. He was provided IV normal saline solution. He vomited once while in triage but had no further episodes of vomiting here in the emergency department. [facility] Impression & Plan Sepsis, Pancreatic cancer, Fall, Hypomagnesemia Discharge Plan Visit Data *Final* Discharge Date/Time: 10/15/19 05:46 Chief Complaint: Fever Stated Complaint: FEVER, FALL, CHEMO PT ED Provider: Anita Díaz Discharge Problem: Sepsis, Pancreatic cancer, Fall, Hypomagnesemia Patient Disposition: Admitted As Inpatient Discharge Instructions Interventions: ED Discharge Assessment Last Done: 10/15/19 05:46 Discharge Problem: Sepsis Qualifiers: Sepsis type: sepsis due to unspecified organism Severe sepsis acute organ dysfunction type: unspecified Severe sepsis shock status: unspecified Pancreatic cancer Qualifiers: Pancreatic malignancy location: unspecified Qualified Code(s): C25.9 - Malignant neoplasm of pancreas, unspecified Fall Qualifiers: Encounter type: initial encounter Qualified Code(s): W19.XXXA - Unspecified fall, initial encounter The scribe's documentation has been prepared under my direction and personally reviewed by me in its entirety. I confirm that the note above accurately reflects all work, treatment, procedures, and medical decision making performed by me.
[2019-10-15] MEDS ORDERED: GLUCOSE 40% GEL 15 GM TUBE PO PRN (06:25)
[2019-10-15] MEDS ORDERED: ONDANSETRON INJ 2 MG/ML 2 ML VIAL IV PRN (06:25)
[2019-10-15] MEDS ORDERED: GLUCAGON FOR INJ 1 MG VIAL SQ PRN (06:25)
[2019-10-15] MEDS ORDERED: CARBOHYDRATES FOR HYPOGLYCEMIA PO PRN (06:25)
[2019-10-15] MEDS ORDERED: GLUCOSE 10 TABS/TUBE PO PRN (06:25)
[2019-10-15] MEDS ORDERED: DEXTROSE 50% 50 ML SYRINGE IV PRN (06:25)
[2019-10-15] MEDS ORDERED: NITROGLYCERIN SL 0.4 MG/TAB TAB SL PRN (06:25)
--- NOTE | 2019-10-15 06:35 | XRay Report ---
XR chest 1V portable CLINICAL HISTORY: SEPSIS COMPARISON STUDY: 04/26/2019 FINDINGS: The cardiac and mediastinal contours remain stable. There is a left-sided A-Port catheter. There is no failure. There is no focal pulmonary consolidation. There are no pleural effusions.[There are minimal basilar atelectatic changes IMPRESSION: No active disease in the chest. ACT 112: Negative or not required by law. Electronically signed by: Loyd Valle M.D. 10/15/2019 6:33 AM
[2019-10-15] MEDS ORDERED: HEPARIN 100 UNIT/ML 5ML FLUSH FLUSH PRN (06:37)
[2019-10-15] MEDS: FAMOTIDINE 20 MG in SYRINGE 3 ML IV SCH ×2 (06:40→20:18)
[2019-10-15] MEDS: NSS + 20MEQ KCL 20 MEQ/1,000 ML BAG IV SCH ×2 (06:47→17:09)
--- NOTE | 2019-10-15 07:22 | CT Scan Report ---
ABDOMEN AND PELVIS CT WITH IV CONTRAST CT DOSE: 437.04 mGy.cm HISTORY: Pancreatic cancer. Fever. abnormal LFT's, nausea and vomiting TECHNIQUE: Multiaxial CT images of the abdomen and pelvis were performed following the use of intrave nous contrast. A dose lowering technique was utilized adhering to the principles of ALARA. COMPARISON STUDY: Abdomen and pelvis CT 07/08/2019. FINDINGS: No change in the bibasilar pulmonary nodules with the largest in the right lower lobe measu ring 7 mm. No pneumoperitoneum. No pneumatosis. There is a right hip prosthesis. Metallic common bile duct stent is noted. This is partially opacified. However, the pneumobilia persists suggesting paten cy. This remains unchanged. There is mild central intrahepatic bile duct dilatation which has slightl y progressed. No hepatic or splenic masses. Ill-defined soft tissue within and surrounding the pancre atic head consistent with the patient's known pancreatic mass. This results in severe narrowing at th e portosplenic confluence. Atrophy and dilatation of the pancreatic duct at the pancreatic tail remai ns unchanged. The adrenal glands are unremarkable. Prior cholecystectomy. Bilateral nephrolithiasis. No definite ureteral stones. No hydronephrosis. Of note, the distal ureters and bladder are not well visualized due to metallic artifact within the right hip prosthesis. Prior prostatectomy. Trace pelvi c free fluid. Stable 12 mm soft tissue nodule within the left side of the omentum. This suggests a me tastatic implant. Mild bilateral urothelial thickening within the renal pelvises remains stable. Ther e is also mild thickening within the hepatic ducts proximal to the stent. This is also unchanged. Sma ll right inguinal hernia containing a a few loops of nonobstructed small bowel. This is also unchange d. IMPRESSION: 1. Stable fullness within the pancreatic head consistent with the patient's known malignancy. Slight progression of the biliary ductal dilatation with a common bile duct stent in place. Debris/soft tiss ue within the stent is again noted. However, the pneumobilia persists suggesting patency. 2. No change in a 12 mm soft tissue nodule within the left omentum. This suggests a metastatic implan t. 3. Bilateral nephrolithiasis. No ureteral stones. No hydronephrosis. No change in the mild bilateral urothelial thickening. 4. Additional findings as described above. ACT 112: Negative or not required by law. Electronically signed by: Jose Angel Simmons M.D. 10/15/2019 7:21 AM
[2019-10-15 08:11] LABS: Appearance Urine Clear (Clear); Bacteria Urine Automated Negative (Negative); Blood Urine 2+ (Negative); Color Urine Dark Yellow; Glucose Urine UA Negative (Negative); Ketones Urine Negative (Negative); Leukocyte Esterase Urine Trace (Negative); Nitrite Urine Negative (Negative); Protein Urine Trace (Negative); RBC Urine Automated >30 /hpf (0-4); Specific Gravity Urine 1.038 (1.000-1.030); Urobilinogen Urine Positive (Negative)
[2019-10-15] MEDS: INSULIN ASPART 100 UNITS/ML 3 ML PEN SC SCH ×4 (08:13→20:18)
[2019-10-15 08:18] LABS: Bilirubin Urine Negative (Negative); Ictotest Urine Negative (Negative)
[2019-10-15] MEDS ORDERED: DAPTOmycin 500 MG VIAL IV SCH (09:00)
[2019-10-15] MEDS: AZTREONAM 1,000 MG in DEXTROSE 5% 100 ML IV SCH ×2 (12:46→20:17)
--- NOTE | 2019-10-15 14:34 | Consultation Report ---
DATE OF CONSULTATION: 10/15/2019 GASTROINTESTINAL CONSULTATION REASON FOR EVALUATION: Abnormal liver tests and sludge in his biliary stent. HISTORY OF PRESENT ILLNESS: The patient is an 84-year-old with pancreatic cancer diagnosed 2 years ago in 09/2017. At that time, he had a fully covered metal stent placed and got chemotherapy. The patient was admitted to the hospital today with a fall at home. During his hospital stay, he had a CAT scan that showed what looks like omental metastases and his liver tests are slightly abnormal. CAT scan shows what looks like some sludge maybe in the stent. GI consultation is requested to try to clean the metal stent of any debris. PAST MEDICAL HISTORY: Remarkable for pancreatic cancer, gout, cholecystitis and thrombocytopenia. MEDICATIONS: Per list. He is on baby aspirin. ALLERGIES: AMOXICILLIN AND PENICILLIN. SOCIAL HISTORY: The patient is a . Does not smoke, does not drink. REVIEW OF SYSTEMS: Positive for fatigue. Remainder is negative. PHYSICAL EXAMINATION: GENERAL: The patient appears in no acute distress. VITAL SIGNS: Blood pressure is 118/62, pulse 93, pulse ox on room air is 94%. LUNGS: Clear. HEART: Showed normal S1, S2. Regular rate and rhythm. ABDOMEN: Soft and nontender. LABORATORY DATA: Showed a bilirubin of 2.3, AST 737, ALT 488, alkaline phosphatase is 207. IMPRESSION AND PLAN: The patient has pancreatic cancer with abdominal metastases. He does have a fully covered metal stent in place, which appears to have some sludge in it. I plan on pursuing an ERCP to try to clear the debris from the metal stent. Hopefully, we can arrange to get this accomplished later this afternoon.
--- NOTE | 2019-10-15 16:38 | Progress Note ---
DATE: 10/15/2019 ADDENDUM: The patient was attempted to get an ERCP scheduled today; however, the OR is running very late and has multiple add-ons today, so it will not be possible to do it until very late. Because of that, I plan on cancelling the procedure for today and allowing to eat a regular diet and then we will reschedule the procedure for tomorrow at 3:30 p.m.
--- NOTE | 2019-10-15 19:59 | Electrocardiogram Report ---
Test Reason : Blood Pressure : / mmHG Vent. Rate : 093 BPM Atrial Rate : 093 BPM P-R Int : 204 ms QRS Dur : 068 ms QT Int : 326 ms P-R-T Axes : 051 017 047 degrees QTc Int : 405 ms Sinus rhythm with frequent Premature ventricular complexes Low voltage QRS Borderline ECG When compared with ECG of 26-APR-2019 19:26, Premature ventricular complexes are now Present Confirmed by Kirill Cueva ([id number]) on 10/15/2019 7:58:35 PM Referred By: REFERRED SELF Confirmed By:Yoni Cueva
[2019-10-16] MEDS: NSS + 20MEQ KCL 20 MEQ/1,000 ML BAG IV SCH ×2 (04:06→12:40)
[2019-10-16] MEDS: AZTREONAM 1,000 MG in DEXTROSE 5% 100 ML IV SCH (04:41)
[2019-10-16] MEDS ORDERED: DAPTOmycin 450 MG in SYRINGE 0 ML IV SCH (06:00)
[2019-10-16 06:59] LABS: Estimated Average Glucose 128 mg/dl; Hemoglobin A1C 6.1 % (4.5-5.6)
[2019-10-16] MEDS: INSULIN ASPART 100 UNITS/ML 3 ML PEN SC SCH ×4 (07:06→20:38)
[2019-10-16] MEDS: FAMOTIDINE 20 MG in SYRINGE 3 ML IV SCH ×2 (08:24→20:20)
[2019-10-16 10:32] LABS: Basophils # (auto) 0.01 K/uL (0-0.2); Basophils % (auto) 0.3 %; Eosinophils # (auto) 0.01 K/uL (0-0.5); Eosinophils % (auto) 0.3 %; Hematocrit (blood only) 26.9 % (42-52); Hemoglobin 8.5 g/dL (14.0-18.0); Immature Granulocytes # (auto) 0.02 K/uL (0.00-0.02); Immature Granulocytes % (auto) 0.5 %; Lymphocytes # (auto) 0.54 K/uL (1.2-3.4); Lymphocytes % (auto) 14.2 %; Mean Corpuscular Hgb Conc 31.6 g/dL (32-36); Mean Corpuscular Volume 95.1 fL (80-100); Mean Platelet Volume 10.1 fL (7.4-10.4); Monocytes # (auto) 0.64 K/uL (0.11-0.59); Monocytes % (auto) 16.8 %; Neutrophils # (auto) 2.58 K/uL (1.4-6.5); Neutrophils % (auto) 67.9 %; Platelet Count 59 K/uL (130-400); Platelet Estimate Decreased (Normal); RDW Standard Deviation 65.4 fL (36.4-46.3); Red Blood Count 2.83 M/uL (4.7-6.1)
[2019-10-16 10:35] LABS: BUN Creatinine Ratio 20.2 (10-20); Calcium 8.4 mg/dl (8.5-10.1); Creatinine Clr Calc Pharmacy 72.6 ml/min; Est GFR (African American) 95.9; Est GFR (Non-African American) 82.8
[2019-10-16] MEDS: cefTRIAXone SODIUM 2,000 MG in DEXTROSE 5% 50 ML IV SCH (12:40)
[2019-10-16] MEDS: metroNIDAZOLE 500 MG/100 ML BAG IV SCH ×2 (13:58→21:27)
[2019-10-16] MEDS ORDERED: PROPOFOL IV EMULSION 10 MG/ML 20 ML VIAL IV ONE (14:51)
[2019-10-16] MEDS ORDERED: SUCCINYLCHOLINE CHLORIDE 20 MG/ML 10 ML VIAL ONE (14:51)
[2019-10-16] MEDS ORDERED: LIDOCAINE HCL 2% 2 ML VIAL/AMP(20MG/ML) INFIL ONE (14:51)
[2019-10-16] MEDS ORDERED: ONDANSETRON INJ 2 MG/ML 2 ML VIAL ONE (14:51)
[2019-10-16] MEDS ORDERED: fentaNYL citrate 100 MCG/2 ML VIAL ONE (14:51)
[2019-10-16] MEDS ORDERED: LARYING-O-JET KIT (LTA) ONE (14:51)
[2019-10-16] MEDS ORDERED: PHENYLEPHRINE 100MCG/ML 5ML SYR ONE (15:02)
[2019-10-16] MEDS ORDERED: ePHEDrine sulfate 50 MG/ML SYR ONE (15:02)
[2019-10-16] MEDS ORDERED: INDOMETHACIN 50 MG SUPP PR ONE (15:15)
[2019-10-16] MEDS ORDERED: SODIUM CHLORIDE 0.9% 1000ML 1,000 ML IV SCH (15:15)
--- NOTE | 2019-10-16 15:17 | History & Physical Report ---
Date of Service October 16, 2019 History of Present Illness Chief Complaint: clogged biliary stent Primary Care Provider: Gil Ambrose MD For ERCP Allergies Allergy/AdvReac Type Severity Reaction Status Date / Time amoxicillin Allergy Intermediate ITCHINESS,R Verified 10/15/19 03:57 JORGE L Penicillins Allergy Intermediate ITCHINESS, Verified 10/15/19 03:57 rash Home Medications Home Medications Medication Instructions Recorded Confirmed Type Lantus U-100 Insulin 10 unit SUBCUT HS 03/29/19 10/15/19 History acetaminophen 325 mg PO Q4H PRN 03/29/19 10/15/19 History allopurinol 100 mg PO DAILY 03/29/19 10/15/19 History aspirin 81 mg PO DAILY 03/29/19 10/15/19 History calcium carbonate-vit D3-min 1 tab PO DAILY 03/29/19 10/15/19 History cetirizine [Zyrtec] 10 mg PO DAILY PRN 03/29/19 10/15/19 History cholecalciferol (vitamin D3) 1,000 unit PO DAILY 03/29/19 10/15/19 History [Vitamin D3] insulin lispro [Humalog KwikPen 5 unit SUBCUT AC PRN 03/29/19 10/15/19 History Insulin] ketoconazole 2 % TOPICAL DIRECTED 03/29/19 10/15/19 History metformin 1,000 mg PO BID 03/29/19 10/15/19 History metoprolol succinate 12.5 mg PO DAILY 03/29/19 10/15/19 History nitroglycerin 0.4 mg SUBLINGUAL DIRECTED PRN 03/29/19 10/15/19 History ondansetron HCl [Zofran] 8 mg PO Q8H PRN 03/29/19 10/15/19 History prednisone 5 mg PO DAILY 03/29/19 10/15/19 History atorvastatin 20 mg tablet 20 mg PO DAILY #90 tab 05/08/19 10/15/19 Rx pantoprazole 40 mg PO DAILY 10/15/19 10/15/19 History sennosides-docusate sodium 1 tab-cap PO HS 10/15/19 10/15/19 History [Senna-S] Past Med/Surg History Medical History Cholecystitis (Acute) Gout Hypomagnesemia (Acute) Pancreatic cancer (Chronic) Thrombocytopenia (Acute) Social History Preferred Language: Argentine Communication Ability: Effective Technical Sales Manager Required: No Beliefs That Will Affect Care: None marital status: / Current Living Situation: Alone and Family Current Living Situation Comment: has own home, but stays with daughter at times. Feels Safe at Home: Yes Smoking Status: Never smoker Second Hand Exposure: No ; Hx Alcohol Use: No Hx Substance Use: No Physical Exam Constitutional: well developed and well nourished Respiratory: normal respiratory effort Cardiovascular: Rate/Rhythm: regular rate and regular rhythm Gastrointestinal (Abdomen): Percussion/Palpation: abdomen soft Results & Data Vital Signs (Past 12 Hours) Vital Signs Temp Pulse Resp BP Pulse Ox 10/16/19 14:57 37.1 C 70 16 175/83 H 98 10/16/19 06:59 36.7 C 65 18 156/74 H 97 10/16/19 03:32 36.7 C 63 18 145/70 H 99 Code Status & VTE Plan VTE Prophylaxis Plan VTE Prophylaxis will be ordered: Yes
--- NOTE | 2019-10-16 15:22 | Anesthesiology Consultation ---
Date of Service October 16, 2019 Assessment & Plan Chart Review Chart Review: Acceptable Risk for Surgery and Patient NOT seen in Pre Admission Testing Consults Requested none ASA ASA4 Proposed Anesthesia Anesthesia Type: General Risk / Benefits Reviewed With: PT / POA / Parent / Guardian, Accepts Plan and Informed Consent Obtained History Surgery Operation Date: 10/16/19 07:00 Proposed Procedures p Endoscopic Retrograde Cholangiopancreato - Ru Son Ruben Height/Weight Height: 5 ft 10 in Weight: 79.7 kg Allergies Allergy/AdvReac Type Severity Reaction Status Date / Time amoxicillin Allergy Intermediate ITCHINESS,R Verified 10/15/19 03:57 JORGE L Penicillins Allergy Intermediate ITCHINESS, Verified 10/15/19 03:57 rash Medications Home Medications Medication Instructions Recorded Confirmed Last Taken Lantus U-100 Insulin 10 unit SUBCUT HS 03/29/19 10/15/19 04/25/19 acetaminophen 325 mg PO Q4H PRN 03/29/19 10/15/19 Unknown allopurinol 100 mg PO DAILY 03/29/19 10/15/19 04/26/19 aspirin 81 mg PO DAILY 03/29/19 10/15/19 04/26/19 calcium carbonate-vit D3-min 1 tab PO DAILY 03/29/19 10/15/19 04/26/19 cetirizine [Zyrtec] 10 mg PO DAILY PRN 03/29/19 10/15/19 Unknown cholecalciferol (vitamin D3) 1,000 unit PO DAILY 03/29/19 10/15/19 04/26/19 [Vitamin D3] insulin lispro [Humalog KwikPen 5 unit SUBCUT AC PRN 03/29/19 10/15/19 04/26/19 Insulin] ketoconazole 2 % TOPICAL DIRECTED 03/29/19 10/15/19 Unknown metformin 1,000 mg PO BID 03/29/19 10/15/19 04/26/19 metoprolol succinate 12.5 mg PO DAILY 03/29/19 10/15/19 04/26/19 nitroglycerin 0.4 mg SUBLINGUAL DIRECTED PRN 03/29/19 10/15/19 Unknown ondansetron HCl [Zofran] 8 mg PO Q8H PRN 03/29/19 10/15/19 Unknown prednisone 5 mg PO DAILY 03/29/19 10/15/1919 atorvastatin 20 mg tablet 20 mg PO DAILY #90 tab 05/08/19 10/15/19 Unknown pantoprazole 40 mg PO DAILY 10/15/19 10/15/19 Unknown sennosides-docusate sodium 1 tab-cap PO HS 10/15/19 10/15/19 Unknown [Senna-S] Active Medications Generic Name Dose Route Start Last Admin Trade Name Freq PRN Reason Stop Dose Admin Famotidine 20 mg/ Syringe 5 mls @ 2.5 mls/min 10/15/19 05:45 10/16/19 08:24 IV 11/14/19 05:44 2.5 mls/min Q12 SHIRA Administration Potassium Chloride/Sodium Chloride 20 meq in 1,000 mls @ 100 mls/hr 10/15/19 06:25 10/16/19 12:40 Normal Saline W/20 Meq Kcl IV 11/14/19 06:24 100 mls/hr .Q10H SHIRA Administration Metronidazole 500 mg in 100 mls @ 100 mls/hr 10/16/19 14:00 10/16/19 15:19 Flagyl IV 10/26/19 11:59 Infused Q8H SHIRA Infusion Ceftriaxone Sodium 2,000 mg/ 70 mls @ 140 mls/hr 10/16/19 12:00 10/16/19 13:10 Dextrose IV 10/26/19 11:59 Infused Q24H SHIRA Infusion Insulin Aspart 0 units 10/15/19 07:30 10/16/19 12:11 Novolog Flexpen SC 11/14/19 07:29 Not Given ACHS SHIRA Ioversol 100 ml 10/15/19 05:04 10/15/19 05:04 Optiray 320 100ml IV 10/19/19 05:03 92 ml ONCE PRN Administration Interaction Checking NPO Date Last Intake of Fluids: 10/15/19 Time Last Intake of Fluids: 22:00 Date Last Intake of Solids: 10/15/19 Time Last Intake of Solids: 22:00 Past Medical History Medical History Cholecystitis (Acute) Diabetes mellitus GERD (gastroesophageal reflux disease) Gout History of biliary stent insertion Hyperlipidemia Hypomagnesemia (Acute) Pancreatic cancer (Chronic) Thrombocytopenia (Acute) Exercise / Class Metabolic Activity III < 4 Walking/Shop/Light housework Past Anesthesia History No Hx of Anesthesia Complications and No Family Hx of Anesthesia Complications History of PONV No Hx of PONV and No Hx of Motion Sickness Social History Smoking Status: Never smoker Hx Alcohol Use: No Hx Substance Use: No Physical Exam Vital Signs Last Vital Signs Temp 37.1 C 10/16/19 14:57 Pulse 70 10/16/19 14:57 Resp 16 10/16/19 14:57 BP 175/83 H 10/16/19 14:57 Pulse Ox 98 10/16/19 14:57 Constitutional not obese ENMT Mouth: no dentition abnormality Thyromental Distance: > or= 3.5 Finger Breadths Mallampati Class: II Neck normal visual inspection and trachea midline; neck extension not limited Respiratory normal respiratory effort Auscultation: lungs clear to auscultation bilaterally Cardiovascular Rate/Rhythm: regular rate and regular rhythm Heart Sounds: no murmur Vessels: no carotid bruit Musculoskeletal Spine: lumbar spine normal to inspection; normal cervical ROM Extremities: extremities normal to inspection Neurologic moves all extremities Motor/Sensory: no sensory deficit Psychiatric Orientation: alert and oriented x 3 Testing Laboratory Results 10/16/19 09:50 10/16/19 09:50 PT 12.3 Seconds (9.0-12.0) H 10/15/19 02:50 INR 1.2 (0.9-1.1) H 10/15/19 02:50 APTT 26.8 Seconds (21.0-31.0) 10/15/19 02:50 Hemoglobin A1c 6.1 % (4.5-5.6) H 10/15/19 02:50 Urine Color Dark Yellow 10/15/19 07:50 Urine Appearance Clear (Clear) 10/15/19 07:50 Urine pH 6.0 (4.5-7.5) 10/15/19 07:50 Ur Specific [place] 1.038 (1.000-1.030) H 10/15/19 07:50 Urine Protein Trace (Negative) H 10/15/19 07:50 Urine Glucose (UA) Negative (Negative) 10/15/19 07:50 Urine Ketones Negative (Negative) 10/15/19 07:50 Urine Nitrite Negative (Negative) 10/15/19 07:50 Ur Leukocyte Esterase Trace (Negative) H 10/15/19 07:50 Urine WBC (Auto) 5-10 /hpf (0-5) H 10/15/19 07:50 Urine RBC (Auto) >30 /hpf (0-4) H 10/15/19 07:50 U Hyaline Cast (Auto) 1-5 /lpf (0-5) 10/15/19 07:50 U Epithel Cells (Auto) 10-20 /lpf (0-5) H 10/15/19 07:50 Urine Bacteria (Auto) Negative (Negative) 10/15/19 07:50 10/15/19 03:45 Aerobic Blood Culture - Preliminary Blood No growth in Aerobic bottle after 24 hours. Anaerobic Blood Culture - Final 10/15/19 02:50 Aerobic Blood Culture - Preliminary Blood No growth in Aerobic bottle after 24 hours. Anaerobic Blood Culture - Preliminary No growth in Anaerobic bottle after 24 hours. 10/16/19 10/16/19 11:42 06:28 POC Glucose 102 H 131 H Electrocardiogram Date: 10/15/19 Findings: + NSR @ (SR at 93 w/frequent PVC's;low voltage QRS) Chest X-Ray Date: 10/15/19 Findings: + NAD
[2019-10-16] MEDS ORDERED: ONDANSETRON INJ 2 MG/ML 2 ML VIAL IV PRN (15:27)
[2019-10-16] MEDS ORDERED: PROMETHAZINE HCL 12.5 MG in SODIUM CHLORIDE 0.9% 50 ML IV PRN (15:27)
[2019-10-16] MEDS ORDERED: FLUMAZENIL 0.1 MG/1 ML 10 ML VIAL IV PRN (15:27)
[2019-10-16] MEDS ORDERED: fentaNYL citrate 100 MCG/2 ML VIAL IV PRN (15:27)
[2019-10-16] MEDS ORDERED: ATROPINE SULFATE 0.1 MG/ML 10ML SYR IV PRN (15:27)
[2019-10-16] MEDS ORDERED: ePHEDrine sulfate 50 MG/ML AMP IV PRN (15:27)
[2019-10-16] MEDS ORDERED: NALOXONE HCL 0.4 MG/1 ML VIAL/CARP IV PRN (15:27)
--- NOTE | 2019-10-16 16:23 | GI REPORT ---
Patient Name: Francisco Desir Procedure Date: 10/16/2019 2:48 PM Date of : 1935 Admit Type: Inpatient Age: 84 Gender: Male Attending MD: Ru Miranda MD Procedure: ERCP Providers: Ru Miranda MD Referring MD: Donovan Culp M.d. Indications: Abnormal abdominal CT, Filling defect on intraoperative cholangiogram Medicines: General Anesthesia Complications: No immediate complications. Estimated Blood Loss: Estimated blood loss: none. Procedure: Pre-Anesthesia Assessment: - Prior to the procedure, a History and Physical was performed, and patient medications, allergies and sensitivities were reviewed. The patient's tolerance of previous anesthesia was reviewed. - The risks and benefits of the procedure and the sedation options and risks were discussed with the patient. All questions were answered and informed consent was obtained. - The risks and benefits of the procedure and the sedation options and risks were discussed with the patient. All questions were answered and informed consent was obtained. After obtaining informed consent, the scope was passed under direct vision. Throughout the procedure, the patient's blood pressure, pulse, and oxygen saturations were monitored continuously. The Scope was introduced through the mouth, and advanced to the duodenum and used to cannulate the bile duct. The ERCP was somewhat difficult due to a large stone. The patient tolerated the procedure well. Findings: Stent has migrated into the duct. The lower third of the main bile duct contained filling defect(s) thought to be sludge. Unable to advnce the ballon up the stent due to obstruction. The lower third of the main bile duct contained filling defect(s) thought to be sludge some removed with the balloon.. Impression: - The examination was suspicious for sludge. - The examination was suspicious for sludge. Recommendation: - [facility]. - Transfer patient to another hospital. - Perform an ERCP at appointment to be scheduled. Ru Miranda M.D. Ru Miranda MD 10/16/2019 4:23:11 PM This report has been signed electronically. Note Initiated On: 10/16/2019 2:48 PM Number of Addenda: 0 I attest to the content of the Intraoperative Record and orders documented therein, exceptions below {[id number]}
--- NOTE | 2019-10-16 16:30 | Fluoroscopy Report ---
[place] ERCP biliary ductal CLINICAL HISTORY: ERCP IN OR COMPARISON STUDY: 10/10/2017 FLUOROSCOPY TIME: 2 minutes 30 seconds NUMBER OF FLUOROSCOPIC IMAGES: 4 FINDINGS: Image intensifier was utilized for an endoscopic evaluation. IMPRESSION: Image intensifier was utilized for an endoscopic evaluation. ACT 112: Negative or not required by law. The above report was generated using voice recognition software. It may contain grammatical, syntax or spelling errors. Electronically signed by: Jose Marinelli M.D. 10/16/2019 4:28 PM
[2019-10-16] MEDS: LABETALOL HCL IV 5 MG/ML 20ML IV PRN ×2 (16:43→17:09)
--- NOTE | 2019-10-16 16:47 | Progress Note ---
DATE: 10/16/2019 The patient presented to the operating room today for an ERCP to try to clear his biliary stent which appears to have sludge noted on CT scan. During the procedure, the patient was found to have the stent having been migrated up into the bile duct, so that the end of it was not visible. I was able to pass a guidewire through the stent and inject contrast. It appeared that the stent was completely clogged. I attempted to pass a balloon over the guidewire up through the stent, but I was unable to multiple passes of the balloon in the lower end of the stent, yield a lot of sludge material. I tried to irrigate the inside of the stent with a saline which also yielded some sludge, but I was not able to advance the balloon further up into the stent to sweep it through. There still remains a fair amount of clogged material in the stent. IMPRESSION: The patient has what appears to be a clogged biliary stent that has migrated up into the bile duct slightly, the material appears to be very firm and I was unable to clear it or advance a balloon pass it. In this situation, I would recommend transfer to [facility] such [facility] or [place] to see if they can pass a mother-daughter scope into this stent to try to determine whether there is a tumor ingrowth or stone or sludge that is blocking it and try to clear it.
--- NOTE | 2019-10-16 17:13 | Anesthesiology Progress Note ---
Date of Service October 16, 2019 Anesthesia Post Procedure Vital Signs Vital Signs: Temp Pulse Pulse Resp BP Pulse Ox 10/16/19 17:00 73 20 168/88 H 95 10/16/19 16:50 77 18 135/96 98 10/16/19 16:45 83 18 196/89 H 100 10/16/19 16:35 87 20 183/92 H 99 10/16/19 16:26 36.3 C L 85 20 194/96 H 100 10/16/19 14:57 37.1 C 70 16 175/83 H 98 10/16/19 06:59 36.7 C 65 18 156/74 H 97 10/16/19 03:32 36.7 C 63 18 145/70 H 99 10/15/19 23:00 37.1 C 69 20 160/71 H 97 10/15/19 19:06 36.7 C 71 20 137/67 96 Transfer of Care Handoff Completed per policy Notes Mental Status: alert / awake / arousable Patient Amnestic to Procedure: Yes Nausea / Vomiting: adequately controlled Pain: adequately controlled Airway Patency, RR, SpO2: stable & adequate BP & HR: stable & adequate Hydration State: stable & adequate Anesthetic Complications: no major complications apparent
[2019-10-16] MEDS ORDERED: Nursing to Pharmacy Communication ONE (21:33)
--- NOTE | 2019-10-16 22:27 | Hospitalist Progress Note ---
Date of Service October 16, 2019 Assessment & Plan (1) Pancreatic cancer: Metastatic pancreatic cancer/history of metal biliary stent/abnormal liver enzymes- Order CT of abdomen pelvis with IV contrast to assess for possible stent complication. Placed on daptomycin IV and aztreonam IV Switched to ceftriaxone and flagyl. Consult gastroenterology Dr. Ru Miranda Awaiting ERCPto assess biliary stent. (2) History of biliary stent insertion: See above (3) Abnormal liver function tests: Follow laboratory serially. Ordering CT of abdomen pelvis with IV contrast. We will check ammonia level; this was normal. (4) Thrombocytopenia: Platelets are 134 upon admission, with a range 106-307. Follow serially. (5) Hypomagnesemia: Replace with total of 4 g magnesium sulfate IV (6) Lactic acidosis: Lactic acidosis improved. (7) Fall: Fall occurred secondary to generalized weakness. We will optimize electrolytes, treat potential sepsis, and may need PT OT consult. (8) Diabetes mellitus: . Hold metformin and Lantus 10 units subcu at bedtime. Placed on Accu-Cheks before meals and at bedtime with NovoLog coverage per scale (9) Altered mental status: May be on the basis of sepsis, dehydration, or possibly hepatic encephalopathy. (10) Hyperlipidemia: Hold atorvastatin for now. (11) GERD (gastroesophageal reflux disease): Change pantoprazole to famotidine 20 mg IV every 12 Subjective 84 yo male reports feeling well. He has no complaints at this time. He is interested in beiing discharged but understands he will be getting a procedure done later today. Review of Systems Review of Systems: All systems reviewed & are unremarkable except as noted in HPI & below Physical Exam Physical Exam: The patient is awake, alert and oriented 3, mildly hard of hearing ,normocephalic and atraumatic, lying in bed and in no acute distress. HEENT--PERRL, EOMI, mucous membranes and oropharynx dry. Neck--supple. No JVD. No bruits. Thyroid normal, trachea midline, no adenopathy. Heart--normal S1 and S2. No murmurs, rubs or gallops. Lungs--clear bilaterally, no respiratory distress, no accessory muscle use. Abdomen--normal bowel sounds and soft. Nontender. Mildly distended. Extremities--no cyanosis or clubbing. Trace bilateral pretibial pitting edema. Dermatologic--a few scattered ecchymoses Neurologic--cranial nerves II through XII grossly intact. Rheumatologic--normal range of motion. Psychiatric--normal affect. Results & Data Vital Signs (Past 12 Hours) Vital Signs Temp Pulse Pulse Resp BP Pulse Ox 10/16/19 21:05 37.1 C 90 18 148/80 H 94 10/16/19 20:15 37.5 C 82 18 168/72 H 92 10/16/19 19:05 36.9 C 81 18 149/67 H 91 10/16/19 18:21 36.6 C 74 18 142/78 H 94 10/16/19 17:44 36.8 C 72 17 164/75 H 95 10/16/19 17:30 36.8 C 72 18 164/73 H 95 10/16/19 17:25 72 18 145/74 H 95 10/16/19 17:15 70 20 147/80 H 96 10/16/19 17:10 36.9 C 72 18 166/75 H 97 10/16/19 17:00 73 20 168/88 H 95 10/16/19 16:50 77 18 135/96 98 10/16/19 16:45 83 18 196/89 H 100 10/16/19 16:35 87 20 183/92 H 99 10/16/19 16:26 36.3 C L 85 20 194/96 H 100 10/16/19 14:57 37.1 C 70 16 175/83 H 98 PG Care Time/CCT Total # of Minutes Spent Total Time Spent with Patient: Total time spent is greater than 50% in coordination of care (as documented) at patient's floor/unit and/or counseling patient: Coding Level of Care Code 48055 Subseq Hosp Care Lvl 3 Diagnoses Pancreatic cancer C25.9 Pancreatic malignancy location: unspecified History of biliary stent insertion Z98.890 Abnormal liver function tests R94.5 Thrombocytopenia D69.6 Hypomagnesemia E83.42 Lactic acidosis E87.2 Fall W19.XXXA Encounter type: initial encounter Diabetes mellitus E11.9 Altered mental status R41.82 Altered mental status type: unspecified Hyperlipidemia E78.5 GERD (gastroesophageal reflux disease) K21.9 Time Spent (min) 35 (1) Pancreatic cancer Pancreatic malignancy location: unspecified Qualified Code(s): C25.9 - Malignant neoplasm of pancreas, unspecified (2) Altered mental status Altered mental status type: unspecified Qualified Code(s): R41.82 - Altered mental status, unspecified (3) Fall Encounter type: initial encounter Qualified Code(s): W19.XXXA - Unspecified fall, initial encounter
[2019-10-17] MEDS: NSS + 20MEQ KCL 20 MEQ/1,000 ML BAG IV SCH ×3 (03:01→23:26)
[2019-10-17] MEDS: metroNIDAZOLE 500 MG/100 ML BAG IV SCH ×3 (06:17→21:22)
[2019-10-17] MEDS: INSULIN ASPART 100 UNITS/ML 3 ML PEN SC SCH ×3 (07:52→17:37)
[2019-10-17] MEDS: FAMOTIDINE 20 MG in SYRINGE 3 ML IV SCH ×2 (08:12→21:20)
[2019-10-17] MEDS ORDERED: COUGH DROP (SUGAR FREE) LOZ 24 LOZ/1 BOX BUCCAL ONE (09:07)
[2019-10-17 11:07] LABS: Hematocrit (blood only) 27.1 % (42-52); Hemoglobin 8.6 g/dL (14.0-18.0); Mean Corpuscular Hemoglobin 30.7 pg (25-34); Mean Corpuscular Hgb Conc 31.7 g/dL (32-36); Mean Corpuscular Volume 96.8 fL (80-100); RDW Coefficient of Variation 19.6 % (11.5-14.5); RDW Standard Deviation 67.8 fL (36.4-46.3); White Blood Count 6.51 K/uL (4.8-10.8)
[2019-10-17 11:09] LABS: Mean Platelet Volume 10.6 fL (7.4-10.4); Platelet Count 69 K/uL (130-400)
[2019-10-17 11:34] LABS: Albumin Level 2.7 gm/dl (3.4-5.0); Calcium 8.3 mg/dl (8.5-10.1); Creatinine Clr Calc Pharmacy 62.6 ml/min; Est GFR (African American) 87.2; Est GFR (Non-African American) 75.2; Magnesium 1.8 mg/dl (1.8-2.4); Potassium 4.2 mmol/L (3.5-5.1)
[2019-10-17 11:37] LABS: Albumin Globulin Ratio 0.9 (0.9-2); Bilirubin Direct 2.2 mg/dl (0-0.2); Bilirubin,Total 3.5 mg/dl (0.2-1); Globulin 3.1 gm/dl (2.5-4.0); Total Protein 5.8 gm/dl (6.4-8.2)
[2019-10-17] MEDS: cefTRIAXone SODIUM 2,000 MG in DEXTROSE 5% 50 ML IV SCH (12:52)
[2019-10-17] MEDS ORDERED: IBUPROFEN 200 MG TAB PO STA (19:23)
[2019-10-17] MEDS ORDERED: Nursing to Pharmacy Communication ONE (20:21)
--- NOTE | 2019-10-17 23:27 | Hospitalist Progress Note ---
Date of Service October 17, 2019 Assessment & Plan (1) Pancreatic cancer: Metastatic pancreatic cancer/history of metal biliary stent/abnormal liver enzymes- Order CT of abdomen pelvis with IV contrast to assess for possible stent complication. Placed on daptomycin IV and aztreonam IV Switched to ceftriaxone and flagyl. Consult gastroenterology Dr. Ru Miranda ERCP was unsuccessful. Patient needs to be transferred to tertiary center for another ERCP to remove biliary obstruction and exchange stent. Will keep NPO. Called [facility] No beds available. D/w Gi and Hospitalist: Dr. Healy Hopefully will be transferred tonight. (2) History of biliary stent insertion: See above (3) Abnormal liver function tests: Follow laboratory serially. Ordering CT of abdomen pelvis with IV contrast. ammonia level; this was normal. (4) Thrombocytopenia: Platelets are 134 upon admission, with a range 106-307. Follow serially. (5) Hypomagnesemia: Replace with total of 4 g magnesium sulfate IV (6) Lactic acidosis: Lactic acidosis improved. (7) Fall: Fall occurred secondary to generalized weakness. We will optimize electrolytes, treat potential sepsis, and may need PT OT consult. (8) Diabetes mellitus: . Hold metformin and Lantus 10 units subcu at bedtime. Placed on Accu-Cheks before meals and at bedtime with NovoLog coverage per scale (9) Altered mental status: May be on the basis of sepsis, dehydration, or possibly hepatic encephalopathy. (10) Hyperlipidemia: Hold atorvastatin for now. (11) GERD (gastroesophageal reflux disease): Change pantoprazole to famotidine 20 mg IV every 12 Subjective 84 yo male reports feeling well. He states he has no appetite at this time. He does not want to eat. Review of Systems Review of Systems: All systems reviewed & are unremarkable except as noted in HPI & below Physical Exam Physical Exam: The patient is awake, alert and oriented 3, mildly hard of hearing ,normocephalic and atraumatic, lying in bed and in no acute distress. HEENT--PERRL, EOMI, mucous membranes and oropharynx dry. Neck--supple. No JVD. No bruits. Thyroid normal, trachea midline, no adenopathy. Heart--normal S1 and S2. No murmurs, rubs or gallops. Lungs--clear bilaterally, no respiratory distress, no accessory muscle use. Abdomen--normal bowel sounds and soft. Nontender. Mildly distended. Extremities--no cyanosis or clubbing. Trace bilateral pretibial pitting edema. Neurologic--cranial nerves II through XII grossly intact. Rheumatologic--normal range of motion. Psychiatric--normal affect. Results & Data Vital Signs (Past 12 Hours) Vital Signs Temp Pulse Pulse Resp BP BP Pulse Ox 10/17/19 22:00 36.8 C 61 18 173/73 H 97 10/17/19 19:18 36.7 C 62 20 165/80 H 98 10/17/19 15:28 36.8 C 77 16 167/73 H 90 10/17/19 11:54 37.0 C 72 65 16 154/74 H 94 PG Care Time/CCT Total # of Minutes Spent Total Time Spent with Patient: Total time spent is greater than 50% in coordination of care (as documented) at patient's floor/unit and/or counseling patient: Coding Level of Care Code 68237 Subseq Hosp Care Lvl 3 Diagnoses Pancreatic cancer C25.9 Pancreatic malignancy location: unspecified History of biliary stent insertion Z98.890 Abnormal liver function tests R94.5 Thrombocytopenia D69.6 Hypomagnesemia E83.42 Lactic acidosis E87.2 Fall W19.XXXA Encounter type: initial encounter Diabetes mellitus E11.9 Altered mental status R41.82 Altered mental status type: unspecified Hyperlipidemia E78.5 GERD (gastroesophageal reflux disease) K21.9 Time Spent (min) 55 (1) Pancreatic cancer Pancreatic malignancy location: unspecified Qualified Code(s): C25.9 - Malignant neoplasm of pancreas, unspecified (2) Altered mental status Altered mental status type: unspecified Qualified Code(s): R41.82 - Altered mental status, unspecified (3) Fall Encounter type: initial encounter Qualified Code(s): W19.XXXA - Unspecified fall, initial encounter
[2019-10-18] MEDS: INSULIN ASPART 100 UNITS/ML 3 ML PEN SC SCH ×5 (00:02→23:56)
[2019-10-18] MEDS: metroNIDAZOLE 500 MG/100 ML BAG IV SCH ×3 (05:48→21:06)
[2019-10-18] MEDS: FAMOTIDINE 20 MG in SYRINGE 3 ML IV SCH ×2 (08:52→20:20)
[2019-10-18] MEDS: NSS + 20MEQ KCL 20 MEQ/1,000 ML BAG IV SCH ×2 (08:52→20:20)
[2019-10-18] MEDS: cefTRIAXone SODIUM 2,000 MG in DEXTROSE 5% 50 ML IV SCH (12:48)
[2019-10-18 15:28] LABS: Basophils # (auto) 0.01 K/uL (0-0.2); Basophils % (auto) 0.2 %; Eosinophils # (auto) 0.06 K/uL (0-0.5); Eosinophils % (auto) 1.2 %; Hemoglobin 8.8 g/dL (14.0-18.0); Immature Granulocytes # (auto) 0.03 K/uL (0.00-0.02); Immature Granulocytes % (auto) 0.6 %; Lymphocytes % (auto) 11.8 %; Mean Corpuscular Hemoglobin 30.6 pg (25-34); Mean Corpuscular Hgb Conc 31.4 g/dL (32-36); Mean Corpuscular Volume 97.2 fL (80-100); Mean Platelet Volume 11.6 fL (7.4-10.4); Monocytes # (auto) 0.71 K/uL (0.11-0.59); Monocytes % (auto) 13.9 %; Neutrophils # (auto) 3.69 K/uL (1.4-6.5); Neutrophils % (auto) 72.3 %; Platelet Count 101 K/uL (130-400); RDW Coefficient of Variation 19.9 % (11.5-14.5); RDW Standard Deviation 69.5 fL (36.4-46.3); Red Blood Count 2.88 M/uL (4.7-6.1)
[2019-10-18 15:52] LABS: Albumin Level 2.6 gm/dl (3.4-5.0); BUN Creatinine Ratio 19.8 (10-20); Calcium 8.3 mg/dl (8.5-10.1); Creatinine Clr Calc Pharmacy 69.2 ml/min; Est GFR (Non-African American) 81.1; Potassium 4.4 mmol/L (3.5-5.1)
[2019-10-18 15:58] LABS: Albumin Globulin Ratio 0.8 (0.9-2); Bilirubin,Total 1.5 mg/dl (0.2-1); Globulin 3.4 gm/dl (2.5-4.0)
--- NOTE | 2019-10-18 22:57 | Hospitalist Progress Note ---
Date of Service October 18, 2019 Assessment & Plan (1) Pancreatic cancer: Metastatic pancreatic cancer/history of metal biliary stent/abnormal liver enzymes- Order CT of abdomen pelvis with IV contrast to assess for possible stent complication. Placed on daptomycin IV and aztreonam IV intially then switched to ceftriaxone and flagyl. Consult gastroenterology Dr. Ru Miranda ERCP was unsuccessful. Patient needs to be transferred to tertiary center for another ERCP to remove biliary obstruction and exchange stent. Will keep NPO. Bed not available on 10/[address] [facility] No beds available. D/w Gi and Hospitalist: Dr. Healy Hopefully will be transferred tomorrow then. (2) History of biliary stent insertion: See above (3) Abnormal liver function tests: Follow laboratory serially. Ordering CT of abdomen pelvis with IV contrast. ammonia level; this was normal. (4) Thrombocytopenia: Platelets are 134 upon admission. Currently 101 Follow serially. (5) Hypomagnesemia: Replace with total of 4 g magnesium sulfate IV (6) Lactic acidosis: Lactic acidosis improved. (7) Fall: Fall occurred secondary to generalized weakness. We will optimize electrolytes, treat potential sepsis, and may need PT OT consult. (8) Diabetes mellitus: . Hold metformin and Lantus 10 units subcu at bedtime. Placed on Accu-Cheks before meals and at bedtime with NovoLog coverage per scale (9) Altered mental status: May be on the basis of sepsis, dehydration, or possibly hepatic encephalopathy. (10) Hyperlipidemia: Hold atorvastatin for now. (11) GERD (gastroesophageal reflux disease): Change pantoprazole to famotidine 20 mg IV every 12 (12) Hypertension: Blood pressure is elevated. will monitor. may restart home medication of metoprolol. Subjective 84 yo male reports no new symptoms. Review of Systems Review of Systems: All systems reviewed & are unremarkable except as noted in HPI & below Physical Exam Physical Exam: The patient is awake, alert and oriented 3, mildly hard of hearing ,normocephalic and atraumatic, lying in bed and in no acute distress. HEENT--PERRL, EOMI, mucous membranes and oropharynx dry. Neck--supple. No JVD. No bruits. Thyroid normal, trachea midline, no adenopathy. Heart--normal S1 and S2. No murmurs, rubs or gallops. Lungs--clear bilaterally, no respiratory distress, no accessory muscle use. Abdomen--normal bowel sounds and soft. Nontender. Mildly distended. Extremities--no cyanosis or clubbing. Trace bilateral pretibial pitting edema. Neurologic--cranial nerves II through XII grossly intact. Rheumatologic--normal range of motion. Psychiatric--normal affect. Results & Data ([facility]) Vital Signs (Past 12 Hours) Vital Signs Temp Pulse Resp BP Pulse Ox 10/18/19 22:42 36.6 C 58 L 18 188/80 H 97 10/18/19 19:12 36.6 C 60 20 179/83 H 94 10/18/19 15:01 36.6 C 63 16 190/87 H 97 PG Care Time/CCT Total # of Minutes Spent Total Time Spent with Patient: Total time spent is greater than 50% in coordination of care (as documented) at patient's floor/unit and/or counseling p atient: Coding Level of Care Code 05844 Subseq Hosp Care Lvl 2 Diagnoses Pancreatic cancer C25.9 Pancreatic malignancy location: unspecified History of biliary stent insertion Z98.890 Abnormal liver function tests R94.5 Thrombocytopenia D69.6 Hypomagnesemia E83.42 Lactic acidosis E87.2 Fall W19.XXXA Encounter type: initial encounter Diabetes mellitus E11.9 Altered mental status R41.82 Altered mental status type: unspecified Hyperlipidemia E78.5 GERD (gastroesophageal reflux disease) K21.9 Hypertension I10 Time Spent (min) 25 (1) Pancreatic cancer Pancreatic malignancy location: unspecified Qualified Code(s): C25.9 - Malignant neoplasm of pancreas, unspecified (2) Altered mental status Altered mental status type: unspecified Qualified Code(s): R41.82 - Altered mental status, unspecified (3) Fall Encounter type: initial encounter Qualified Code(s): W19.XXXA - Unspecified fall, initial encounter
[2019-10-19] MEDS: NSS + 20MEQ KCL 20 MEQ/1,000 ML BAG IV SCH ×2 (05:41→16:05)
[2019-10-19] MEDS: metroNIDAZOLE 500 MG/100 ML BAG IV SCH ×4 (05:41→21:20)
[2019-10-19] MEDS: INSULIN ASPART 100 UNITS/ML 3 ML PEN SC SCH ×3 (05:47→17:52)
[2019-10-19] MEDS: FAMOTIDINE 20 MG in SYRINGE 3 ML IV SCH ×2 (10:18→21:01)
[2019-10-19] MEDS: cefTRIAXone SODIUM 2,000 MG in DEXTROSE 5% 50 ML IV SCH (12:34)
--- NOTE | 2019-10-23 20:25 | Discharge Summary ---
Date of Service October 19, 2019 Admission HPI Per Admitting Provider For ERCP Principal Diagnosis obstructed biliary duct Discharge Exam The patient is awake, alert and oriented 3, mildly hard of hearing ,normocephalic and atraumatic, lying in bed and in no acute distress. HEENT--PERRL, EOMI, mucous membranes and oropharynx dry. Neck--supple. No JVD. No bruits. Thyroid normal, trachea midline, no adenopathy. Heart--normal S1 and S2. No murmurs, rubs or gallops. Lungs--clear bilaterally, no respiratory distress, no accessory muscle use. Abdomen--normal bowel sounds and soft. Nontender. Mildly distended. Extremities--no cyanosis or clubbing. Trace bilateral pretibial pitting edema. Neurologic--cranial nerves II through XII grossly intact. Rheumatologic--normal range of motion. Psychiatric--normal affect. Discharge Data Allergies Allergy/AdvReac Type Severity Reaction Status Date / Time amoxicillin Allergy Intermediate ITCHINESS,R Verified 10/15/19 03:57 JORGE L Penicillins Allergy Intermediate ITCHINESS, Verified 10/15/19 03:57 rash Consultations 10/15/19 06:00 ED Decision to Admit Stat 10/15/19 06:25 Consult Gastroenterology Routine 10/17/19 23:25 Burn CD for patient Routine Procedures Performed Operation Date: 10/16/19 07:00 Actual Procedures p Endoscopic Retrograde Cholangiopancreatogram(Not Applicable) - Ru Miranda Ordered Studies 10/15/19 04:54 CT abd pelvis IV con only Urgent 10/16/19 13:46 [place] ERCP biliary ductal Routine Hospital Course (1) Pancreatic cancer: Metastatic pancreatic cancer/history of metal biliary stent/abnormal liver enzymes- Order CT of abdomen pelvis with IV contrast to assess for possible stent complication. Placed on daptomycin IV and aztreonam IV intially then switched to ceftriaxone and flagyl. Consult gastroenterology Dr. Ru Miranda ERCP was unsuccessful. Patient needs to be transferred to tertiary center for another ERCP to remove biliary obstruction and exchange stent. Will keep NPO. Called [facility] D/[facility] Gi and Hospitalist: Dr. Healy (2) History of biliary stent insertion: See above (3) Abnormal liver function tests: Follow laboratory serially. Ordering CT of abdomen pelvis with IV contrast. ammonia level; this was normal. (4) Thrombocytopenia: Platelets are 134 upon admission. Currently 101 Follow serially. (5) Hypomagnesemia: Replace with total of 4 g magnesium sulfate IV (6) Lactic acidosis: Lactic acidosis improved. (7) Fall: Fall occurred secondary to generalized weakness. We will optimize electrolytes, treat potential sepsis, and may need PT OT consult. (8) Diabetes mellitus: . Hold metformin and Lantus 10 units subcu at bedtime. Placed on Accu-Cheks before meals and at bedtime with NovoLog coverage per scale (9) Altered mental status: May be on the basis of sepsis, dehydration, or possibly hepatic encephalopathy. (10) Hyperlipidemia: Hold atorvastatin for now. (11) GERD (gastroesophageal reflux disease): Change pantoprazole to famotidine 20 mg IV every 12 (12) Hypertension: Blood pressure is elevated. will monitor. may restart home medication of metoprolol. Total Time Total Time Spent Total Time Spent (In Minutes): 32 Total Time Includes: Examination of the Patient, Discharge Planning and Medication Reconciliation Discharge Plan Discharge Items Patient Disposition: Transfer Acute Care Hospital Reason For Visit: PANCREATIC CANCER, ABNORMAL LFT'S Discharge Diagnosis: biliary obstruction Activity: Resume your previous activity Non-emergency contact: Primary Care Provider Call non-emergency contact if: you have any medication questions Follow-up/Referrals: Gil Ambrose MD [Primary Care Provider] - Diet: Regular Diet Comment: SABI Antony Attending Provider Instructions: Transfer to [place] Pending Studies at Discharge: No Stand-Alone Forms: [facility] Patient informed of condition?: No DNR: No Discharge Level of Care: Other Communicable Disease: No Discharge Prognosis: Stable Lines: None Urinary Catheter: No Medications and DC Order Prescriptions: New ceftriaxone 2 gram recon soln 2 gm IV DAILY Qty: 7 RF: 0 metronidazole 500 mg tablet 500 mg PO Q8H 7 Days Qty: 21 RF: 0 Continued atorvastatin 20 mg tablet 20 mg PO DAILY Qty: 90 RF: 3 prednisone 5 mg Tablet 5 mg PO DAILY RF: 0 ondansetron HCl [Zofran] 8 mg Tablet 8 mg PO Q8H PRN (Reason: Nausea) RF: 0 nitroglycerin 0.4 mg Tablet, Sublingual 0.4 mg sublingual DIRECTED PRN (Reason: Angina) RF: 0 metoprolol succinate 25 mg Tablet Extended Release 24 Hr 12.5 mg PO DAILY RF: 0 metformin 1,000 mg Tablet 1,000 mg PO BID RF: 0 ketoconazole 2 % Shampoo 2 % TOPICAL DIRECTED RF: 0 cholecalciferol (vitamin D3) [Vitamin D3] 1,000 unit Capsule 1,000 unit PO DAILY RF: 0 cetirizine [Zyrtec] 10 mg Tablet 10 mg PO DAILY PRN (Reason: Allergy Symptoms) RF: 0 calcium carbonate-vit D3-min 600 mg calcium- 200 unit Tablet 1 tab PO DAILY RF: 0 aspirin 81 mg Tablet,Delayed Release (Dr/Ec) 81 mg PO DAILY RF: 0 allopurinol 100 mg Tablet 100 mg PO DAILY RF: 0 acetaminophen 325 mg Tablet 325 mg PO Q4H PRN (Reason: Pain) RF: 0 Lantus U-100 Insulin 100 unit/mL Solution 10 unit SUBCUT HS RF: 0 insulin lispro [Humalog KwikPen Insulin] 100 unit/mL Insulin Pen 5 unit SUBCUT AC PRN (Reason: bsg > 130) RF: 0 pantoprazole 40 mg tablet,delayed release (DR/EC) 40 mg PO DAILY RF: 0 sennosides-docusate sodium [Senna-S] 8.6-50 mg Tablet 1 tab-cap PO HS RF: 0 Discharge Orders: Discharge Order (Routine); Ordered 10/17/19 Ordered By: Donovan Culp Admission Data Admit Date/Time: 10/15/19 05:18 Attending Provider: Donovan Culp Admit Provider: Dom Tafoya Primary Care Provider: Gil Ambrose Other Providers: Ru Miranda ; Andrew Tracy Other Interventions: Discharge Summary Assessment (RN) Last Done: 10/19/19 21:24 DC Date/Time DO NOT enter until pt leaves facility: 10/19/19 21:30 Coding Level of Care Code D/C Day Management >30 mins Diagnoses Pancreatic cancer C25.9 Pancreatic malignancy location: unspecified History of biliary stent insertion Z98.890 Abnormal liver function tests R94.5 Thrombocytopenia D69.6 Hypomagnesemia E83.42 Lactic acidosis E87.2 Fall W19.XXXA Encounter type: initial encounter Diabetes mellitus E11.9 Altered mental status R41.82 Altered mental status type: unspecified Hyperlipidemia E78.5 GERD (gastroesophageal reflux disease) K21.9 Hypertension I10
== END 2019-10-19 21:30 | disposition short-term general hospital (02) | DRG 920 ==
LOC: ED 02:24 → 4W 05:18 → SUATTDRO 05:18 → 4W 05:46